=== PATIENT | male | born 1970 | race Caucasian/White ===

== ENCOUNTER 2019-04-08 19:32 | Emergency (ER) | payer OTHER ==
--- OUTSIDE RECORDS SUMMARY | 2019-04-08 19:35 | XMS REPORT ---
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 Assessment Hyperlipidemia, mixed E78.2 Active Assessment Vitamin D deficiency E55.9 Active Assessment Allergic rhinitis, seasonal J30.2 Active Problem Hyperlipidemia, mixed E78.2 Active Problem Allergic rhinitis, seasonal J30.2 Active Problem Vitamin D deficiency E55.9 Active Problem Controlled type 2 diabetes mellitus E11.29 Active with other diabetic kidney complication, without long-term current use of insulin Assessment Controlled type 2 diabetes mellitus E11.29 Active with other diabetic kidney complication, without long-term current use of insulin Problem 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 Problem Renal colic N23 Active Medications Medication Code Code Instructions Start End Status Dosage System Date Date ProAir [facility] 47711355823 108 (90 Base) Active 2 puffs as RespiClick MCG/ACT needed Inhalation every 6 hrs Lisinopril [facility] 99062889537 5 MG Orally Once Active 1 tablet a day Glyxambi [facility] 21813621086 25-5 MG Orally Rebecca Active 1 tablet Once a day 21, in the 2018 morning Metformin HCl ND 93122133323 1000 MG Orally Active 1 tablet Twice a day with meals Flomax [facility] 75638330554 0.4 MG Orally Active 1 capsule Once a day Lipitor [facility] 71698624669 20 MG Orally Active 1 tablet Once a day Results No Known Results Summary Purpose [employer] Submission
--- OUTSIDE RECORDS SUMMARY | 2019-04-08 19:35 | XMS REPORT ---
:1970 Author Organization eClinicalWorks Care Team Providers Name Role Phone Yoli Fitzpatrickh Provider Role Unavailable Allergies, Adverse Reactions, Alerts Substance Reaction Event Type N.K.D.A. 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 Problem Renal colic N23 Active Problem Hyperlipidemia, mixed E78.2 Active Problem Allergic rhinitis, seasonal J30.2 Active Assessment Adult BMI 36.0-36.9 kg/sq m Z68.36 Active Assessment Kidney stones N20.0 Active Assessment Encounter for dietary counseling and Z71.3 Active surveillance Assessment Vitamin D deficiency E55.9 Active Assessment 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 Active Assessment Allergic rhinitis, seasonal J30.2 Active Assessment Hyperlipidemia, mixed E78.2 Active Assessment 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 Assessment Controlled type 2 diabetes mellitus E11.29 Active with other diabetic kidney complication, without long-term current use of insulin Medications Medication Code Code Instructions Start End Status Dosage System Date Date ProAir [facility] 13024717995 108 (90 Base) Active 2 puffs as RespiClick MCG/ACT needed Inhalation every 6 hrs Lisinopril [facility] 35349901982 5 MG Orally Once Active 1 tablet a day Flomax [facility] 85809064271 0.4 MG Orally Active 1 capsule Once a day Gabapentin [facility] 87986173036 300 MG Orally Active 1 capsule Twice a day Lipitor [facility] 62525370685 40 MG Orally Active 1 tablet Once a day Glyxambi [facility] 56117384313 25-5 MG Orally Active 1 tablet Once a day in the morning Gabapentin [facility] 44185796298 300 MG Orally Active 1 capsule [facility] 36429153755 - Active USE 2 TIMES A DAY E 11.9 Results No Known Results Summary Purpose eClinicalWorks Submission
--- OUTSIDE RECORDS SUMMARY | 2019-04-08 19:35 | XMS REPORT ---
:1970 Author Organization eClinicalWorks Care Team Providers Name Role Phone Amari En Provider Role Unavailable Allergies, Adverse Reactions, Alerts Substance Reaction Event Type N.K.D.A. 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 Active Problem Renal colic N23 Active Problem Kidney stones N20.0 Active Problem Hyperlipidemia, mixed E78.2 Active Problem Allergic rhinitis, seasonal J30.2 Active Problem Controlled type 2 diabetes mellitus E11.29 Active with other diabetic kidney complication, without long-term current use of insulin Problem Vitamin D deficiency E55.9 Active Assessment 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 Assessment Vitamin D deficiency E55.9 Active Assessment Kidney stones N20.0 Active Assessment 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 Active Assessment Allergic rhinitis, seasonal J30.2 Active Assessment Hyperlipidemia, mixed E78.2 Active Medications Medication Code Code Instructions Start End Status Dosage System Date Date Lyrica [facility] 18246648700 50 MG Orally Inactive 1 capsule Twice a day Gabapentin [facility] 93518226138 300 MG Orally Active 1 capsule Twice a day Glyxambi [facility] 40087606393 25-5 MG Orally Active 1 tablet Once a day in the morning Lipitor [facility] 25651122356 20 MG Orally Active 1 tablet Once a day Lisinopril [facility] 06580236649 5 MG Orally Active 1 tablet Once a day Flomax [facility] 65622269317 0.4 MG Orally Active 1 capsule Once a day OneTouch Verio [facility] 72035994853 - Active USE 2 TIMES A DAY E 11.9 Metformin HCl [facility] 00899753692 1000 MG Orally Inactive 1 tablet Twice a day with meals ProAir [facility] 96153211102 108 (90 Base) Active 2 puffs as RespiClick MCG/ACT needed Inhalation every 6 hrs Results No Known Results Summary Purpose eClinicalWorks Submission
--- OUTSIDE RECORDS SUMMARY | 2019-04-08 19:35 | XMS REPORT ---
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 Assessment Kidney stones N20.0 Active Assessment Controlled type 2 diabetes mellitus E11.29 Active with other diabetic kidney complication, without long-term current use of insulin Assessment Hyperlipidemia, mixed E78.2 Active Problem 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 Active Problem Renal colic N23 Active Problem Kidney stones N20.0 Active Problem Hyperlipidemia, mixed E78.2 Active Problem Allergic rhinitis, seasonal J30.2 Active Problem Controlled type 2 diabetes mellitus E11.29 Active with other diabetic kidney complication, without long-term current use of insulin Problem Vitamin D deficiency E55.9 Active Medications Medication Code System Code Instructions Start End Date Status Dosage Date Lipitor [facility] 23471519870 20 MG Orally Active 1 tablet Once a day Flomax [facility] 74493859489 0.4 MG Orally Active 1 capsule Once a day Glyxambi [facility] 99262223169 25-5 MG Orally Active 1 tablet in Once a day the morning Lisinopril [facility] 12728739234 5 MG Orally Once Active 1 tablet a day Results No Known Results Summary Purpose eClinicalWorks Submission
--- OUTSIDE RECORDS SUMMARY | 2019-04-08 19:35 | XMS REPORT ---
:1970 Author Organization eClinicalWorks Care Team Providers Name Role Phone En Fitzpatrick Provider Role Unavailable Allergies No Known Allergies Problems Problem Type Condition Code Onset Dates Condition Status Problem 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 [...] D deficiency E55.9 Active Medications Medication Code Code Instructions Start End Status Dosage System Date Date Lisinopril [facility] 49592668964 5 MG Orally Once Active 1 tablet a day Lipitor ND 21818665666 20 MG Orally Active 1 tablet Once a day Metformin HCl ND 15420682661 1000 MG Orally Active 1 tablet Twice a day with meals Glyxambi ND 26608624977 25-5 MG Orally Active 1 tablet Once a day in the morning Lyrica ND 63214961797 50 MG Orally March 28, March 31, Active 1 capsule Twice a day 2017 2017 Gabapentin ND 62401619004 100 MG Orally March 31, Active 1 capsule Twice a day 2017 ProAir [facility] 57785229105 108 (90 Base) Active 2 puffs as RespiClick MCG/ACT needed Inhalation every 6 hrs Flomax [facility] 21609285440 0.4 MG Orally Active 1 capsule Once a day Results No Known Results Summary Purpose eClinicalWorks Submission
--- OUTSIDE RECORDS SUMMARY | 2019-04-08 19:35 | XMS REPORT ---
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 Active Problem Renal colic N23 Active Problem Kidney stones N20.0 Active Problem Hyperlipidemia, mixed E78.2 Active Problem Allergic rhinitis, seasonal J30.2 Active Problem Controlled type 2 diabetes mellitus E11.29 Active with other diabetic kidney complication, without long-term current use of insulin Problem Vitamin D deficiency E55.9 Active Assessment Allergic rhinitis, seasonal J30.2 Active Assessment 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 Assessment Vitamin D deficiency E55.9 Active Assessment Kidney stones N20.0 Active Assessment 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 Active Medications Medication Code Code Instructions Start End Status Dosage System Date Date Lipitor [facility] 61127771534 20 MG Orally Active 1 tablet Once a day Lisinopril [facility] 28045011523 5 MG Orally Once Active 1 tablet a day Flomax [facility] 82473155036 0.4 MG Orally Active 1 capsule Once a day Metformin HCl [facility] 31337578663 1000 MG Orally Active 1 tablet Twice a day with meals Glyxambi [facility] 24873870149 25-5 MG Orally Active 1 tablet Once a day in the morning Lyrica ND 24094651176 50 MG Orally March 28, Active 1 capsule Twice a day 2018 ProAir [facility] 05261661564 108 (90 Base) Active 2 puffs as RespiClick MCG/ACT needed Inhalation every 6 hrs Results No Known Results Summary Purpose eClinicalWorks Submission
--- OUTSIDE RECORDS SUMMARY | 2019-04-08 19:35 | XMS REPORT | Clinical Summary ---
:1970 Author Organization [facility] Address [address] [place] [address] Care Team Providers Name Role Phone Asked, No Pcp Primary Care Provider Unavailable Allergies Active Allergy Reactions Severity Noted Date Comments Aspirin 12/13/2016 Hyperthermia (during childhood) Medications Medication Sig Dispensed Refills Start Date End Date Status CETIRIZINE HCL (ZYRTEC Take 1 tablet by 0 Active ORAL) mouth daily. NAPROXEN SODIUM (ALEVE Take 2 tablets by 0 Active ORAL) mouth daily as needed. HYDROCODONE/ACETAMINOP Take by mouth as 0 Active HEN (NORCO ORAL) needed. Active Problems Not on file Social History Tobacco Use Types Packs/Day Years Used Date Current Every Day Smoker Cigarettes 0.25 35 Alcohol Use Drinks/Week oz/Week Comments No Sex Assigned at Date Recorded Not on file Job Start Date Occupation Industry Not on file Not on file Not on file Travel History Travel Start Travel End No recent travel history available. Last Filed Vital Signs Not on file Plan of Treatment Health Maintenance Due Date Last Done Comments COLON CANCER SCREENING 2018 SHINGLES VACCINES (#1) 2018 INFLUENZA VACCINE 06/18/2019 Results Not on fileafter 04/07/2018 Advance Directives Patient has advance care planning documents on file. For more information, please contact:[id number] [place] [address]
--- NOTE | 2019-04-08 20:47 | RAD REPORT ---
EXAM DESCRIPTION: RAD - Shoulder Right 2 View - 04/08/2019 8:38 pm CLINICAL HISTORY: PAIN COMPARISON: No comparisons FINDINGS: Mild AC joint and glenohumeral joint arthritic changes. No fracture or dislocation seen.
--- NOTE | 2019-04-08 20:59 | EDPHYS ---
Physician Documentation [facility] Name: Parker Miller Jr Age: 48 yrs Sex: Male : 1970 Arrival Date: 04/08/2019 Time: 19:36 Bed 19 Private MD: ED Physician Sukumar Leblanc HPI: 04/08 20:53 This 48 yrs old Male presents to ER via Ambulatory with complaints of gs Shoulder Pain, Arm Pain, down to fingers. 20:53 The patient or guardian complains of pain. right shoulder. Onset: The symptoms/episode gs began/occurred 6 month(s) ago. Modifying factors: The symptoms are aggravated by movement. Associated signs and symptoms: Pertinent negatives: chest pain, shortness of breath. Severity of symptoms: At their worst the symptoms were moderate, in the emergency department the symptoms are unchanged. The patient has experienced similar episodes in the past, chronically. Historical: - Allergies: 19:48 Aspirin; aj1 - Home Meds: 19:48 unknown- patient does not know what medications he takes [Active]; aj1 - PMHx: 19:48 Kidney stones; Diabetes - NIDDM; neuropathy; aj1 - Immunization history:: Flu vaccine is not up to date. - Social history:: Smoking status: Patient uses tobacco products, smokes one pack cigarettes per day. - Ebola Screening: : Patient denies travel to an Ebola-affected area in the 21 days before illness onset. ROS: 20:53 All other systems are negative. gs Exam: 20:53 Head/Face: Normocephalic, atraumatic. Eyes: Pupils equal round and reactive to light, gs extra-ocular motions intact. Lids and lashes normal. Conjunctiva and sclera are non-icteric and not injected. Cornea within normal limits. Periorbital areas with no swelling, redness, or edema. ENT: Nares patent. No nasal discharge, no septal abnormalities noted. Tympanic membranes are normal and external auditory canals are clear. Oropharynx with no redness, swelling, or masses, exudates, or evidence of obstruction, uvula midline. Mucous membranes moist. Neck: Trachea midline, no thyromegaly or masses palpated, and no cervical lymphadenopathy. Supple, full range of motion without nuchal rigidity, or vertebral point tenderness. No Meningismus. Chest/axilla: Normal chest wall appearance and motion. Nontender with no deformity. No lesions are appreciated. Cardiovascular: Regular rate and rhythm with a normal S1 and S2. No gallops, murmurs, or rubs. Normal PMI, no JVD. No pulse deficits. Respiratory: Lungs have equal breath sounds bilaterally, clear to auscultation and percussion. No rales, rhonchi or wheezes noted. No increased work of breathing, no retractions or nasal flaring. Abdomen/GI: Soft, non-tender, with normal bowel sounds. No distension or tympany. No guarding or rebound. No evidence of tenderness throughout. Skin: Warm, dry with normal turgor. Normal color with no rashes, no lesions, and no evidence of cellulitis. Neuro: Awake and alert, GCS 15, oriented to person, place, time, and situation. Cranial nerves II-XII grossly intact. Motor strength 5/5 in all extremities. Sensory grossly intact. Cerebellar exam normal. Normal gait. 20:53 Constitutional: The patient appears alert, awake. 20:53 Musculoskeletal/extremity: Pulses: are normal with no appreciated deficits, Sensation intact. Joints: the right shoulder displays painful range of motion, tenderness. Vital Signs: 19:48 BP 114 / 75; Pulse 71; Resp 18; Temp 97.4; Pulse Ox 95% on R/A; Weight 111.13 kg (R); aj1 Height 5 ft. 9 in. (175.26 cm) (R); Pain 10/10; 21:08 BP 121 / 79; Pulse 74; Resp 18; Temp 97.5(O); Pulse Ox 99% on R/A; Pain 10/10; ed1 19:48 Body Mass Index 36.18 (111.13 kg, 175.26 cm) [facility] MDM: 20:18 Patient medically screened. gs 20:53 Differential diagnosis: tendonitis. Data reviewed: vital signs, nurses notes, gs radiologic studies. Counseling: I had a detailed discussion with the patient and/or guardian regarding: the historical points, exam findings, and any diagnostic results supporting the discharge/admit diagnosis, the need for outpatient follow up, a orthopedic surgeon. Response to treatment: the patient's symptoms have mildly improved after treatment, and as a result, I will discharge patient. 04/08 20:21 Order name: Shoulder Right (2 View) XRAY; Complete Time: 20:53 Administered Medications: 21:08 Drug: traMADol 50 mg Route: PO; ed1 21:10 Follow up: Response: Medication administered at discharge. ed1 Disposition: 04/08/19 20:58 Discharged to Home. Impression: Arthropathies in other specified diseases classified elsewhere, right shoulder. - Condition is Stable. - Discharge Instructions: Arthritis, [id number]. - Prescriptions for Tramadol 50 mg Oral Tablet - take 1 tablet by ORAL route every 8 hours as needed; 12 tablet. - Medication Reconciliation Form, Thank You Letter, Antibiotic Education, Prescription Opioid Use form. - Follow up: Private Physician; When: 2 - 3 days; Reason: Re-evaluation by your physician. Follow up: Juma Sena MD; When: 2 - 3 days; Reason: Re-evaluation by your physician. Signatures: Dispatcher [employer] EDMS Isela Doty RN RN aj1 Silvia Zepeda RN RN ed1 Sukumar Leblanc MD MD Corrections: (The following items were deleted from the chart) 20:59 20:58 04/08/2019 20:58 Discharged to Home. Impression: Arthropathies in other specified gs diseases classified elsewhere, right shoulder. Condition is Stable. Forms are Medication Reconciliation Form, Thank You Letter, Antibiotic Education, Prescription Opioid Use. Follow up: Private Physician; When: 2 - 3 days; Reason: Re-evaluation by your physician. 21:10 20:59 04/08/2019 20:58 Discharged to Home. Impression: Arthropathies in other specified ed1 diseases classified elsewhere, right shoulder. Condition is Stable. Forms are Medication Reconciliation Form, Thank You Letter, Antibiotic Education, Prescription Opioid Use. Follow up: Private Physician; When: 2 - 3 days; Reason: Re-evaluation by your physician. Follow up: Juma Sena; When: 2 - 3 days; Reason: Re-evaluation by your physician.
--- NOTE | 2019-04-08 20:59 | ER ---
Nurse's Notes [facility] Name: Parker Miller Jr Age: 48 yrs Sex: Male : 1970 Arrival Date: 04/08/2019 Time: 19:36 Bed 19 Private MD: Diagnosis: Arthropathies in other specified diseases classified elsewhere, right shoulder Presentation: 04/08 19:45 Presenting complaint: Patient states: "Im having sharp pain in my arm, from my shoulder aj1 all the way down to my fingers" Reports pain to right shoulder and arm since July 2018. Patient was advised by his primary care doctor to take more of his gabapentin, but he says that that is not helping. Transition of care: patient was not received from another setting of care. Onset of symptoms was July 2018. Risk Assessment: Do you want to hurt yourself or someone else? Patient reports no desire to harm self or others. Initial Sepsis Screen: Does the patient meet any 2 criteria? No. Patient's initial sepsis screen is negative. Does the patient have a suspected source of infection? No. Patient's initial sepsis screen is negative. Care prior to arrival: None. 19:45 Method Of Arrival: Ambulatory aj1 19:45 Acuity: LAKEISHA 4 aj1 Triage Assessment: 19:48 General: Appears in no apparent distress. comfortable, Behavior is calm, cooperative, aj1 appropriate for age. Pain: Complains of pain in right arm. Neuro: Level of Consciousness is awake, alert, obeys commands. Cardiovascular: Patient's skin is warm and dry. Respiratory: Airway is patent Respiratory effort is even, unlabored, Respiratory pattern is regular, symmetrical. Historical: - Allergies: 19:48 Aspirin; aj1 - Home Meds: 19:48 unknown- patient does not know what medications he takes [Active]; aj1 - PMHx: 19:48 Kidney stones; Diabetes - NIDDM; neuropathy; aj1 - Immunization history:: Flu vaccine is not up to date. - Social history:: Smoking status: Patient uses tobacco products, smokes one pack cigarettes per day. - Ebola Screening: : Patient denies travel to an Ebola-affected area in the 21 days before illness onset. Screenin:50 Abuse screen: Denies threats or abuse. Denies injuries from another. Nutritional ed1 screening: No deficits noted. Tuberculosis screening: No symptoms or risk factors identified. Fall Risk None identified. Assessment: 19:50 General: Appears in no apparent distress. Behavior is calm, cooperative. Pain: ed1 Complains of pain in right arm Pain currently is 10 out of 10 on a pain scale. Quality of pain is described as sharp, shooting, Pain began July. Neuro: Level of Consciousness is awake, alert, obeys commands, Oriented to person, place, time, situation, Inspector Clip On Sunglasses are equal bilaterally. Cardiovascular: Denies chest pain, Heart tones S1 S2 present. Respiratory: Airway is patent Respiratory effort is even, unlabored, Respiratory pattern is regular, symmetrical, Breath sounds are clear bilaterally. Denies cough, shortness of breath. GI: No signs and/or symptoms were reported involving the gastrointestinal system. : No signs and/or symptoms were reported regarding the genitourinary system. EENT: No signs and/or symptoms were reported regarding the EENT system. Derm: Skin is intact, is healthy with good turgor, Skin is dry, Skin is normal, Skin temperature is warm. Musculoskeletal: Circulation, motion, and sensation intact. Range of motion: limited in right shoulder Reports pain in right arm since July. 21:08 Reassessment: Patient appears in no apparent distress at this time. No changes from ed1 previously documented assessment. Patient and/or family updated on plan of care and expected duration. Pain level reassessed. Patient is alert, oriented x 3, equal unlabored respirations, skin warm/dry/pink. Vital Signs: 19:48 BP 114 / 75; Pulse 71; Resp 18; Temp 97.4; Pulse Ox 95% on R/A; Weight 111.13 kg (R); aj1 Height 5 ft. 9 in. (175.26 cm) (R); Pain 10/10; 21:08 BP 121 / 79; Pulse 74; Resp 18; Temp 97.5(O); Pulse Ox 99% on R/A; Pain 10/10; ed1 19:48 Body Mass Index 36.18 (111.13 kg, 175.26 cm) [facility] ED Course: 19:36 Patient arrived in ED. es 19:46 Triage completed. aj1 19:48 Arm band placed on Patient placed in an exam room. aj1 19:50 Patient has correct armband on for positive identification. Bed in low position. Call ed1 light in reach. Adult w/ patient. 19:53 Sukumar Leblanc MD is Attending Physician. gs 20:29 Silvia Zepeda, RN is Primary Nurse. ed1 20:38 Shoulder Right (2 View) XRAY In Process Unspecified. EDMS 20:58 Juma Sena MD is Referral Physician. gs 21:08 No provider procedures requiring assistance completed. Patient did not have IV access ed1 during this emergency room visit. Administered Medications: 21:08 Drug: traMADol 50 mg Route: PO; ed1 21:10 Follow up: Response: Medication administered at discharge. ed1 Outcome: 20:58 Discharge ordered by . gs 21:08 Discharged to home ambulatory, with significant other. ed1 21:08 Condition: good 21:08 Discharge instructions given to patient, Instructed on discharge instructions, follow up and referral plans. medication usage, Demonstrated understanding of instructions, follow-up care, medications, Prescriptions given X 1. 21:10 Patient left the ED. ed1 Signatures: Dispatcher [employer] EDMS Isela Doty RN RN aj1 Lexi Jack Erika, RN RN ed1 Sukumar Leblanc MD MD
[2019-04-08] MEDS ORDERED: TRAMADOL HCL 50 MG TAB ONE (21:17)
[2019-04-08 21:36] VITALS: BP 121/79; TEMP 97.5; O2SAT 99
== END 2019-04-08 21:10 | disposition home or self-care (01) ==
LOC: ER 19:32
DX: M12.811 Other specific arthropathies, not elsewhere classified, right shoulder (principal); F17.210 Nicotine dependence, cigarettes, uncomplicated
CPT/HCPCS: 99283

== ENCOUNTER 2020-02-01 16:41 | Emergency (ER) | payer OTHER ==
--- OUTSIDE RECORDS SUMMARY | 2020-02-01 16:43 | XMS REPORT ---
:1970 Author Organization eClinicalWorks Care Team Providers Name Role Phone Yoli Fitzpatrickh Provider Role Unavailable Allergies, Adverse Reactions, Alerts Substance Reaction Event Type N.K.D.A. Info Not Available Non Drug Allergy Problems Problem Type Condition Code Onset Dates Condition Status Problem Vitamin D deficiency E55.9 Active Problem Renal colic N23 Active Problem Controlled type 2 diabetes mellitus E11.29 Active with other diabetic kidney complication, without long-term current use of insulin Problem Adult BMI 36.0-36.9 kg/sq m Z68.36 Active Assessment Noncompliance w/medication treatment Z91.14 Active due to intermit use of medication Problem 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 Active Assessment Noncompliance with dietary Z91.11 Active restriction Problem Noncompliance with dietary Z91.11 Active restriction Problem Allergic rhinitis, seasonal J30.2 Active Problem 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 Problem Kidney stones N20.0 Active Problem Hyperlipidemia, mixed E78.2 Active Assessment Kidney stones N20.0 Active Assessment Allergic rhinitis, seasonal J30.2 Active Assessment Encounter for dietary counseling and Z71.3 Active surveillance Assessment Adult BMI 36.0-36.9 kg/sq m Z68.36 Active Assessment 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 Active Assessment Hyperlipidemia, mixed E78.2 Active Assessment 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 Assessment Controlled type 2 diabetes mellitus E11.29 Active with other diabetic kidney complication, without long-term current use of insulin Assessment Vitamin D deficiency E55.9 Active Medications Medication Code Code Instructions Start End Date Status Dosage System Date OneTouch Verio [facility] 30275696185 - Active USE 2 TIMES A DAY E 11.9 Losartan ND 81717656802 25 MG Orally Oct 22, Active 1 tablet Potassium Once a day 2018 ProAir [facility] 20225166401 108 (90 Base) Active 2 puffs as RespiClick MCG/ACT needed Inhalation every 6 hrs Lipitor [facility] 56240588183 40 MG Orally Active 1 tablet Once a day Gabapentin [facility] 76127956473 300 MG Orally Active 1 capsule Twice a day Gabapentin [facility] 16113069646 300 MG Orally Active 1 capsule Three times a day Flomax [facility] 04803272968 0.4 MG Orally Active 1 capsule Once a day Glyxambi [facility] 92059285578 25-5 MG Orally January Active 1 tablet Once a day 2019 in the morning Vitamin D3 [facility] 59312466553 93196 UNIT Oct 22January Active 1 capsule Orally Once a 2019 2019 week x 12 weeks Lisinopril [facility] 49286435527 5 MG Orally Inactive 1 tablet Once a day Results No Known Results Summary Purpose eClinicalWorks Submission
--- OUTSIDE RECORDS SUMMARY | 2020-02-01 16:43 | XMS REPORT ---
[...] End Status Dosage System Date Date ProAir [facility] 22536866782 108 (90 Base) Active 2 puffs as RespiClick MCG/ACT needed Inhalation every [address] [facility] 66428711991 5 MG Orally Once Active 1 tablet a day Flomax [facility] 00363801837 0.4 MG Orally Active 1 capsule Once a day Gabapentin [facility] 25454747792 300 MG Orally Active 1 capsule Twice a day Lipitor [facility] 96823296785 40 MG Orally Active 1 tablet Once a day Glyxambi [facility] 71688633552 25-5 MG Orally Active 1 tablet Once a day in the morning Gabapentin [facility] 16855534207 300 MG Orally Active 1 capsule [facility] 87571749682 - Active USE 2 TIMES A DAY E 11.9 Results No Known Results Summary Purpose eClinicalWorks Submission
--- OUTSIDE RECORDS SUMMARY | 2020-02-01 16:43 | XMS REPORT ---
:1970 [facility] Address [address] [place] [address] [address] [place] [address] Care Team Providers Name Role Phone Unavailable Unavailable Unavailable Problems This patient has no known problems. Allergies, Adverse Reactions, Alerts This patient has no known allergies or adverse reactions. Medications This patient has no known medications.
--- OUTSIDE RECORDS SUMMARY | 2020-02-01 16:43 | XMS REPORT ---
[...] Start End Date Status Dosage Date Lipitor [facility] 17664024044 20 MG Orally Active 1 tablet Once a day Flomax [facility] 14326766021 0.4 MG Orally Active 1 capsule Once a day Glyxambi [facility] 51565115485 25-5 MG Orally Active 1 tablet in Once a day the morning Lisinopril [facility] 16374069641 5 MG Orally Once Active 1 tablet a day Results No Known Results Summary Purpose eClinicalWorks Submission
[2020-02-01] MEDS ORDERED: MORPHINE 4 MG/ML SYR ONE ×2 (17:15→19:42)
[2020-02-01] MEDS ORDERED: NA CHLORIDE 0.9% 1,000 ML ONE (17:15)
[2020-02-01] MEDS ORDERED: ONDANSETRON 4 MG/2 ML VIAL ONE (17:15)
[2020-02-01 17:17] LABS: Absolute Lymphocytes (CBC) 1.8 K/uL (0.7-4.9); Basophils % 0.7 % (0-1.3); Hematocrit 50.5 % (39.6-49.0); Lymphocytes % 24.7 % (15.3-44.8); MPV 10.3 fL (7.6-11.3); RBC Red Blood Cell Count 5.14 M/uL (4.33-5.43)
[2020-02-01 17:33] LABS: ALT/SGPT 51 U/L (12-78); AST/SGOT 20 U/L (15-37); Albumin 3.7 g/dL (3.4-5.0); Alkaline Phosphatase 87 U/L (45-117); BUN Blood Urea Nitrogen 16 mg/dL (7-18); Bicarbonate 22 mmol/L (21-32); Bilirubin Direct < 0.1 mg/dL (0-0.2); Bilirubin Total 0.4 mg/dL (0.2-1.0); Glucose Level 241 mg/dL (74-106); Lipase 115 U/L (73-393); Potassium 3.7 mmol/L (3.5-5.1); Protein, Total 7.1 g/dL (6.4-8.2); Sodium Level 137 mmol/L (136-145)
--- NOTE | 2020-02-01 18:33 | RAD REPORT ---
EXAM DESCRIPTION: CT - Abdomen Pelvis W Contrast - 02/01/2020 6:10 pm CLINICAL HISTORY: ABD PAIN COMPARISON: No comparisons TECHNIQUE: Biphasic, helical CT imaging of the abdomen and pelvis was performed following 100 ml non -ionic IV contrast. No oral contrast. All CT scans are performed using dose optimization technique as appropriate and may include automated exposure control or mA/KV adjustment according to patient size. FINDINGS: No suspicious findings in the lung bases. Fatty infiltration of the liver is present. No focal liver lesion. Spleen and pancreas show no suspic ious findings. Gallbladder and biliary tree are also without suspicious finding. Symmetric renal function is seen with no hydronephrosis or suspicious renal mass. No pyelonephritis o r acute parenchymal process. Nonobstructing cluster of calcifications lower pole right kidney 12 mm i n diameter. There is a 7 mm calcification lower pole left kidney. No bladder abnormality. No adrenal abnormalities. No dilated bowel loops or bowel wall thickening. Appendix is normal. No active GI process identifiabl e. No free air, free fluid or inflammatory stranding. No mass or bulky lymphadenopathy. Very minimal right inguinal hernia. No suspicious bony findings. No acute vascular finding. IMPRESSION: Contrast enhanced CT abdomen and pelvis showing no acute finding. Nonacute findings det radha in the body of the report.
--- NOTE | 2020-02-01 19:39 | EDPHYS ---
Physician Documentation [facility] Name: Parker Miller Jr Age: 49 yrs Sex: Male : 1970 Arrival Date: 02/01/2020 Time: 16:44 Bed 18 Private MD: En Fitzpatrick ED Physician Jimy Escobedo HPI: 01/31 17:35 This 49 yrs old Male presents to ER via Ambulatory with complaints of pm1 Vomiting/Diarrhea. 17:35 The patient presents to the emergency department with nausea, vomiting, diarrhea. pm1 Onset: The symptoms/episode began/occurred yesterday. Possible causes: PCP believes that it might be diabetic medications and recommended evaluation at the ER for pancreatitis. Patient without any history of ETOH use. Unable to recall name of medication for diabetes but he has taken it for multiple years. The symptoms are aggravated by nothing. The symptoms are alleviated by nothing. Associated signs and symptoms: Pertinent positives: abdominal pain, Pertinent negatives: constipation, dysuria, fever. Severity of symptoms: in the emergency department the symptoms are unchanged. The patient has not recently seen a physician, But contacted his PCP over the phone about current symptoms today and was referred to the ER for evalution. Historical: - Allergies: 17:01 Aspirin; ca1 - Home Meds: 17:01 unknown- patient does not know what medications he takes [Active]; ca1 - PMHx: 17:01 Diabetes - NIDDM; Kidney stones; neuropathy; ca1 - PSHx: 17:01 None; ca1 - Immunization history:: Adult Immunizations up to date, Flu vaccine is not up to date. - Social history:: Smoking status: Patient reports the use of cigarette tobacco products, smokes one-half pack cigarettes per day. ROS: 17:35 Constitutional: Negative for fever, chills, and weight loss, ENT: Negative for injury, pm1 pain, and discharge, Neck: Negative for injury, pain, and swelling, Cardiovascular: Negative for chest pain, palpitations, and edema, Respiratory: Negative for shortness of breath, cough, wheezing, and pleuritic chest pain. 17:35 Back: Negative for injury and pain, : Negative for injury, bleeding, discharge, and swelling, MS/Extremity: Negative for injury and deformity, Skin: Negative for injury, rash, and discoloration, Neuro: Negative for headache, weakness, numbness, tingling, and seizure. 17:35 Abdomen/GI: Positive for abdominal pain, nausea, vomiting, and diarrhea, bloating sensation, Negative for constipation. Exam: 17:35 Constitutional: This is a well developed, well nourished patient who is awake, alert, pm1 and in no acute distress. Head/Face: Normocephalic, atraumatic. Neck: Trachea midline, no thyromegaly or masses palpated, and no cervical lymphadenopathy. Supple, full range of motion without nuchal rigidity, or vertebral point tenderness. No Meningismus. Chest/axilla: Normal chest wall appearance and motion. Nontender with no deformity. No lesions are appreciated. Cardiovascular: Regular rate and rhythm with a normal S1 and S2. No gallops, murmurs, or rubs. Normal PMI, no JVD. No pulse deficits. Respiratory: Lungs have equal breath sounds bilaterally, clear to auscultation and percussion. No rales, rhonchi or wheezes noted. No increased work of breathing, no retractions or nasal flaring. 17:35 Back: No spinal tenderness. No costovertebral tenderness. Full range of motion. Skin: Warm, dry with normal turgor. Normal color with no rashes, no lesions, and no evidence of cellulitis. MS/ Extremity: Pulses equal, no cyanosis. Neurovascular intact. Full, normal range of motion. 17:35 Abdomen/GI: Inspection: obese Bowel sounds: normal, Palpation: abdomen is soft and non-tender, in all quadrants, mass, is not appreciated, rebound tenderness, is not appreciated. 17:35 Neuro: Orientation: is normal, Mentation: is normal, Motor: is normal. Vital Signs: 16:56 BP 149 / 84; Pulse 96; Resp 20 S; Temp 97.2(TE); Pulse Ox 97% on R/A; Weight 111.13 kg ca1 (R); Height 5 ft. 9 in. (175.26 cm) (R); Pain 7/10; 17:25 BP 121 / 70; Pulse 81; Resp 16 S; Pulse Ox 95% on R/A; ca1 18:30 BP 109 / 60; Pulse 70; Resp 16 S; Pulse Ox 96% on R/A; ca1 19:30 BP 111 / 65; Pulse 76; Resp 17 S; Pulse Ox 96% on R/A; ca1 16:56 Body Mass Index 36.18 (111.13 kg, 175.26 cm) ca1 MDM: 16:50 Patient medically screened. pm1 17:39 Data reviewed: vital signs. Data interpreted: Pulse oximetry: on room air is 95 %. pm1 Interpretation: normal. 19:37 Counseling: I had a detailed discussion with the patient and/or guardian regarding: the pm1 historical points, exam findings, and any diagnostic results supporting the discharge/admit diagnosis, lab results, radiology results, the need for outpatient follow up, to return to the emergency department if symptoms worsen or persist or if there are any questions or concerns that arise at home. 01/31 16:56 Order name: Basic Metabolic Panel; Complete Time: 17:35 pm1 01/31 16:56 Order name: CBC with Diff; Complete Time: 17:25 pm1 01/31 16:56 Order name: Creatinine for Radiology; Complete Time: 17:35 pm1 01/31 16:56 Order name: Hepatic Function; Complete Time: 17:35 pm1 01/31 16:56 Order name: Lipase; Complete Time: 17:35 pm1 01/31 16:56 Order name: CT Abd/Pelvis - IV Contrast Only; Complete Time: 18:38 pm1 01/31 16:56 Order name: IV Saline Lock; Complete Time: 17:08 pm1 01/31 16:56 Order name: Labs collected and sent; Complete Time: 17:08 pm1 Administered Medications: 17:09 Drug: NS 0.9% 1000 ml Route: IV; Rate: 1000 ml; Site: right forearm; ca1 18:00 Follow up: Response: No adverse reaction; IV Status: Completed infusion ca1 17:10 Drug: Zofran (Ondansetron) 4 mg Route: IVP; Site: right forearm; ca1 18:00 Follow up: Response: No adverse reaction; Nausea is decreased ca1 17:13 Drug: morphine 4 mg {Note: rass - 0.} Route: IVP; Site: right forearm; ca1 18:00 Follow up: Response: No adverse reaction; Pain is decreased; RASS: Alert and Calm (0) ca1 19:36 Drug: Phenergan 12.5 mg Route: IVP; Site: right forearm; ca1 19:44 Follow up: Response: No adverse reaction; Nausea is decreased ca1 19:38 Drug: morphine 4 mg {Note: rass - 0.} Route: IVP; Site: right forearm; ca1 19:44 Follow up: Response: No adverse reaction; Pain is decreased; RASS: Alert and Calm (0) ca1 Disposition: 02/01 07:16 Co-signature as Attending Physician, Jimy Escobedo MD. rn Disposition: 02/01/20 19:38 Discharged to Home. Impression: Unspecified abdominal pain, Vomiting, Diarrhea, unspecified. - Condition is Stable. - Discharge Instructions: Abdominal Pain, Adult, Diarrhea, Adult, Nausea and Vomiting, Adult. - Prescriptions for Bentyl 20 mg Oral Tablet - take 1 tablet by ORAL route every 6 hours As needed; 20 tablet. Zofran 4 mg Oral Tablet - take 1 tablet by ORAL route every 8 hours As needed; 20 tablet. - Medication Reconciliation Form, Thank You Letter, Antibiotic Education, Prescription Opioid Use form. - Follow up: Emergency Department; When: As needed; Reason: Worsening of condition. Follow up: Private Physician; When: 2 - 3 days; Reason: Recheck today's complaints, Continuance of care, Re-evaluation by your physician. - Problem is new. - Symptoms have improved. Signatures: Dispatcher [employer] EDMS Jimy Escobedo MD MD rn Marinas, Patrick, [employer] pm1 Ann Rm RN RN ca1 Corrections: (The following items were deleted from the chart) 03 19:44 16:56 Urine Dipstick-Ancillary ordered. pm1 ca1 20:04 19:38 02/01/2020 19:38 Discharged to Home. Impression: Unspecified abdominal pain; ca1 Vomiting; Diarrhea, unspecified. Condition is Stable. Forms are Medication Reconciliation Form, Thank You Letter, Antibiotic Education, Prescription Opioid Use. Follow up: Emergency Department; When: As needed; Reason: Worsening of condition. Follow up: Private Physician; When: 2 - 3 days; Reason: Recheck today's complaints, Continuance of care, Re-evaluation by your physician. Problem is new. Symptoms have improved. pm1
--- NOTE | 2020-02-01 19:39 | ER ---
Nurse's Notes [facility] Name: Parker Miller Jr Age: 49 yrs Sex: Male : 1970 Arrival Date: 02/01/2020 Time: 16:44 Bed 18 Private MD: En Fitzpatrick Diagnosis: Unspecified abdominal pain;Vomiting;Diarrhea, unspecified Presentation: 01/31 16:56 Chief complaint: Patient states: N/V/D since last night. Called PCP, instructed to come ca1 to the ER to have his pancreas checked. He reports he has been taking a diabetic medication for years that may affect his pancreas as per PCP. He is unable to recall the name of this medication. Denies fever. Coronavirus screen: The patient has NOT traveled to a country currently being monitored by the CDC within the last 14 days. The patient has NOT had contact with any known and/or suspected case of coronavirus. Ebola Screen: Patient negative for fever greater than or equal to 101.5 degrees Fahrenheit, and additional compatible Ebola Virus Disease symptoms Patient denies exposure to infectious person. Patient denies travel to an Ebola-affected area in the 21 days before illness onset. No symptoms or risks identified at this time. Initial Sepsis Screen: Does the patient meet any 2 criteria? No. Patient's initial sepsis screen is negative. Does the patient have a suspected source of infection? No. Patient's initial sepsis screen is negative. Risk Assessment: Do you want to hurt yourself or someone else? Patient reports no desire to harm self or others. Onset of symptoms was February 01, 2020. 16:56 Method Of Arrival: Ambulatory ca1 16:56 Acuity: LAKEISHA 3 ca1 Triage Assessment: 17:01 General: Appears in no apparent distress. comfortable, Behavior is calm, cooperative, ca1 appropriate for age. Pain: Complains of pain in abdomen Pain currently is 7 out of 10 on a pain scale. Pain began 1 day ago. Is intermittent. EENT: No signs and/or symptoms were reported regarding the EENT system. Neuro: Level of Consciousness is awake, alert, obeys commands, Oriented to person, place, time, situation, Appropriate for age. Cardiovascular: Heart tones S1 S2 present Capillary refill < 3 seconds Patient's skin is warm and dry. Respiratory: Airway is patent Respiratory effort is even, unlabored, Respiratory pattern is regular, symmetrical, Breath sounds are clear bilaterally. GI: Abdomen is round non-distended, Bowel sounds present X 4 quads. Reports diarrhea, nausea, vomiting, since last night. : No signs and/or symptoms were reported regarding the genitourinary system. Derm: Skin is intact, is healthy with good turgor, Skin is pink, warm \T\ dry. Musculoskeletal: Circulation, motion, and sensation intact. Capillary refill < 3 seconds. Historical: - Allergies: 17:01 Aspirin; ca1 - Home Meds: 17:01 unknown- patient does not know what medications he takes [Active]; ca1 - PMHx: 17:01 Diabetes - NIDDM; Kidney stones; neuropathy; ca1 - PSHx: 17:01 None; ca1 - Immunization history:: Adult Immunizations up to date, Flu vaccine is not up to date. - Social history:: Smoking status: Patient reports the use of cigarette tobacco products, smokes one-half pack cigarettes per day. Screenin:05 Abuse screen: Denies threats or abuse. Denies injuries from another. Nutritional ca1 screening: No deficits noted. Tuberculosis screening: No symptoms or risk factors identified. Fall Risk IV access (20 points). Assessment: 17:05 Reassessment: SEE TRIAGE ASSESSMENT. GI: Abdomen is round non-distended, Bowel sounds ca1 present X 4 quads. Abd is soft and non tender X 4 quads. Reports diarrhea, nausea, vomiting. 18:00 Reassessment: Patient appears in no apparent distress at this time. Patient and/or ca1 family updated on plan of care and expected duration. Pain level reassessed. Patient is alert, oriented x 3, equal unlabored respirations, skin warm/dry/pink. 19:00 Reassessment: Patient appears in no apparent distress at this time. Patient is alert, ca1 oriented x 3, equal unlabored respirations, skin warm/dry/pink. 19:46 Reassessment: Patient appears in no apparent distress at this time. Patient is alert, ca1 oriented x 3, equal unlabored respirations, skin warm/dry/pink. Vital Signs: 16:56 BP 149 / 84; Pulse 96; Resp 20 S; Temp 97.2(TE); Pulse Ox 97% on R/A; Weight 111.13 kg ca1 (R); Height 5 ft. 9 in. (175.26 cm) (R); Pain 7/10; 17:25 BP 121 / 70; Pulse 81; Resp 16 S; Pulse Ox 95% on R/A; ca1 18:30 BP 109 / 60; Pulse 70; Resp 16 S; Pulse Ox 96% on R/A; ca1 19:30 BP 111 / 65; Pulse 76; Resp 17 S; Pulse Ox 96% on R/A; ca1 16:56 Body Mass Index 36.18 (111.13 kg, 175.26 cm) ca1 ED Course: 16:44 Patient arrived in ED. ag5 16:44 En Fitzpatrick DO is Private Physician. ag5 16:48 Adolph Abad NP is PHCP. pm1 16:48 Jimy Escobedo MD is Attending Physician. pm1 16:55 Ann Rm, ANALY is Primary Nurse. ca1 17:00 Triage completed. ca1 17:00 Initial lab(s) drawn, by me, sent to lab. Inserted saline lock: 20 gauge in right em forearm, using aseptic technique. Blood collected. 17:01 Arm band placed on right wrist. ca1 17:05 Patient has correct armband on for positive identification. Bed in low position. Call ca1 light in reach. Side rails up X 1. Pulse ox on. NIBP on. Warm blanket given. 17:06 Radiology exam delayed due to lab results not completed at this time. (BUN/Creatinine). vm2 18:11 CT Abd/Pelvis - IV Contrast Only In Process Unspecified. EDMS 20:03 No provider procedures requiring assistance completed. IV discontinued, intact, ca1 bleeding controlled, No redness/swelling at site. Pressure dressing applied. Administered Medications: 17:09 Drug: NS 0.9% 1000 ml Route: IV; Rate: 1000 ml; Site: right forearm; ca1 18:00 Follow up: Response: No adverse reaction; IV Status: Completed infusion ca1 17:10 Drug: Zofran (Ondansetron) 4 mg Route: IVP; Site: right forearm; ca1 18:00 Follow up: Response: No adverse reaction; Nausea is decreased ca1 17:13 Drug: morphine 4 mg {Note: rass - 0.} Route: IVP; Site: right forearm; ca1 18:00 Follow up: Response: No adverse reaction; Pain is decreased; RASS: Alert and Calm (0) ca1 19:36 Drug: Phenergan 12.5 mg Route: IVP; Site: right forearm; ca1 19:44 Follow up: Response: No adverse reaction; Nausea is decreased ca1 19:38 Drug: morphine 4 mg {Note: rass - 0.} Route: IVP; Site: right forearm; ca1 19:44 Follow up: Response: No adverse reaction; Pain is decreased; RASS: Alert and Calm (0) ca1 Outcome: 19:38 Discharge ordered by MD. pm1 20:03 Discharged to home ambulatory, with significant other. ca1 20:03 Condition: stable 20:03 Discharge instructions given to patient, Instructed on discharge instructions, follow up and referral plans. medication usage, Demonstrated understanding of instructions, follow-up care, medications, Prescriptions given X 2. 20:04 Patient left the ED. ca1 Signatures: Dispatcher [employer] Andrew Luciano, RN RN em Adolph Abad, [employer]KER pm1 Kaylen Patterson 2 Ann Rm RN RN ca1 Basilio Wild ag5
[2020-02-01] MEDS ORDERED: PROMETHAZINE INJ 25 MG/ML AMP ONE (19:41)
[2020-02-01 20:19] VITALS: TEMP 97.2
[2020-02-01 20:22] VITALS: O2SAT 96
[2020-02-01 20:23] VITALS: BP 111/65
== END 2020-02-01 20:04 | disposition home or self-care (01) ==
LOC: ER 16:41
DX: R11.2 Nausea with vomiting, unspecified (principal); R19.7 Diarrhea, unspecified; F17.210 Nicotine dependence, cigarettes, uncomplicated; Z88.6 Allergy status to analgesic agent
CPT/HCPCS: 96361; 85025; 80048; 36415; 80076; 83690; 74177; 96375; 96374; 99284; Q9967; J2550; J7030; J2405

== ENCOUNTER → 2024-01-28 | Emergency (ER) | payer OTHER ==
[~2024-01-28] MED LIST: HYDROMORPHONE HCL 1 MG/ML INJ ONE; KETOROLAC 30 MG/ML INJ ONE; MAGNESIUM SULFATE 1 gm IVPB 1 GM/100 ML BAG IV ONE; ONDANSETRON 4 MG/2 ML VIAL ONE; TAMSULOSIN 0.4 MG SR CAP ONE
[2024-01-28 13:21] LABS: Absolute Basophils 0.1 K/uL (0-0.5); Absolute Eosinophils 0.3 K/uL (0-0.5); Absolute Lymphocytes (CBC) 2.4 K/uL (0.7-4.9); Basophils % 1.1 % (0-1.3); Eosinophils % 3.3 % (0-4.4); Hematocrit 48.3 % (39.6-49.0); Hemoglobin 17.5 g/dL (13.6-17.9); Lymphocytes % 28.3 % (15.3-44.8); MCV 94.1 fL (80-100); MPV 9.8 fL (7.6-11.3); Platelets 168 thou/uL (152-406); RBC Red Blood Cell Count 5.13 M/uL (4.33-5.43)
--- NOTE | 2024-01-28 13:21 | RAD REPORT ---
EXAM DESCRIPTION: CT - Stone Protocol - 01/28/2024 1:10 pm CLINICAL HISTORY: Flank pain. r/o stone COMPARISON: Abdomen Pelvis W Contrast dated 02/01/2020 TECHNIQUE: Axial images were obtained without oral or IV contrast. Lack of contrast limits solid org an and vascular assessment. The exarf-re-ayhu spans the entirety of the system partially obscuring uppermost abdomen and lung bases. Coronal reformatted images were obtained and reviewed. All CT scans are performed using dose optimization technique as appropriate and may include automated exposure control or mA/KV adjustment according to patient size. FINDINGS: The inferior lung lyons are emphysematous but clear. Mild diffuse fatty liver. Normal spleen. The pancreas and adrenal glands are normal. No pathologic ly mphadenopathy in the abdomen or pelvis. 12 mm stone is present inferior right kidney. Punctate stones are present in the calices right kidney . No hydronephrosis of either kidney. No bowel obstruction, free air, free fluid or abscess. Normal appendix noted. No significant bony abnormality. IMPRESSION: Inferior right renal calculus measuring 12 mm. Additional punctate right renal calculi. No hydronephrosis.
[2024-01-28 13:25] LABS: Urine Bacteria None Seen /HPF (<20); Urine Bilirubin NEGATIVE (Negative); Urine Blood Negative (Negative); Urine Clarity Clear (Clear); Urine Color Light-Yellow (Yellow); Urine Glucose 4+ (Over) (Negative); Urine Protein 1+ (Negative); Urine RBC <5 /HPF (None Seen); Urine Urobilinogen Normal (Normal); Urine Yeast (Budding) Trace /HPF (None Seen); Urine pH 5.5 (5.0-7.0)
[2024-01-28 14:24] LABS: Albumin 3.7 g/dL (3.4-5.0); Albumin/Globulin Ratio 1.1 (1.1-1.8); Anion Gap 11.9 mEq/L (5.0-15.0); Bilirubin Total 0.5 mg/dL (0.2-1.0); Globulin 3.3 g/dL (2.3-3.5)
[2024-01-28 14:25] LABS: Potassium 3.9 mEq/L (3.5-5.1)
[2024-01-28 14:34] LABS: Blood Morphology Comment NOT SEEN (NOT SEEN); Platelet Estimate ADEQ; White Blood Cell Scan OK (OK)
--- NOTE | 2024-01-28 14:48 | EDPHYS ---
Physician Documentation [facility] Name: Parker Miller Jr Age: 53 yrs Sex: Male : 1970 Arrival Date: 01/28/2024 Time: 12:34 Bed 14 Private MD: ED Physician Jimy Escobedo HPI: 01/27 14:01 This 53 yrs old Male presents to ER via Ambulatory with complaints of flank pain. rn 14:01 The patient complains of pain in the right mid back. The pain radiates to the abdomen. rn Onset: The symptoms/episode began/occurred 1 week(s) ago. Modifying factors: The symptoms are alleviated by nothing. the symptoms are aggravated by nothing. Associated signs and symptoms: Pertinent positives: nausea, Pertinent negatives: fever, vomiting. Severity of pain: At its worst the pain was moderate in the emergency department the pain is unchanged. The patient has experienced similar episodes in the past. Patient reports right flank pain that radiates around to abdomen. Identical to previous kidney stone in the past. No fever. No trauma. Began 1 week ago. Historical: - Allergies: 12:48 No Known Allergies; ap3 - Home Meds: 12:48 None [Active]; ap3 - PMHx: 12:48 Kidney stones; neuropathy; Diabetes - NIDDM; ap3 - PSHx: 12:48 None; ap3 - Immunization history:: Client reports receiving the 2nd dose of the Covid vaccine. - Social history:: Smoking status: Patient reports the use of cigarette tobacco products, smokes 1.5 packs per day. - Family history:: not pertinent. - Hospitalizations: : No recent hospitalization is reported. ROS: 14:01 Constitutional: Negative for fever, chills, and weight loss, Cardiovascular: Negative rn for chest pain, palpitations, and edema, Respiratory: Negative for shortness of breath, cough, wheezing, and pleuritic chest pain, Abdomen/GI: Positive for nausea Back: Positive for right flank pain : Negative for injury, bleeding, discharge, and swelling, MS/Extremity: Negative for injury and deformity, Skin: Negative for injury, rash, and discoloration, Neuro: Negative for headache, weakness, numbness, tingling, and seizure, Exam: 14:01 Constitutional: This is a well developed, well nourished patient who is awake, alert, rn and in no acute distress. Head/Face: Normocephalic, atraumatic. Cardiovascular: Regular rate and rhythm. No pulse deficits. Respiratory: No increased work of breathing, no retractions or nasal flaring. Abdomen/GI: Soft, non-tender Back: No spinal tenderness. No costovertebral tenderness. Full range of motion. MS/ Extremity: Pulses equal, no cyanosis. Neurovascular intact. Full, normal range of motion. Equal circumference. Vital Signs: 12:46 BP 149 / 113; Pulse 92; Resp 17; Temp 97.8; Pulse Ox 98% ; Weight 99.79 kg; Height 5 ap3 ft. 9 in. ; Pain 10/10; 13:00 BP 132 / 92; Pulse 80; Resp 17; Pulse Ox 96% on R/A; Pain 10/10; me1 13:52 Pain 7/10; me1 14:00 BP 135 / 93; Pulse 70; Resp 16; Pulse Ox 96% on R/A; me1 14:20 Pain 5/10; me1 14:20 Pain 5/10; me1 14:49 BP 154 / 94; Pulse 76; Resp 20; Pulse Ox 96% on R/A; me1 12:46 Body Mass Index 32.49 (99.79 kg, 175.26 cm) ap3 12:46 Pain Scale: Adult ap3 13:00 Pain Scale: Adult me1 13:52 Pain Scale: Adult me1 14:20 Pain Scale: Adult me1 14:20 Pain Scale: Adult me1 MDM: 12:40 Patient medically screened. rn 14:45 Differential diagnosis: nephrolithiasis, pyelonephritis, UTI, diverticulitis, rn pancreatitis. Data reviewed: vital signs, nurses notes, lab test result(s), radiologic studies, CT scan, and as a result, I will discharge patient. Counseling: I had a detailed discussion with the patient and/or guardian regarding the historical points, exam findings, and any diagnostic results supporting the discharge/admit diagnosis, lab results, radiology results, the need for outpatient follow up, to return to the emergency department if symptoms worsen or persist or if there are any questions or concerns that arise at home. Response to treatment: the patient's symptoms have markedly improved after treatment, and as a result, I will discharge patient. Special discussion: I discussed with the patient/guardian in detail that at this point there is no indication for admission to the hospital. It is understood, however, that if the symptoms persist or worsen the patient needs to return immediately for re-evaluation. ED course: No acute findings and CT/urine/blood work. Will discharge home with return precautions.. 14:47 ED course: I have personally reviewed all of the results, including but not limited to rn blood tests and imaging deemed necessary to safely discharge this patient at this time. All results given to and printed out for patient. I personally went over all the results with the patient and answered all questions. Patient will follow-up with PCP and or specialist as discussed. Return precautions given and understood.. 01/27 13:25 Order name: Urinalysis w/ reflexes; Complete Time: 13:46 EDNE 01/27 13:30 Order name: CBC with Automated Diff; Complete Time: 14:39 EDNE 01/27 14:25 Order name: Comprehensive Metabolic Panel; Complete Time: 14:39 EDNE 01/27 14:34 Order name: CBC Smear Scan; Complete Time: 14:39 EDNE 01/27 12:41 Order name: CT Stone Protocol rn 01/27 13:21 Order name: CT; Complete Time: 13:46 EDNE 01/27 12:41 Order name: IV Saline Lock; Complete Time: 13:20 rn 01/27 12:41 Order name: Labs collected and sent; Complete Time: 13:20 01/27 13:34 Order name: Labs - recollect needed; Complete Time: 13:43 mc5 Administered Medications: 13:20 Drug: Ondansetron IVP 4 mg IVP once; over 2 minutes Route: IVP; Site: right forearm; me1 13:52 Follow up: Response: No adverse reaction; Nausea is decreased me1 13:20 Drug: HYDROmorphone IVP 1 mg IVP once Route: IVP; Site: right forearm; me1 13:52 Follow up: Pain 7/10 Adult; Response: No adverse reaction; Pain is decreased me1 13:20 Drug: Magnesium Sulfate IVPB 1 grams IVPB once over 1 hrs Route: IVPB; Infused Over: 1 me1 hrs; Site: right forearm; 14:20 Follow up: Response: No adverse reaction; IV Status: Completed infusion; IV Intake: me1 100ml 13:21 Drug: Flomax PO 0.4 mg PO once Route: PO; me1 13:51 Follow up: Response: No adverse reaction me1 13:51 Drug: HYDROmorphone IVP 1 mg IVP once Route: IVP; Site: right forearm; me1 14:20 Follow up: Pain 5/10 Adult; Response: No adverse reaction; Pain is decreased me1 13:51 Drug: Ketorolac IVP 30 mg IVP once Route: IVP; Site: right forearm; me1 14:20 Follow up: Pain 5/10 Adult; Response: No adverse reaction; Pain is decreased me1 Disposition Summary: 01/28/24 14:47 Discharge Ordered Notes: Location: Home rn Problem: new rn Symptoms: have improved rn Condition: Stable rn Diagnosis - Calculus of kidney rn - Abdominal pain, unspecified rn Followup: rn - With: Private Physician - When: As needed - Reason: Recheck today's complaints, Re-evaluation by your physician Discharge Instructions: - Discharge Summary Sheet rn - Abdominal Pain, Adult rn - Flank Pain, Adult rn - Kidney Stones rn Forms: - Medication Reconciliation Form rn - Thank You Letter rn - Antibiotic print journalist - Prescription Opioid Use rn - Patient Portal Instructions rn - Leadership Thank You Letter rn Prescriptions: - Tramadol 50 mg Oral Tablet - take 1 tablet ORAL route every 8 hours as needed; 12 tablet; Refills: 0, rn Product Selection Permitted Signatures: Dispatcher [employer] Jimy Conway MD MD rn Prokisch, Amanda, RN RN ap3 Lila Edwards RN RN me1 Janice Mensah 5 Corrections: (The following items were deleted from the chart) 12:49 12:48 Allergies: Aspirin; ap3 ap3
--- NOTE | 2024-01-28 14:48 | ER ---
Nurse's Notes [facility] Name: Parker Miller Jr Age: 53 yrs Sex: Male : 1970 Arrival Date: 01/28/2024 Time: 12:34 Bed 14 Private MD: Diagnosis: Calculus of kidney;Abdominal pain, unspecified Presentation: 01/27 12:46 Chief complaint: Patient states: he has been having right sided flank pain for approx ap3 one week. patient currently rates his pain as a 10/10 on the pain scale. Coronavirus screen: At this time, the client does not indicate any symptoms associated with coronavirus-19. Ebola Screen: No symptoms or risks identified at this time. Initial Sepsis Screen: Does the patient meet any 2 criteria? HR > 90 bpm. Does the patient have a suspected source of infection? No. Patient's initial sepsis screen is negative. Risk Assessment: Do you want to hurt yourself or someone else? Patient reports no desire to harm self or others. Onset of symptoms was January 21, 2024. 12:46 Method Of Arrival: Ambulatory ap3 12:46 Acuity: LAKEISHA 3 ap3 Triage Assessment: 12:49 General: Appears uncomfortable, Behavior is calm, cooperative, appropriate for age. ap3 Pain: Complains of pain in anterior aspect of right lateral abdomen and posterior aspect of right lateral abdomen Pain currently is 10 out of 10 on a pain scale. Pain began gradually. Neuro: Level of Consciousness is awake, alert, obeys commands, Oriented to person, place, time, situation. Cardiovascular: Patient's skin is warm and dry. Respiratory: Airway is patent Respiratory effort is even, unlabored, Respiratory pattern is regular, symmetrical. : Reports pain in right flank(s). Historical: - Allergies: 12:48 No Known Allergies; ap3 - Home Meds: 12:48 None [Active]; ap3 - PMHx: 12:48 Kidney stones; neuropathy; Diabetes - NIDDM; ap3 - PSHx: 12:48 None; ap3 - Immunization history:: Client reports receiving the 2nd dose of the Covid vaccine. - Social history:: Smoking status: Patient reports the use of cigarette tobacco products, smokes 1.5 packs per day. - Family history:: not pertinent. - Hospitalizations: : No recent hospitalization is reported. Screenin:50 Abuse screen: Denies threats or abuse. Nutritional screening: No deficits noted. ap3 Tuberculosis screening: No symptoms or risk factors identified. 13:22 [facility] ED Fall Risk Assessment (Adult) History of falling in the last 3 months, me1 including since admission No falls in past 3 months (0 pts). Assessment: 13:22 General: Appears uncomfortable, well groomed, well developed, well nourished, Behavior me1 is calm, cooperative, appropriate for age, Reports right flank pain that radiates to right lower back 10/10 for about a week. Started feeling nauseated today. Pain: Complains of pain in anterior aspect of right lateral abdomen Pain radiates to posterior aspect of right lateral abdomen Pain currently is 10 out of 10 on a pain scale. Quality of pain is described as sharp, shooting, Pain began about a week ago Is continuous. Neuro: Level of Consciousness is awake, alert, obeys commands, Oriented to person, place, time, situation, Appropriate for age. Cardiovascular: Capillary refill < 3 seconds Patient's skin is warm and dry. Respiratory: Airway is patent Trachea midline Respiratory effort is even, unlabored, Respiratory pattern is regular, symmetrical. : Reports pain in right flank(s), in lower back. Vital Signs: 12:46 BP 149 / 113; Pulse 92; Resp 17; Temp 97.8; Pulse Ox 98% ; Weight 99.79 kg; Height 5 ap3 ft. 9 in. ; Pain 10/10; 13:00 BP 132 / 92; Pulse 80; Resp 17; Pulse Ox 96% on R/A; Pain 10/10; me1 13:52 Pain 7/10; me1 14:00 BP 135 / 93; Pulse 70; Resp 16; Pulse Ox 96% on R/A; me1 14:20 Pain 5/10; me1 14:20 Pain 5/10; me1 14:49 BP 154 / 94; Pulse 76; Resp 20; Pulse Ox 96% on R/A; me1 12:46 Body Mass Index 32.49 (99.79 kg, 175.26 cm) ap3 12:46 Pain Scale: Adult ap3 13:00 Pain Scale: Adult me1 13:52 Pain Scale: Adult me1 14:20 Pain Scale: Adult me1 14:20 Pain Scale: Adult me1 ED Course: 12:37 Patient arrived in ED. mg5 12:40 Jimy Escobedo MD is Attending Physician. rn 12:48 Triage completed. ap3 12:50 Arm band placed on left wrist. ap3 12:57 Lila Edwards, ANALY is Primary Nurse. me1 13:20 Initial lab(s) drawn, by me, sent to lab. Urine collected: clean catch specimen, me1 cloudy. Inserted saline lock: 22 gauge in right forearm, using aseptic technique. 13:22 Patient has correct armband on for positive identification. Bed in low position. Call me1 light in reach. Side rails up X 1. Provided Education on: POC. Verbalized understanding. . 13:22 Client placed on continuous cardiac and pulse oximetry monitoring. NIBP monitoring me1 applied. Pulse ox on. NIBP on. 13:22 No provider procedures requiring assistance completed. me1 15:05 IV discontinued, intact, bleeding controlled, No redness/swelling at site. Pressure me1 dressing applied. Administered Medications: 13:20 Drug: Ondansetron IVP 4 mg IVP once; over 2 minutes Route: IVP; Site: right forearm; me1 13:52 Follow up: Response: No adverse reaction; Nausea is decreased me1 13:20 Drug: HYDROmorphone IVP 1 mg IVP once Route: IVP; Site: right forearm; me1 13:52 Follow up: Pain 7/10 Adult; Response: No adverse reaction; Pain is decreased me1 13:20 Drug: Magnesium Sulfate IVPB 1 grams IVPB once over 1 hrs Route: IVPB; Infused Over: 1 me1 hrs; Site: right forearm; 14:20 Follow up: Response: No adverse reaction; IV Status: Completed infusion; IV Intake: me1 100ml 13:21 Drug: Flomax PO 0.4 mg PO once Route: PO; me1 13:51 Follow up: Response: No adverse reaction me1 13:51 Drug: HYDROmorphone IVP 1 mg IVP once Route: IVP; Site: right forearm; me1 14:20 Follow up: Pain 5/10 Adult; Response: No adverse reaction; Pain is decreased me1 13:51 Drug: Ketorolac IVP 30 mg IVP once Route: IVP; Site: right forearm; me1 14:20 Follow up: Pain 5/10 Adult; Response: No adverse reaction; Pain is decreased me1 Medication: 13:22 VIS not applicable for this client. me1 Intake: 14:20 IV: 100ml; Total: 100ml. me1 Outcome: 14:47 Discharge ordered by . rn 15:05 Discharged to home ambulatory, me1 15:05 Condition: stable 15:05 Discharge instructions given to patient, Instructed on discharge instructions, follow up and referral plans. medication usage, Demonstrated understanding of instructions, follow-up care, medications, Prescriptions given X 1, 15:06 Patient left the ED. me1 Signatures: Jimy Escobedo MD MD rn Prokisch, Amanda, RN RN ap3 Lila Edwards RN RN me1 Priyanka Nicholson mg5 Corrections: (The following items were deleted from the chart) 12:49 12:48 Allergies: Aspirin; ap3 ap3
[2024-01-28 15:51] VITALS: BP 135/93; TEMP 97.8; O2SAT 96
== END ==
LOC: ER 12:34
DX: N20.0 Calculus of kidney (principal); Z87.442 Personal history of urinary calculi; F17.210 Nicotine dependence, cigarettes, uncomplicated
CPT/HCPCS: 85025; 81001; 36415; 80053; 76377; 74176; J3475; J1170 ×2; J2405

== ENCOUNTER 2024-09-20 06:44 | Inpatient (IN) | payer OTHER ==
[2024-09-20 07:02] LABS: Absolute Basophils 0.1 K/uL (0-0.5); Absolute Eosinophils 0.2 K/uL (0-0.5); Absolute Lymphocytes (CBC) 1.9 K/uL (0.7-4.9); Absolute Monocytes 0.5 K/uL (0.1-1.3); Absolute Neutrophil 4.8 K/uL (1.8-8.0); Basophils % 1.1 % (0-1.3); Eosinophils % 2.8 % (0-4.4); Hematocrit 49.5 % (39.6-49.0); Hemoglobin 17.3 g/dL (13.6-17.9); Lymphocytes % 25.7 % (15.3-44.8); MCH 33.3 pg (27.0-35.0); MCV 95.2 fL (80-100); MPV 9.9 fL (7.6-11.3); Monocytes % 6.3 % (3.3-12.3); Neutrophils % 64.1 % (41.7-73.7); Nucleated Red Blood Cells % 0.1 % (0-0); Platelets 163 thou/uL (152-406); Red Cell Distribution Width 12.7 % (12.1-15.2)
[2024-09-20] MEDS ORDERED: ONDANSETRON 4 MG/2 ML VIAL ONE (07:38)
[2024-09-20] MEDS ORDERED: KETOROLAC 30 MG/ML INJ ONE (07:38)
[2024-09-20 08:06] LABS: Anion Gap 12.1 mEq/L (5.0-15.0); Potassium 4.1 mEq/L (3.5-5.1); Troponin High Sensitivity 10.2 pg/mL (<58.9)
[2024-09-20] MEDS ORDERED: MORPHINE 4 MG/ML SYR ONE (08:40)
--- NOTE | 2024-09-20 08:47 | RAD REPORT ---
EXAMINATION: ONE VIEW CHEST XR CLINICAL INDICATION: Male, 54 years old.CHEST PAIN TECHNIQUE: 1 View, AP supine, X-ray of the chest was performed. [id number]. COMPARISON: No prior exam. FINDINGS: Lungs and pleura: Clear lungs. No effusion. Heart and mediastinum: Normal heart size. Unremarkable mediastinal contours. Osseous structures: No acute abnormality. Tubes/lines: None Other: None. IMPRESSION: No acute intrathoracic abnormality.
[2024-09-20] MEDS ORDERED: ASPIRIN 81 MG CHEWABLE TABLET ONE (10:45)
--- NOTE | 2024-09-20 11:01 | EDPHYS ---
Physician Documentation [facility] Name: Parker Miller Jr Age: 54 yrs Sex: Male : 1970 Arrival Date: 09/20/2024 Time: 06:44 Bed 13 Private MD: ED Physician Wen Fitzpatrick HPI: 09/20 07:32 This 54 yrs old Male presents to ER via EMS with complaints of Chest Pain. sp3 07:32 54-year-old male with history of diabetes, kidney stones now presents with substernal sp3 chest pain that started approximately 5 AM today. Patient states that he was just waking up from sleep when the pain started. It feels like a crushing pain" without headache, fever, other URI symptoms, cough, shortness of breath, back pain, flank pain, abdominal pain, nausea, vomiting, diarrhea, trauma, known sick contacts, travel history, prolonged immobilization, prior DVT or PE, or any other signs or symptoms on ROS at this time. He is currently resting comfortably in no acute distress. Patient states that the pain is still mildly there.. Historical: - Allergies: 06:48 No Known Allergies; iw - PMHx: 06:48 Diabetes - NIDDM; Kidney stones; neuropathy; iw - Immunization history:: Adult Immunizations not up to date. - Infectious Disease History:: Denies. - Social history:: Smoking status: Patient reports the use of cigarette tobacco products, smokes two packs cigarettes per day. ROS: 07:33 Constitutional: Negative for fever, chills, and weight loss, Eyes: Negative for injury, sp3 pain, redness, and discharge, ENT: Negative for injury, pain, and discharge, Neck: Negative for injury, pain, and swelling, Respiratory: Negative for shortness of breath, cough, wheezing, and pleuritic chest pain, Abdomen/GI: Negative for abdominal pain, nausea, vomiting, diarrhea, and constipation, Back: Negative for injury and pain, MS/Extremity: Negative for injury and deformity, Skin: Negative for injury, rash, and discoloration, Neuro: Negative for headache, weakness, numbness, tingling, and seizure, Psych: Negative for depression, anxiety, suicide ideation, homicidal ideation, and hallucinations, Allergy/Immunology: Negative for hives, rash, and allergies, Endocrine: Negative for neck swelling, polydipsia, polyuria, polyphagia, and marked weight changes, Hematologic/Lymphatic: Negative for swollen nodes, abnormal bleeding, and unusual bruising, 07:33 All other systems are negative, sp3 Exam: 07:33 Constitutional: This is a well developed, well nourished patient who is awake, alert, sp3 and in no acute distress. Head/Face: Normocephalic, atraumatic. Eyes: Pupils equal round and reactive to light, extra-ocular motions intact. Lids and lashes normal. Conjunctiva and sclera are non-icteric and not injected. Cornea within normal limits. Periorbital areas with no swelling, redness, or edema. ENT: Nares patent. No nasal discharge, no septal abnormalities noted. External auditory canals are clear. Oropharynx with no redness, swelling, or masses, exudates, or evidence of obstruction, uvula midline. Mucous membranes moist. Neck: Trachea midline, no thyromegaly or masses palpated, and no cervical lymphadenopathy. Supple, full range of motion without nuchal rigidity, or vertebral point tenderness. No Meningismus. Chest/axilla: Normal chest wall appearance and motion. Nontender with no deformity. No lesions are appreciated. Cardiovascular: Regular rate and rhythm with a normal S1 and S2. No gallops, murmurs, or rubs. Normal PMI, no JVD. No pulse deficits. Respiratory: Lungs have equal breath sounds bilaterally, clear to auscultation and percussion. No rales, rhonchi or wheezes noted. No increased work of breathing, no retractions or nasal flaring. Abdomen/GI: Soft, non-tender, with normal bowel sounds. No distension or tympany. No guarding or rebound. No evidence of tenderness throughout. Back: No spinal tenderness. No costovertebral tenderness. Full range of motion. Skin: Warm, dry with normal turgor. Normal color with no rashes, no lesions, and no evidence of cellulitis. MS/ Extremity: Pulses equal, no cyanosis. Neurovascular intact. Full, normal range of motion. Neuro: Awake and alert, GCS 15, oriented to person, place, time, and situation. Cranial nerves II-XII grossly intact. Motor strength 5/5 in all extremities. Sensory grossly intact. Cerebellar exam normal. Normal gait. Psych: Awake, alert, with orientation to person, place and time. Behavior, mood, and affect are within normal limits. 07:33 ECG was reviewed by the Attending Physician. EKG demonstrates normal sinus rhythm at 65 bpm with normal intervals, normal QRS, normal axis, normal ST/T-segment's without any evidence of acute ischemia. Normal EKG noted. Vital Signs: 06:49 BP 157 / 100; Pulse 75; Resp 18; Temp 97.6(TE); Pulse Ox 99% on R/A; Weight 102.06 kg; iw Height 5 ft. 9 in. ; Pain 8/10; 07:58 BP 162 / 90; Pulse 87; Resp 18; Pulse Ox 100% on R/A; mb9 09:21 BP 147 / 95; Pulse 85; Resp 18; Pulse Ox 98% ; mb9 11:01 BP 150 / 93; Pulse 77; Resp 18; Pulse Ox 100% on R/A; mb9 12:09 BP 149 / 96; Pulse 81; Resp 16; Pulse Ox 100% on R/A; mb9 06:49 Body Mass Index 33.23 (102.06 kg, 175.26 cm) iw 06:49 Pain Scale: Adult iw MDM: 07:06 Medical Screening Exam initiated sp3 07:34 Data reviewed: vital signs, nurses notes, lab test result(s), EKG, radiologic studies. sp3 ED course: 54-year-old male with PMH above now with chest pain with no EKG changes. Differential diagnosis includes gastritis, noncardiac chest pain, MSK chest pain, and to a lesser degree acute coronary syndrome or other pulmonary pathology. Also clinically not highly suspicious for aortic dissection. Will obtain general labs, chest x-ray dad onto the normal EKG. 2-hour troponin will also be added on to give this 2 sets in this patient with probable low heart scale score. Disposition pending workup and patient course.. 10:52 ED course: Second troponin greater than 600. Patient is willing and with repeat EKG sp3 pending. I am messaging with cardiology regarding further plan. Patient will be admitted to internal medicine.. 10:59 ED course: Discussed with cardiology who wants to start heparin drip since pain is sp3 controlled. Repeat EKG demonstrates normal sinus rhythm with no ST changes. Patient admitted to internal medicine.. 09/20 06:52 Order name: Basic Metabolic Panel; Complete Time: 08:46 iw 11/03 06:52 Order name: CBC with Diff; Complete Time: 08:07 iw 09/20 06:52 Order name: Troponin HS; Complete Time: 08:46 iw 09/20 07:36 Order name: Troponin High Sensitivity: Draw 2 hours after first; Complete Time: 10:46 sp3 09/20 11:03 Order name: Ptt, Activated; Complete Time: 11:36 mb9 09/20 11:03 Order name: PT-INR; Complete Time: 11:36 mb9 09/20 11:45 Order name: Urinalysis w/ reflexes EDMS 09/20 11:45 Order name: Basic Metabolic Panel EDMS 09/20 11:45 Order name: Basic Metabolic Panel EDMS 09/20 11:45 Order name: Basic Metabolic Panel EDMS 09/20 11:45 Order name: Basic Metabolic Panel EDMS 09/20 11:45 Order name: CBC with Automated Diff EDMS 09/20 11:45 Order name: CBC with Automated Diff EDMS 09/20 11:45 Order name: CBC with Automated Diff EDMS 09/20 11:45 Order name: CBC with Automated Diff EDMS 09/20 11:45 Order name: Lipid Profile EDMS 09/20 11:45 Order name: Lipid Profile EDMS 09/20 11:45 Order name: Magnesium EDMS 09/20 11:45 Order name: Magnesium EDMS 09/20 11:45 Order name: Magnesium EDMS 09/20 11:45 Order name: Magnesium EDMS 09/20 11:45 Order name: NT PRO-BNP EDMS 09/20 11:45 Order name: NT PRO-BNP EDMS 09/20 11:45 Order name: NT PRO-BNP EDMS 09/20 11:45 Order name: NT PRO-BNP EDMS 09/20 11:45 Order name: Troponin High Sensitivity EDMS 09/20 11:45 Order name: Troponin High Sensitivity EDMS 09/20 11:45 Order name: Troponin High Sensitivity EDMS 09/20 11:45 Order name: Troponin High Sensitivity EDMS 09/20 11:45 Order name: Troponin High Sensitivity EDMS 09/20 11:45 Order name: Troponin High Sensitivity EDMS 09/20 11:45 Order name: Troponin High Sensitivity EDMS 09/20 11:45 Order name: Troponin High Sensitivity EDMS 09/20 06:52 Order name: XRAY Chest (1 view); Complete Time: 09:00 iw 09/20 11:49 Order name: Echo with Doppler EDMS 09/20 11:45 Order name: CONS Physician Consult EDMS 09/20 11:45 Order name: EKG Electrocardiogram EDMS 09/20 11:45 Order name: EKG Electrocardiogram EDMS 09/20 06:52 Order name: Cardiac monitoring; Complete Time: 06:55 iw 09/20 06:52 Order name: EKG - Nurse/Tech; Complete Time: 06:55 iw 09/20 06:52 Order name: IV Saline Lock; Complete Time: 06:55 iw 09/20 06:52 Order name: Labs collected and sent; Complete Time: 06:55 iw 09/20 06:52 Order name: O2 Per Protocol; Complete Time: 06:55 iw 09/20 06:52 Order name: O2 Sat Monitoring; Complete Time: 06:55 iw 09/20 07:25 Order name: Labs - recollect needed: recollect chemistries/ hemolyzed per Cathie eb Complete Time: 07:45 09/20 10:45 Order name: NPO; Complete Time: 10:47 sp3 09/20 10:49 Order name: EKG - Nurse/Tech; Complete Time: 10:55 iw Administered Medications: 07:46 Drug: Ondansetron IVP 4 mg IVP once; over 2 minutes Route: IVP; Site: left antecubital; hb 08:30 Follow up: Response: No adverse reaction mb9 07:46 Drug: Ketorolac IVP 15 mg IVP once Route: IVP; Site: left antecubital; hb 08:30 Follow up: Response: No adverse reaction mb9 08:46 Drug: morphine IVP or IV 4 mg IVP once over 4 mins Route: IVP; Infused Over: 4 mins; mb9 Site: left forearm; 12:44 Follow up: Response: No adverse reaction mb9 10:55 Drug: Aspirin PO 325 mg PO once Route: PO; mb9 12:43 Follow up: Response: No adverse reaction mb9 11:03 Drug: Heparin (NH-Bolus No thrombolytic) - HEParin IVP 60 units/kg IVP once; Max 5000 iw units {Co-Signature: mb9 (Roberta Rodriguez RN).} Route: IVP; Site: right forearm; 12:43 Follow up: Response: No adverse reaction mb9 11:05 Drug: Heparin (NH Drip) 12 units/kg/[place] - ([place] [address] units, D5W IV 500 ml) IV at iw calculated rate Per protocol; Max initial rate 1000 units/hr {Co-Signature: estela (Roberta Rodriguez RN).} Route: IV; Rate: calculated rate; Site: right forearm; 12:43 Follow up: Response: No adverse reaction; IV Status: Infusion continued upon admission mb9 Disposition: 11:00 Critical Care:. sp3 Disposition Summary: 09/20/24 11:01 Hospitalization Ordered Notes: Hospitalization Status: Inpatient Admission sp3 Provider: Heladio Lal3 Location: Intensive Care Unit sp3 Condition: Stable sp3 Problem: new sp3 Symptoms: have worsened sp3 Bed/Room Type: Standard sp3 Room Assignment: 2-(09/20/24 12:15) eb Diagnosis - NSTEMI, Chest Pain sp3 Forms: - Medication Reconciliation Form sp3 - SBAR form sp3 - Leadership Thank You Letter sp3 Critical care time excluding procedures: 11:00 Critical care time: Bedside Care: 15 minutes, Consultation: 10 minutes, Family sp3 Intervention: 5 minutes. Total time: 30 minutes Signatures: Dispatcher [employer] EDMarixa Ramirez RN RN iw Baxter, Heather, RN RN hb Botello, Elizabeth eb Patel, Setul, MD MD sp3 Roberta Rodriguez RN RN mb9 Roberta Rodriguez RN mb9 Corrections: (The following items were deleted from the chart) 06:53 06:53 BASIC METABOLIC PANEL+C.LAB.BRZ ordered. EDMS EDMS 06:53 06:53 CBC+H.LAB.BRZ ordered. EDMS EDMS 06:53 06:53 Troponin High Sensitivity+C.LAB.BRZ ordered. EDMS EDMS 06:53 06:53 Chest Single View+RAD.RAD.BRZ ordered. EDMS EDMS 12:15 11:01 sp3 eb
--- NOTE | 2024-09-20 11:01 | ER ---
Nurse's Notes [facility] Name: Parker Miller Jr Age: 54 yrs Sex: Male : 1970 Arrival Date: 09/20/2024 Time: 06:44 Bed 13 Private MD: Diagnosis: NSTEMI, Chest Pain Presentation: 09/20 06:47 Chief complaint: Patient states: chest pain X 1 hour, crushing, sharp pain radiating to iw left arm. Coronavirus screen: At this time, the client does not indicate any symptoms associated with coronavirus-19. Ebola Screen: No symptoms or risks identified at this time. Initial Sepsis Screen: Does the patient meet any 2 criteria? No. Patient's initial sepsis screen is negative. Does the patient have a suspected source of infection? No. Patient's initial sepsis screen is negative. Risk Assessment: Do you want to hurt yourself or someone else? Patient reports no desire to harm self or others. Onset of symptoms was September 20, 2024. 06:47 Method Of Arrival: EMS: [facility] iw 06:47 Acuity: [place] 3 iw 06:49 Care prior to arrival: Medication(s) given: ASA, 81 mg, x 4. iw 06:52 Care prior to arrival: IV initiated. 20 GA, in the left antecubital area. iw Historical: - Allergies: 06:48 No Known Allergies; iw - PMHx: 06:48 Diabetes - NIDDM; Kidney stones; neuropathy; iw - Immunization history:: Adult Immunizations not up to date. - Infectious Disease History:: Denies. - Social history:: Smoking status: Patient reports the use of cigarette tobacco products, smokes two packs cigarettes per day. Screenin:[facility] ED Fall Risk Assessment (Adult) History of falling in the last 3 months, iw including since admission No falls in past 3 months (0 pts) Confusion or Disorientation No (0 pts) Intoxicated or Sedated No (0 pts) Impaired Gait No (0 pts) Mobility Assist Device Used No (0 pt) Altered Elimination No (0 pt) Score/Fall Risk Level 0 - 2 = Low Risk Oriented to surroundings, Maintained a safe environment. Abuse screen: Denies threats or abuse. Denies injuries from another. Nutritional screening: No deficits noted. Tuberculosis screening: No symptoms or risk factors identified. Assessment: 06:49 General: Appears in no apparent distress. Behavior is calm, cooperative. Pain: iw Complains of pain in chest Pain radiates to left arm Pain currently is 8 out of 10 on a pain scale. Quality of pain is described as crushing, Pain began 1 hour ago. Is continuous. Neuro: Level of Consciousness is awake, alert, obeys commands, Oriented to person, place, time, situation, Moves all extremities. Cardiovascular: Reports chest pain, Patient's skin is warm and dry. Respiratory: Respiratory effort is even, unlabored, Respiratory pattern is regular. GI: Abdomen is non-distended. Derm: Skin is intact, is healthy with good turgor. Musculoskeletal: Range of motion: intact in all extremities. 07:22 General: Appears uncomfortable, Behavior is cooperative, anxious. Cardiovascular: Heart mb9 tones S1 S2 present Patient's skin is warm and dry. Respiratory: Airway is patent Respiratory effort is even, unlabored, Respiratory pattern is regular, symmetrical. GI: Abdomen is round non-distended, Bowel sounds present X 4 quads. : No signs and/or symptoms were reported regarding the genitourinary system. EENT: No signs and/or symptoms were reported regarding the EENT system. Derm: Skin is pink, warm \T\ dry. Musculoskeletal: Range of motion: intact in all extremities. 08:34 Reassessment: No changes from previously documented assessment. Patient and/or family mb9 updated on plan of care and expected duration. Pain level reassessed. Patient is alert, oriented x 3, equal unlabored respirations, skin warm/dry/pink. Patient states symptoms have not improved. 10:07 Reassessment: No changes from previously documented assessment. Patient and/or family mb9 updated on plan of care and expected duration. Pain level reassessed. Patient is alert, oriented x 3, equal unlabored respirations, skin warm/dry/pink. 12:09 Reassessment: No changes from previously documented assessment. Patient and/or family mb9 updated on plan of care and expected duration. Pain level reassessed. Patient is alert, oriented x 3, equal unlabored respirations, skin warm/dry/pink. Vital Signs: 06:49 BP 157 / 100; Pulse 75; Resp 18; Temp 97.6(TE); Pulse Ox 99% on R/A; Weight 102.06 kg; iw Height 5 ft. 9 in. ; Pain 8/10; 07:58 BP 162 / 90; Pulse 87; Resp 18; Pulse Ox 100% on R/A; mb9 09:21 BP 147 / 95; Pulse 85; Resp 18; Pulse Ox 98% ; mb9 11:01 BP 150 / 93; Pulse 77; Resp 18; Pulse Ox 100% on R/A; mb9 12:09 BP 149 / 96; Pulse 81; Resp 16; Pulse Ox 100% on R/A; mb9 06:49 Body Mass Index 33.23 (102.06 kg, 175.26 cm) iw 06:49 Pain Scale: Adult iw ED Course: 06:46 Patient arrived in ED. iw 06:48 Triage completed. iw 06:49 Arm band placed on. iw 06:49 EKG done, by equipment tech. af3 07:06 Wen Fitzpatrick MD is Attending Physician. sp3 07:14 Roberta Rodriguez RN is Primary Nurse. mb9 07:14 Placed in gown. Bed in low position. Call light in reach. Side rails up X 1. Provided mb9 Education on: press call light if needing anything. Client placed on continuous cardiac and pulse oximetry monitoring. NIBP monitoring applied. supervisor international reservations on. 07:23 No provider procedures requiring assistance completed. mb9 07:23 Maintain EMS IV. Dressing intact. Good blood return noted. Site clean \T\ dry. Gauge \T\ mb 9 site: 20g left AC. Flushed with 10 mL NS. 08:02 Patient requests pain medication. mb9 08:32 XRAY Chest (1 view) In Process Unspecified. EDMS 08:43 Patient requests pain medication. iw 11:00 Heladio Lal is Hospitalizing Provider. sp3 12:30 Patient admitted, IV remains in place. mb9 Administered Medications: 07:46 Drug: Ondansetron IVP 4 mg IVP once; over 2 minutes Route: IVP; Site: left antecubital; hb 08:30 Follow up: Response: No adverse reaction mb9 07:46 Drug: Ketorolac IVP 15 mg IVP once Route: IVP; Site: left antecubital; hb 08:30 Follow up: Response: No adverse reaction mb9 08:46 Drug: morphine IVP or IV 4 mg IVP once over 4 mins Route: IVP; Infused Over: 4 mins; mb9 Site: left forearm; 12:44 Follow up: Response: No adverse reaction mb9 10:55 Drug: Aspirin PO 325 mg PO once Route: PO; mb9 12:43 Follow up: Response: No adverse reaction mb9 11:03 Drug: Heparin (MS-Bolus No thrombolytic) - HEParin IVP 60 units/kg IVP once; Max 5000 iw units {Co-Signature: estela (Roberta Rodriguez RN).} Route: IVP; Site: right forearm; 12:43 Follow up: Response: No adverse reaction mb9 11:05 Drug: Heparin (MS Drip) 12 units/kg/[place] - ([place] [address] units, D5W IV 500 ml) IV at iw calculated rate Per protocol; Max initial rate 1000 units/hr {Co-Signature: estela (Roberta Rodriguez RN).} Route: IV; Rate: calculated rate; Site: right forearm; 12:43 Follow up: Response: No adverse reaction; IV Status: Infusion continued upon admission mbSol Medication: 06:50 VIS not applicable for this client. iw Outcome: 11:01 Decision to Hospitalize by Provider. sp3 12:30 Admitted to ICU accompanied by nurse, via stretcher, room 2, Report called to estela Everett RN 12:30 Condition: stable 12:30 Instructed on the need for admit, 13:04 Patient left the ED. estela Signatures: Dispatcher [employer] Marixa French RN RN Paige Goins RN RN hb Patel, Setul, MD MD sp3 Roberta Rodriguez RN RN mb9 Fry, Ashley Roberta Peguero RN Corrections: (The following items were deleted from the chart) 07:12 06:49 BP 157 / 100; Pulse 75bpm; Resp 18bpm; Pulse Ox 99% RA; 102.06 kg; Height 5 ft. 9 iw in.; BMI: 33.2; Pain 8/10, Adult; iw
[2024-09-20] MEDS ORDERED: HEPARIN 5000 UNIT/ML 1 ML VIAL ONE (11:07)
[2024-09-20] MEDS ORDERED: HEPARIN/D5W 25,000 UNIT/500 ML BAG IV ONE (11:08)
[2024-09-20 11:27] LABS: PT Prothrombin Time 11.7 SECONDS (9.4-12.5); Protime INR 1.05
--- NOTE | 2024-09-20 11:39 | P.HP ---
Certification for Inpatient Patient admitted to: Inpatient Patient will require the following post-hospital care: None Practitioner: I am a practitioner with admitting privileges, knowledge of patient current condition, hospital course, and medical plan of care. Services: Services provided to patient in accordance with Admission requirements found in Title 42 Section 412.3 of the Code of Federal Regulations <Julissa Nava - Last Filed: 09/20/24 12:34> Patient History Date of Service: 09/20/24 Reason for admission: NTSEMI History of Present Illness: 54 yrs old Male with a past medical history of diabetes, kidney stones, neuropathy, tobacco use, presents to the emergency room with chest pain. He reports chest pain started prior to arrival, 8 out of 10, partially relieved with as needed analgesics, current chest pain 6 out of 10, he reports radiates to his left arm, he denies shortness of breath, cough, abdominal pain, nausea vomiting diarrhea. He reports not taking any medications for hypertension, he denies history of [place], he reports smoking 1 pack a day, no reported use of EtOH, no reported use of illicit substance abuse. He reports not having a primary care doctor, not taking medications for diabetes, ER evaluation normal sinus rhythm at 65 bpm with normal intervals, normal QRS, normal axis, normal ST/T- segment's without any evidence of acute ischemia. BP 162 / 90; Pulse 87; Resp 18; Pulse Ox 100% on R/A; initial troponin 10.2, repeat troponin 655.6, started on a heparin drip in the emergency room., Blood glucose 286, repeat 412, CBC unremarkable, chest x-ray, no acute abnormality. Plan to admit for chest pain rule out [place], NSTEMI, - Past Medical/Surgical History -: [id number] diabetes Past Surgical History: Patient denies surgical history - Social History Smoking Status: Current every day smoker Alcohol use: No Caffeine use: Yes Place of Residence: Home <Julissa Nava - Last Filed: 09/20/24 12:34> Date of Service: 09/21/24 <Dick Laboy - Last Filed: 09/21/24 14:19> Allergies aspirin Allergy (Verified 10/29/17 13:45) Unknown Home Medications: NK [No Home Meds] 09/20/24 Review of Systems 10-point ROS is otherwise unremarkable General: As per HPI <Julissa Nava - Last Filed: 09/20/24 12:34> Physical Examination - Physical Exam General: Oriented x3, Mild distress HEENT: Atraumatic, Normocephalic Neck: Supple, 2+ carotid pulse no bruit Respiratory: Clear to auscultation bilaterally, Normal air movement Cardiovascular: Regular rate/rhythm, Normal S1 S2 Capillary refill: <2 Seconds Gastrointestinal: Normal bowel sounds, Soft and benign Musculoskeletal: No swelling, No tenderness Integumentary: No breakdown Neurological: Normal speech, Normal strength at 5/5 x4 extr, Cranial nerves 3-12 intact - Studies Laboratory Data (last 24 hrs) 09/20/24 09/20/24 09/20/24 11:09 07:43 06:55 WBC 7.50 Hgb 17.3 Hct 49.5 H Plt Count 163 PT 11.7 INR 1.05 APTT 32.0 Sodium 132 L Potassium 4.1 BUN 18 Creatinine 1.00 Glucose 412 H* <Julissa Nava - Last Filed: 09/20/24 12:34> Assessment and Plan - Problems (Diagnosis) (1) NSTEMI (non-ST elevated myocardial infarction) Current Visit: Yes Status: Acute (2) Chest pain Current Visit: Yes Status: Acute Qualifiers: Chest pain type: unspecified Qualified Code(s): R07.9 - Chest pain, unspecified (3) Uncontrolled diabetes mellitus with hyperglycemia Current Visit: Yes Status: Acute (4) Peripheral neuropathy Current Visit: Yes Status: Acute (5) Tobacco use Current Visit: Yes Status: Acute (6) Uncontrolled hypertension Current Visit: Yes Status: Acute - Plan Admit to ICU, for NSTEMI Cardiology consult, telemetry, Trend troponin, n.p.o. after midnight Echo ordered for the a.m. Heparin drip, nitro, as needed analgesic, antiemetics, antilipid, metoprolol, O2 2 L keep sats greater than 92% Tobacco use, educated on tobacco cessation Nicotine patch Accu-Cheks, sliding scale insulin, A1c in the a.m., Discharge Plan: Home - Advance Directives Does patient have a Living Will: No Does patient have a Durable POA for Healthcare: No - Code Status/Comfort Care Code Status: Full Code Critical Care: Yes Time Spent Managing Pts Care (In Minutes): 55 <Julissa Nava - Last Filed: 09/20/24 12:34> Date of Service: 09/21/24 Patient was seen and examined. Events of the last 24 hours have been noted. Spoke with with FAMILIA regarding patient's clinical picture after evaluating and examining the patient independently. I performed a substantial part of the MDM during this patient's care today. I personally made or approved the documented management plan and acknowledge its risk of complications. I agree with the findings and documentation provided in the FAMILIA's notes. <Dick Laboy - Last Filed: 09/21/24 14:19>
[2024-09-20] MEDS ORDERED: NITROGLYCERIN 0.4 MG/TAB SL PRN (11:44)
[2024-09-20] MEDS ORDERED: NICOTINE 14 MG/PAT TD SCH (13:00)
[2024-09-20 13:12] VITALS: BMI 33.1
[2024-09-20] MEDS: INSULIN REGULAR (HUMAN) 100 UNIT/ML SQ ONE (13:26)
[2024-09-20] MEDS: NITROGLYCERIN 1 GM PKT TD SCH (13:26)
[2024-09-20] MEDS: MORPHINE 4 MG/ML SYR IV PRN (13:26)
[2024-09-20] MEDS: ACETAMINOPHEN 500 MG TAB PO PRN (14:31)
[2024-09-20] MEDS: ONDANSETRON 4 MG/2 ML VIAL IV PRN (14:31)
[2024-09-20] MEDS: INSULIN REGULAR (HUMAN) 100 UNIT/ML SQ SCH (16:56)
[2024-09-20] MEDS: METOPROLOL TAR 50 MG TAB PO SCH (20:49)
[2024-09-20] MEDS: ATORVASTATIN 20 MG TAB PO SCH (20:49)
[2024-09-20] MEDS: NITROGLYCERIN/D5W 50 MG/250 ML BTL IV SCH (21:26)
--- NOTE | 2024-09-20 21:37 | P.PN ---
Date of Service: 09/20/24 Notified by bedside ICU nurse around 2100 hrs. that patient's troponin returned elevated compared to initial troponin drawn earlier today. Per cardiology, decision was made to transfer the patient tonight for emergent heart catheterization. However, the patient does not want to be transferred at this time. He states he has a sick , and prefers to be close by. I informed the patient of the need for transfer, and discussed risk and benefits of being transferred. Patient does not want to be transferred. I discussed with Dr. Johns, electric plater, the patient's wishes. Dr. Johns stated the patient does not have to be transferred at this time. He recommends keeping the patient n.p.o., and making the patient first case for early a.m. heart catheterization. Discussed case also with Dr. Laboy. <Saba Berman - Last Filed: 09/20/24 21:30> Patient was seen and examined. Events of the last 24 hours have been noted. Spoke with with FAMILIA regarding patient's clinical picture after evaluating and examining the patient independently. I performed a substantial part of the MDM during this patient's care today. I personally made or approved the documented management plan and acknowledge its risk of complications. I agree with the findings and documentation provided in the FAMILIA's notes. <Dick Laboy - Last Filed: 09/21/24 14:12>
[2024-09-20] MEDS ORDERED: HEPARIN 5000 UNIT/ML 1 ML VIAL IV PRN (21:38)
[2024-09-20 21:51] LABS: Calcium Oxalate Crystals- Ur Few /HPF (None Seen); Specific Gravity > 1.030 (1.005-1.030); Sqamous Epithelial <5 /HPF (None Seen); Urine Bacteria None Seen /HPF (<20); Urine Bilirubin NEGATIVE (Negative); Urine Blood Negative (Negative); Urine Clarity Turbid (Clear); Urine Color Light-Yellow (Yellow); Urine Culture Reflex Order NOT NEEDED; Urine Glucose 4+ (Over) (Negative); Urine Ketones NEGATIVE (Negative); Urine Microscopic Reflex YN ORDER UMIC; Urine Mucus Slight /HPF (None Seen); Urine Nitrite NEGATIVE (Negative); Urine Protein 1+ (Negative); Urine Urobilinogen Normal (Normal); Urine WBC Clump Rare /HPF (None Seen); Urine Yeast (Budding) Trace /HPF (None Seen); Urine pH 5.5 (5.0-7.0)
[2024-09-20] MEDS: ALPRAZOLAM 0.25 MG TABLET PO PRN (22:21)
[2024-09-21 04:36] LABS: Absolute Basophils 0.1 K/uL (0-0.5); Absolute Eosinophils 0.3 K/uL (0-0.5); Absolute Monocytes 0.6 K/uL (0.1-1.3); Absolute Neutrophil 7.1 K/uL (1.8-8.0); Basophils % 0.7 % (0-1.3); Eosinophils % 2.5 % (0-4.4); Hematocrit 46.3 % (39.6-49.0); Hemoglobin 16.4 g/dL (13.6-17.9); Lymphocytes % 26.9 % (15.3-44.8); MCH 33.9 pg (27.0-35.0); MCHC 35.4 g/dL (32.0-36.0); MCV 95.9 fL (80-100); MPV 10.4 fL (7.6-11.3); Monocytes % 5.2 % (3.3-12.3); Neutrophils % 64.7 % (41.7-73.7); Nucleated Red Blood Cells % 0.1 % (0-0); Platelets 156 thou/uL (152-406); RBC Red Blood Cell Count 4.83 M/uL (4.33-5.43); Red Cell Distribution Width 13.1 % (12.1-15.2)
[2024-09-21] MEDS: HEPARIN/D5W 25,000 UNIT/500 ML BAG IV SCH (04:43)
[2024-09-21 04:45] LABS: Anion Gap 10.3 mEq/L (5.0-15.0); BUN Blood Urea Nitrogen 16 mg/dL (7-18); Bicarbonate 24 mEq/L (21-32); Glomerular Filtration Rate 91 ml/min (=/>90); Glucose Level 349 mg/dL (74-106); HDL Cholesterol 31 mg/dL (40-60); Magnesium 1.6 mg/dL (1.6-2.4); NT PRO-BNP 72 pg/mL (<125); Phosphorus 2.6 mg/dL (2.5-4.9); Potassium 4.3 mEq/L (3.5-5.1); Sodium Level 132 mEq/L (136-145)
[2024-09-21 04:57] LABS: Troponin High Sensitivity 3585.6 pg/mL (<58.9)
[2024-09-21 05:09] LABS: LDL, Direct 140 mg/dL (100-129)
[2024-09-21] MEDS: ASPIRIN EC 81 MG TAB PO ONE (06:06)
[2024-09-21] MEDS: ASPIRIN EC 81 MG TAB PO SCH (06:11)
[2024-09-21] MEDS: MAGNESIUM SULFATE 1 gm IVPB 1 GM/100 ML BAG IV ONE (06:11)
[2024-09-21] MEDS ORDERED: NITROGLYCERIN/D5W 50 MG/250 ML BTL IV ONE (07:04)
[2024-09-21] MEDS ORDERED: HEPA 1000U/500MLS 2,000 UNIT/1,000 ML BAG IV ONE (07:04)
[2024-09-21] MEDS ORDERED: HEPARIN 10,000 UNIT/10 ML VIAL IV ONE (07:05)
[2024-09-21] MEDS ORDERED: VERAPAMIL HCL 10 MG/4 ML VIAL IV ONE (07:05)
[2024-09-21] MEDS ORDERED: LIDOCAINE 1% 20 ML MDV ONE (07:05)
[2024-09-21] MEDS ORDERED: MIDAZOLAM HCL 2 MG/2 ML INJ ONE (07:05)
[2024-09-21] MEDS ORDERED: ATROPINE SULF 1 MG/10 ML SYR IV ONE (07:05)
[2024-09-21] MEDS ORDERED: TICAGRELOR 90 MG TABLET PO ONE (07:06)
[2024-09-21] MEDS ORDERED: CLOPIDOGREL 75 MG TABLET ONE (07:06)
[2024-09-21] MEDS ORDERED: ASPIRIN 325 MG TAB ONE (07:06)
[2024-09-21] MEDS ORDERED: HEPARIN 5000 UNIT/ML 1 ML VIAL ONE (07:06)
[2024-09-21] MEDS ORDERED: FENTANYL CITR 100 MCG/2 ML ONE (07:07)
[2024-09-21 07:14] VITALS: O2SAT 97
[2024-09-21] MEDS: ALPRAZOLAM 0.25 MG TABLET PO ONE (09:41)
--- NOTE | 2024-09-21 10:41 | P.CNS ---
Date of Consult: 09/21/24 Chief Complaint: NTSEMI History of Present Illness: Patient with PMH of HTN, HLD, DM, poor compliance, presented with chest pain, pressure in nature, no radiation, mid chest, felt heavy associated with nausea, diaphoresis, denies any other cardiac symptoms. Allergies aspirin Allergy (Verified 10/29/17 13:45) Unknown Home medications list reviewed: Yes Home Medications: NK [No Home Meds] 09/20/24 - Past Medical/Surgical History -: [id number] diabetes -: Neuropathy -: Nephrolithiasis - Social History Smoking Status: Current every day smoker Alcohol use: No CD- Drugs: No Caffeine use: Yes Place of Residence: Home Review of Systems 10-point ROS is otherwise unremarkable Physical Examination Temp Pulse Resp BP Pulse Ox 98.6 F 67 12 110/74 95 09/21/24 08:00 09/21/24 10:00 09/21/24 10:00 09/21/24 10:00 09/21/24 10:00 General: Alert, In no apparent distress HEENT: Atraumatic, PERRLA, Mucous membr. moist/pink, EOMI, Sclerae nonicteric Neck: Supple, 2+ carotid pulse no bruit, No LAD, Without JVD or thyroid abnormality Respiratory: Clear to auscultation bilaterally, Normal air movement Cardiovascular: Regular rate/rhythm, Normal S1 S2 Gastrointestinal: Normal bowel sounds, No tenderness Musculoskeletal: No tenderness Integumentary: No rashes Neurological: Normal gait, Normal speech, Normal tone, Normal affect Lymphatics: No axilla or inguinal lymphadenopathy Laboratory Data (last 24 hrs) 09/20/24 11:09 PT 11.7 INR 1.05 APTT 32.0 - Problems (1) NSTEMI (non-ST elevated myocardial infarction) Current Visit: Yes Status: Acute Plan: Patient EKG did not show ST elevation with high troponin so patient was admitted with NSTEMI, had another episode of chest pain overnight where he was started on NTG drip, repeated EKG still no STEMI. ASA 81 mg daily Lipitor 40 mg daily Heparin drip ACS protocol NTG drip titration for chest pain free Patient was suppose to have coronary angiogram today but due to technical issues with label printing machinist, it was postponed. label printing machinist will not operate until Saturday recommend Transfer for coronary angiogram. Echo is pending
--- NOTE | 2024-09-21 12:14 | EKG ---
Test Date: 2024-09-20 Test Time: 10:52:26 Certified Teacher Assistant: KELLY MEASUREMENT RESULTS: Intervals: Rate: 89 NH: 136 QRSD: 78 QT: 370 QTc: 450 [place]: P: 60 NH: 136 QRS: 68 T: 75 INTERPRETIVE STATEMENTS: Normal sinus rhythm with sinus arrhythmia Normal ECG Compared to ECG 09/10/2017 12:01:10 No significant changes Electronically Signed On 09-21-24 12:13:12 ROULETTE DEALER by Mic Hong
[2024-09-21 12:15] VITALS: TEMP 98.2
[2024-09-21 13:13] VITALS: BP 101/66
--- NOTE | 2024-09-21 13:18 | ECHO ---
HEIGHT: 5 ft 9 in WEIGHT: 224 lb 9.6 oz DATE OF STUDY: 09/21/[address]: Julissa Nava 2-DIMENSIONAL: YES M.MODE: YES DOPPLER: YES COLOR FLOW: YES TDS: NO PORTABLE: YES DEFINITY: NO BUBBLE STUDY: NO DIAGNOSIS: NSTEMI CARDIAC HISTORY: CATHERIZATION: NO SURGERY: NO PROSTHETIC VALVE: NO PACEMAKER: NO MEASUREMENTS (cm) DIASTOLIC (NORMALS) SYSTOLIC (NORMALS) IVSd 1.1 (0.6-1.2) LA Diam 2.4 (1.9-4.0) LVEF 40-45% LVIDd 3.4 (3.5-5.7) LVIDs 2.7 (2.0-3.5) %FS 21% LVPWd 1.2 (0.6-1.2) Ao Diam 2.8 (2.0-3.7) 2 DIMENSIONAL ASSESSMENT: RIGHT ATRIUM: NORMAL LEFT ATRIUM: NORMAL RIGHT VENTRICLE: NORMAL LEFT VENTRICLE: NORMAL TRICUSPID VALVE: TRACE TRICUSPID REGURGITATION MITRAL VALVE: NORMAL PULMONIC VALVE: NORMAL AORTIC VALVE: NORMAL PERICARDIAL EFFUSION: NONE AORTIC ROOT: NORMAL LEFT VENTRICULAR WALL MOTION: MILD GLOBAL HYPOKINESIS WITH MODERATE HYPOKINESIS OF MID INFEROLATERAL AND APICAL LATERAL ARAUJO. DOPPLER/COLOR FLOW: GRADE I DIASTOLIC DYSFUNCTION. COMMENTS: 1. POOR QUALITY. 2. MILDLY REDUCED LEFT VENTRICULAR SYSTOLIC FUNCTION. LEFT VENTRICULAR EJECTION FRACTION 40-45%. MILD GLOBAL HYPOKINESIS WITH MODERATE HYPOKINESIS OF MID INFEROLATERAL AND APICAL LATERAL ARAUJO. 3. GRADE I DIASTOLIC DYSFUNCTION. TECHNOLOGIST: ALEXANDRA CORRALES
--- NOTE | 2024-09-21 14:11 | P.DS ---
Discharge Date: 09/21/24 Disposition: TRANSFER TO [facility] Discharge Condition: FAIR Reason for Admission: NTSEMI Brief History of Present Illness: Patient is a 54 yrs old Male with a past medical history of diabetes, kidney stones, neuropathy, tobacco use, presents to the emergency room with chest pain. He reports chest pain started prior to arrival, 8 out of 10, partially relieved with as needed analgesics, current chest pain 6 out of 10, he reports radiates to his left arm, he denies shortness of breath, cough, abdominal pain, nausea vomiting diarrhea. He reports not taking any medications for hypertension, he denies history of LA, he reports smoking 1 pack a day, no reported use of EtOH, no reported use of illicit substance abuse. He reports not having a primary care doctor, not taking medications for diabetes, ER evaluation normal sinus rhythm at 65 bpm with normal intervals, normal QRS, normal axis, normal ST/T- segment's without any evidence of acute ischemia. BP 162 / 90; Pulse 87; Resp 18; Pulse Ox 100% on R/A; initial troponin 10.2, repeat troponin 655.6, started on a heparin drip in the emergency room., Blood glucose 286, repeat 412, CBC unremarkable, chest x-ray, no acute abnormality. Plan to admit for chest pain rule out LA, NSTEMI, Hospital Course: Patient scheduled for cardiac catheterization this a.m. Unfortunately, we had some difficulty with her cardiac catheterization lab. Patient was transferred to [facility] for coronary intervention. Continue nitro drip and heparin drip upon transfer. Vital Signs/Physical Exam: Temp Pulse Resp BP Pulse Ox 98.2 F 75 16 101/66 98 09/21/24 12:00 09/21/24 13:00 09/21/24 13:00 09/21/24 13:00 09/21/24 13:00 General: Alert, In no apparent distress, Oriented x3 Laboratory Data at Discharge: WBC 11.00 thou/uL (4.3-10.9) H 09/21/24 04:04 Hgb 16.4 g/dL (13.6-17.9) 09/21/24 04:04 Hct 46.3 % (39.6-49.0) 09/21/24 04:04 Plt Count 156 thou/uL (152-406) 09/21/24 04:04 PT 11.7 SECONDS (9.4-12.5) 09/20/24 11:09 INR 1.05 09/20/24 11:09 APTT 59.2 SECONDS (24.3-36.9) H 09/21/24 04:04 Sodium 132 mEq/L (136-145) L 09/21/24 04:04 Potassium 4.3 mEq/L (3.5-5.1) 09/21/24 04:04 BUN 16 mg/dL (7-18) 09/21/24 04:04 Creatinine 0.98 mg/dL (0.70-1.30) 09/21/24 04:04 Glucose 349 mg/dL (74-106) H 09/21/24 04:04 Phosphorus 2.6 mg/dL (2.5-4.9) 09/21/24 04:04 Magnesium 1.6 mg/dL (1.6-2.4) 09/21/24 04:04 Triglycerides 754 mg/dL (<150) H 09/21/24 04:04 Cholesterol 219 mg/dL (<200) H 09/21/24 04:04 LDL Cholesterol Direct 140 mg/dL (100-129) H 09/21/24 04:04 HDL Cholesterol 31 mg/dL (40-60) L 09/21/24 04:04 Cholesterol/HDL Ratio 7.06 09/21/24 04:04 Home Medications: NK [No Home Meds] 09/20/24 Physician Discharge Instructions: Transfer to [facility] Diet: AHA Activity: Fall precautions Followup: NONE,NONE [Primary Care Provider] - Time spent managing pt's care (in minutes): 35
[2024-09-22] MEDS ORDERED: FENOFIBRATE 160 MG TAB PO SCH (09:00)
--- NOTE | 2024-09-22 12:25 | EKG ---
Test Date: 2024-09-20 Test Time: 07:46:09 Pre School Manager: AF MEASUREMENT RESULTS: Intervals: Rate: 65 [place]: 148 QRSD: 80 QT: 388 QTc: 403 [place]: P: 55 WA: 148 QRS: 75 T: 79 INTERPRETIVE STATEMENTS: Normal sinus rhythm Normal ECG Compared to ECG 09/10/2017 12:01:10 No significant changes Electronically Signed On 09-22-24 12:18:38 RESAW CARRIAGE OPERATOR by Mic Hong
== END 2024-09-21 13:45 | disposition short-term general hospital (02) | DRG 282 ==
LOC: ER 06:44 → ERHOLD 11:39 → 3RD-ICU 12:36
PROVIDERS: ADMIT Internal Medicine Sleep Medicine; ATTEND Hospitalist
DX: I21.4 Non-ST elevation (NSTEMI) myocardial infarction (principal); I10 Essential (primary) hypertension; E78.5 Hyperlipidemia, unspecified; E11.65 Type 2 diabetes mellitus with hyperglycemia; E11.42 Type 2 diabetes mellitus with diabetic polyneuropathy; F17.210 Nicotine dependence, cigarettes, uncomplicated; Z88.6 Allergy status to analgesic agent; Z91.148 Patient's other noncompliance with medication regimen for other reason
CPT/HCPCS: 36415; 71045; 80048; 80061; 81001; 82947; 83036; 83735; 83880; 84100; 84484; 85025; 85610; 85730; 93005; 93306; 99285; J0461; J1644; J2003; J2250; J2405; J3010; J3475

== ENCOUNTER 2024-10-22 17:54 | Emergency (ER) | payer OTHER ==
[2024-10-22] MEDS ORDERED: MORPHINE 4 MG/ML SYR ONE ×2 (18:49→20:48)
[2024-10-22] MEDS ORDERED: ONDANSETRON 4 MG/2 ML VIAL ONE (18:49)
[2024-10-22 18:58] LABS: Absolute Basophils 0.1 K/uL (0-0.5); Absolute Eosinophils 0.3 K/uL (0-0.5); Absolute Lymphocytes (CBC) 2.7 K/uL (0.7-4.9); Absolute Monocytes 0.5 K/uL (0.1-1.3); Absolute Neutrophil 5.7 K/uL (1.8-8.0); Eosinophils % 3.1 % (0-4.4); Hematocrit 50.1 % (39.6-49.0); Hemoglobin 17.6 g/dL (13.6-17.9); Lymphocytes % 28.9 % (15.3-44.8); MCH 33.5 pg (27.0-35.0); MCHC 35.1 g/dL (32.0-36.0); MCV 95.4 fL (80-100); MPV 9.8 fL (7.6-11.3); Monocytes % 5.2 % (3.3-12.3); Neutrophils % 61.8 % (41.7-73.7); Platelets 172 thou/uL (152-406); RBC Red Blood Cell Count 5.25 M/uL (4.33-5.43); Red Cell Distribution Width 13.1 % (12.1-15.2)
[2024-10-22 19:16] LABS: Specific Gravity > 1.030 (1.005-1.030); Sqamous Epithelial <5 /HPF (None Seen); Urine Bacteria None Seen /HPF (<20); Urine Bilirubin NEGATIVE (Negative); Urine Blood 1+ (Negative); Urine Clarity Extremely Turbid (Clear); Urine Color Yellow (Yellow); Urine Crystals Unidentified Few /HPF (None Seen); Urine Culture Reflex Order REFLEXED; Urine Glucose 2+ (Negative); Urine Ketones TRACE (Negative); Urine Microscopic Reflex YN ORDER UMIC; Urine Mucus 2+ /HPF (None Seen); Urine Nitrite NEGATIVE (Negative); Urine Protein 2+ (Negative); Urine RBC 21-50 /HPF (None Seen); Urine Urobilinogen 1+ (Normal); Urine WBC 20-50 /HPF (<5); Urine WBC Clump Rare /HPF (None Seen); Urine Yeast (Budding) Occasional /HPF (None Seen); Urine pH 5.5 (5.0-7.0)
[2024-10-22 19:23] LABS: Albumin 3.8 g/dL (3.4-5.0); Anion Gap 13.7 mEq/L (5.0-15.0); Bilirubin Total 0.7 mg/dL (0.2-1.0); Potassium 3.7 mEq/L (3.5-5.1); Protein, Total 7.8 g/dL (6.4-8.2)
--- NOTE | 2024-10-22 20:27 | RAD REPORT ---
EXAMINATION: CT Abdomen Pelvis W Contrast CLINICAL INDICATION: Male, 54 years old. ABD PAIN TECHNIQUE: CT abdomen and pelvis was performed, after the administration of IV contrast, [facility]. Axial, sagittal and coronal reconstructions were obtained. One or more of the following dose reduction techniques were used: Automated exposure control, adjustment of the mA and k V according to patient size, and iterative reconstruction. Unless otherwise specified, incidental findings do not require dedicated imaging follow-up. COMPARISON: 02/01/2020 FINDINGS: LOWER CHEST: The visualized lung bases are clear. LIVER: Significant fatty liver with hepatomegaly present. No focal lesion or biliary dilitation. BILIARY SYSTEM: No suspicious abnormalities. SPLEEN: Normal size. No focal lesion. PANCREAS: No mass, ductal dilation, or sarika-pancreatic fluid. ADRENALS: Normal; no mass. KIDNEYS: Normal size and contour. No hydronephrosis. Accumulation of calculi in the right lower renal pole, largest measuring 1.3 cm. URINARY BLADDER: Decompressed limiting evaluation. GASTROINTESTINAL TRACT: No evidence of free air, significant intra-abdominal free fluid, bowel obstru ction or abscess. APPENDIX: Normal appendix. LYMPH NODES: No lymphadenopathy. MUSCULOSKELETAL: No acute or suspicious osseous abnormality. ADDITIONAL FINDINGS: None. IMPRESSION: Numerous right renal nonobstructing calculi largest measuring up to 1.3 cm. No other acute or concerning abnormalities seen in the abdomen or pelvis.
--- NOTE | 2024-10-22 20:34 | ER ---
Nurse's Notes [facility] Name: Parker Miller Jr Age: 54 yrs Sex: Male : 1970 Arrival Date: 10/22/2024 Time: 17:54 Bed 20 Private MD: Diagnosis: Lower abdominal pain, unspecified;Calculus of kidney;UTI/ Urinary tract infection, site not specified Presentation: 10/22 18:03 Chief complaint: Patient states: recurrent abdominal pain RLQ into groin and flank, has ko1 been going on for "30 years". Coronavirus screen: At this time, the client does not indicate any symptoms associated with coronavirus-19. Ebola Screen: No symptoms or risks identified at this time. Initial Sepsis Screen: Does the patient meet any 2 criteria? No. Patient's initial sepsis screen is negative. Does the patient have a suspected source of infection? No. Patient's initial sepsis screen is negative. Risk Assessment: Do you want to hurt yourself or someone else? Patient reports no desire to harm self or others. Onset of symptoms is unknown. 18:03 Method Of Arrival: Ambulatory ko1 18:03 Acuity: [place] 3 ko1 Triage Assessment: 18:06 General: Appears distressed, uncomfortable, Behavior is cooperative, appropriate for ko1 age. Pain: Complains of pain in posterior aspect of right lateral abdomen and right lower quadrant. GI: Reports lower abdominal pain, nausea. Historical: - Allergies: 18:06 No Known Allergies; ko1 - PMHx: 18:06 Diabetes - NIDDM; Kidney stones; neuropathy; ko1 - Immunization history:: Adult Immunizations up to date. - Infectious Disease History:: Denies. - Social history:: Smoking status: Patient reports the use of cigarette tobacco products, smokes one pack cigarettes per day. - Family history:: not pertinent. - Hospitalizations: : No recent hospitalization is reported. Screenin:05 [facility] ED Fall Risk Assessment (Adult) History of falling in the last 3 months, db including since admission No falls in past 3 months (0 pts) Confusion or Disorientation No (0 pts) Intoxicated or Sedated No (0 pts) Impaired Gait No (0 pts) Mobility Assist Device Used No (0 pt) Altered Elimination No (0 pt) Score/Fall Risk Level 0 - 2 = Low Risk Oriented to surroundings, Maintained a safe environment. Abuse screen: Denies threats or abuse. Denies injuries from another. Nutritional screening: No deficits noted. Tuberculosis screening: No symptoms or risk factors identified. Assessment: 18:17 Reassessment: Patient appears in no apparent distress at this time. Patient and/or db family updated on plan of care and expected duration. Pain level reassessed. Patient is alert, oriented x 3, equal unlabored respirations, skin warm/dry/pink. General: Appears in no apparent distress. comfortable, Behavior is calm, cooperative. Pain: Complains of pain in abdomen. Neuro: Level of Consciousness is awake, alert, obeys commands, Oriented to person, place, time, situation. 19:00 Reassessment: Patient appears in no apparent distress at this time. Patient and/or kj2 family updated on plan of care and expected duration. Pain level reassessed. Patient is alert, oriented x 3, equal unlabored respirations, skin warm/dry/pink. 20:40 GI: Bowel sounds present X 4 quads. kj2 Vital Signs: 18:03 BP 163 / 103; Pulse 86; Resp 26; Temp 97; Pulse Ox 100% ; ko1 18:30 BP 157 / 117; Pulse 78; Resp 16; Pulse Ox 99% ; db ED Course: 17:57 Patient arrived in ED. mr 18:00 Jimy Escobedo MD is Attending Physician. rn 18:06 Triage completed. ko1 18:06 Arm band placed on right wrist. Patient placed in an exam room, on a stretcher, on ko1 pulse oximetry, Patient notified of wait time. 18:45 Dawna Smith, RN is Primary Nurse. db 18:48 Initial lab(s) drawn, by il, sent to lab. db 18:54 Inserted saline lock: 20 gauge in right forearm, using aseptic technique. Blood db collected. Flushed with 10 mL NS. 18:58 Urine collected: clean catch specimen, clear. db 19:10 Patient has correct armband on for positive identification. Call light in reach. kj2 Provided Education on: CALL LIGHT. 19:57 CT Abd/Pelvis - IV Contrast Only In Process Unspecified. EDMS 20:11 Linda Almaguer, RN is Primary Nurse. kj2 20:39 No provider procedures requiring assistance completed. IV discontinued, intact, kj2 bleeding controlled, No redness/swelling at site. Pressure dressing applied. Administered Medications: 18:55 Drug: Ondansetron IVP 4 mg IVP once; over 2 minutes Route: IVP; Site: right forearm; db 20:41 Follow up: Response: No adverse reaction kj2 18:55 Drug: morphine IVP or IV 4 mg IVP once over 4 mins Route: IVP; Infused Over: 4 mins; db Site: right forearm; 20:41 Follow up: Response: No adverse reaction kj2 20:45 Drug: morphine IVP or IV 4 mg IVP once over 4 mins Route: IVP; Infused Over: 4 mins; kj2 Site: right forearm; 10/23 04:50 Follow up: Response: No adverse reaction; Medication administered at discharge. kj2 10/22 20:45 Drug: Amoxicillin-Clavulanate PO 875 mg PO once Route: PO; kj2 10/23 04:50 Follow up: Response: No adverse reaction; Medication administered at discharge. kj2 Medication: 10/22 20:39 VIS not applicable for this client. kj2 Outcome: 20:33 Discharge ordered by . rn 20:40 Discharged to home ambulatory, kj2 20:40 Condition: good 20:40 Discharge instructions given to patient, Instructed on discharge instructions, follow up and referral plans. Demonstrated understanding of instructions, follow-up care, 21:01 Patient left the ED. kj2 Signatures: Dispatcher [employer] EDRoberta Pool, Ritchie Dugan mr Jimy Escobedo MD MD rn Oliver, Kathy, RN RN ko1 Dawna Smith RN RN db Jordan, Krystal, RN RN kj2
--- NOTE | 2024-10-22 20:34 | EDPHYS ---
Physician Documentation [facility] Name: Parker Miller Jr Age: 54 yrs Sex: Male : 1970 Arrival Date: 10/22/2024 Time: 17:54 Bed 20 Private MD: ED Physician Jimy Escobedo HPI: 10/22 19:26 This 54 yrs old Male presents to ER via Ambulatory with complaints of Abdominal Pain, rn Back Pain. 19:26 The patient presents with pain that is acute, with no known mechanism of injury. The rn symptoms are located in the low back. Onset: The symptoms/episode began/occurred at an unknown time. The pain radiates to the abdomen. Modifying factors: The patient symptoms are alleviated by nothing, the patient symptoms are aggravated by nothing. Severity of symptoms: At their worst the symptoms were moderate, in the emergency department the symptoms are unchanged. The patient has experienced similar episodes in the past. The patient has not recently seen a physician. Patient reports right-sided abdominal pain and back pain, states has had it for a month, been evaluated for this without clear etiology. Has a history of kidney stones. Denies trauma. No urinary symptoms or bowel symptoms. No blood in stool. No testicular pain or swelling.. Historical: - Allergies: 18:06 No Known Allergies; ko1 - PMHx: 18:06 Diabetes - NIDDM; Kidney stones; neuropathy; ko1 - Immunization history:: Adult Immunizations up to date. - Infectious Disease History:: Denies. - Social history:: Smoking status: Patient reports the use of cigarette tobacco products, smokes one pack cigarettes per day. - Family history:: not pertinent. - Hospitalizations: : No recent hospitalization is reported. ROS: 19:26 Constitutional: Negative for fever, chills, and weight loss, Cardiovascular: Negative rn for chest pain, palpitations, and edema, Respiratory: Negative for shortness of breath, cough, wheezing, and pleuritic chest pain, Abdomen/GI: Positive for abdominal pain Back: Positive for right back pain MS/Extremity: Negative for injury and deformity, Skin: Negative for injury, rash, and discoloration, Neuro: Negative for headache, weakness, numbness, tingling, and seizure, Exam: 19:26 Constitutional: This is a well developed, well nourished patient who is awake, alert, rn appears uncomfortable. Cardiovascular: Regular rate and rhythm. No pulse deficits. Respiratory: No increased work of breathing, no retractions or nasal flaring. Abdomen/GI: Soft, non-tender Back: No spinal tenderness. No costovertebral tenderness. Vital Signs: 18:03 BP 163 / 103; Pulse 86; Resp 26; Temp 97; Pulse Ox 100% ; ko1 18:30 BP 157 / 117; Pulse 78; Resp 16; Pulse Ox 99% ; db MDM: 18:00 Medical Screening Exam initiated rn 20:31 Differential diagnosis: chronic back pain, Ureterolithiasis UTI, nonspecific abd pain. rn Data reviewed: vital signs, nurses notes, lab test result(s), radiologic studies, CT scan, and as a result, I will discharge patient. Counseling: I had a detailed discussion with the patient and/or guardian regarding the historical points, exam findings, and any diagnostic results supporting the discharge/admit diagnosis, lab results, radiology results, the need for outpatient follow up, to return to the emergency department if symptoms worsen or persist or if there are any questions or concerns that arise at home. Response to treatment: the patient's symptoms have markedly improved after treatment, and as a result, I will discharge patient. Special discussion: Based on the patient's Hx, exam, and Dx evaluation, there is no indication for emergent surgery or inpatient Tx. It is understood by the patient/guardian that if the Sx's persist or worsen they need to return immediately for re-evaluation. I discussed with the patient/guardian in detail that at this point there is no indication for admission to the hospital. It is understood, however, that if the symptoms persist or worsen the patient needs to return immediately for re-evaluation. ED course: No acute findings in CT abdomen pelvis. Still persistent kidney stones that are large but in kidney, not actively passing. Questionable UTI. Will discharge home with pain medication and antibiotics with return precautions.. 10/22 18:12 Order name: CBC with Diff; Complete Time: 19:22 rn 10/22 18:12 Order name: CMP; Complete Time: 19:50 rn 10/22 18:12 Order name: Lipase; Complete Time: 19:50 rn 10/22 18:12 Order name: Urinalysis w/ reflexes; Complete Time: 19:22 rn 10/22 19:21 Order name: Urine Culture EDHI 10/22 18:12 Order name: CT Abd/Pelvis - IV Contrast Only; Complete Time: 20:28 rn 10/22 18:12 Order name: IV Saline Lock; Complete Time: 18:54 rn 10/22 18:12 Order name: Labs collected and sent; Complete Time: 18:54 rn Administered Medications: 18:55 Drug: Ondansetron IVP 4 mg IVP once; over 2 minutes Route: IVP; Site: right forearm; db 20:41 Follow up: Response: No adverse reaction kj2 18:55 Drug: morphine IVP or IV 4 mg IVP once over 4 mins Route: IVP; Infused Over: 4 mins; db Site: right forearm; 20:41 Follow up: Response: No adverse reaction kj2 20:45 Drug: morphine IVP or IV 4 mg IVP once over 4 mins Route: IVP; Infused Over: 4 mins; kj2 Site: right forearm; 10/23 04:50 Follow up: Response: No adverse reaction; Medication administered at discharge. kj2 10/22 20:45 Drug: Amoxicillin-Clavulanate PO 875 mg PO once Route: PO; kj2 10/23 04:50 Follow up: Response: No adverse reaction; Medication administered at discharge. kj2 Disposition Summary: 10/22/24 20:33 Discharge Ordered Notes: Location: Home rn Problem: an ongoing problem rn Symptoms: have improved rn Condition: Stable rn Diagnosis - Lower abdominal pain, unspecified rn - Calculus of kidney rn - UTI/ Urinary tract infection, site not specified rn Followup: rn - With: Private Physician - When: As needed - Reason: Recheck today's complaints, Re-evaluation by your physician Discharge Instructions: - Discharge Summary Sheet rn - Abdominal Pain, Adult rn - Urinary Tract Infection, Adult rn Forms: - Medication Reconciliation Form rn - Antibiotic sow farm barn technician - Prescription Opioid Use rn - Patient Portal Instructions rn - Leadership Thank You Letter rn Prescriptions: - Augmentin 875-125 mg Oral Tablet - take 1 tablet ORAL route every 12 hours for 10 days; 20 tablet; Refills: 0, rn Product Selection Permitted - Tramadol 50 mg Oral Tablet - take 1 tablet ORAL route every 8 hours as needed; 12 tablet; Refills: 0, rn Product Selection Permitted Signatures: Dispatcher [employer] [facility] Jimy Escobedo MD MD rn Oliver, Kathy, RN RN ko1 Dawna Smith RN RN db Linda Almaguer RN RN kj2 Corrections: (The following items were deleted from the chart) 10/22 18:13 18:13 CBC+H.LAB.BRZ ordered. EDMS EDMS 18:13 18:13 COMPREHENSIVE METABOLIC PANEL+C.LAB.BRZ ordered. EDMS EDMS 18:13 18:13 LIPASE+C.LAB.BRZ ordered. EDMS EDMS 18: 18:13 Urinalysis+U.LAB.BRZ ordered. EDMS EDMS
[2024-10-22] MEDS ORDERED: AMOX/K CLAV 875 MG TAB ONE (20:47)
[2024-10-23 04:54] VITALS: TEMP 97
[2024-10-23 04:59] VITALS: BP 157/117; O2SAT 99
== END 2024-10-22 21:01 | disposition home or self-care (01) ==
LOC: ER 17:54
DX: N20.0 Calculus of kidney (principal); N39.0 Urinary tract infection, site not specified; Z87.442 Personal history of urinary calculi; E11.9 Type 2 diabetes mellitus without complications; F17.210 Nicotine dependence, cigarettes, uncomplicated
CPT/HCPCS: 87088; 85025; 81001; 87086; 36415; 83690; 80053; 74177; 96375; 96374; 99284; Q9967; J2405

== ENCOUNTER 2025-03-28 01:05 | Emergency (ER) | payer OTHER ==
[2025-03-28] MEDS ORDERED: MORPHINE 4 MG/ML SYR ONE ×2 (01:53→03:53)
[2025-03-28] MEDS ORDERED: ONDANSETRON 4 MG/2 ML VIAL ONE ×2 (01:53→03:54)
[2025-03-28] MEDS ORDERED: NA CHLORIDE 0.9% 1,000 ML ONE ×2 (01:54→04:38)
[2025-03-28 02:16] LABS: Absolute Basophils 0.1 K/uL (0-0.5); Absolute Eosinophils 0.3 K/uL (0-0.5); Absolute Lymphocytes (CBC) 2.4 K/uL (0.7-4.9); Absolute Monocytes 0.5 K/uL (0.1-1.3); Absolute Neutrophil 4.8 K/uL (1.8-8.0); Basophils % 1.1 % (0-1.3); Eosinophils % 3.8 % (0-4.4); Hematocrit 47.5 % (39.6-49.0); Hemoglobin 17.3 g/dL (13.6-17.9); Lymphocytes % 29.5 % (15.3-44.8); MCV 93.8 fL (80-100); MPV 10.2 fL (7.6-11.3); Monocytes % 6.5 % (3.3-12.3); Neutrophils % 59.1 % (41.7-73.7); Nucleated Red Blood Cells % 0.1 % (0-0); Platelets 148 thou/uL (152-406); RBC Red Blood Cell Count 5.06 M/uL (4.33-5.43); Red Cell Distribution Width 12.6 % (12.1-15.2)
[2025-03-28 02:42] LABS: MCH 34.3 pg (27.0-35.0); MCHC 36.3 g/dL (32.0-36.0)
[2025-03-28 02:57] LABS: Albumin 3.6 g/dL (3.4-5.0); Bilirubin Total 0.5 mg/dL (0.2-1.0); Globulin 3.5 g/dL (2.3-3.5); Protein, Total 7.1 g/dL (6.4-8.2)
[2025-03-28] MEDS ORDERED: INSULIN REGULAR (HUMAN) 100 UNIT/ML ONE (03:43)
--- NOTE | 2025-03-28 06:12 | ER ---
Nurse's Notes [facility] Name: Parker Miller Jr Age: 54 yrs Sex: Male : 1970 Arrival Date: 03/28/2025 Time: 01:05 Bed 20 Private MD: Diagnosis: Nausea with vomiting, unspecified;Abdominal pain, unspecified;Dorsalgia, unspecified;Calculus of kidney Presentation: 03/28 01:33 Initial Sepsis Screen: Does the patient meet any 2 criteria? No. Patient's initial rg5 sepsis screen is negative. Does the patient have a suspected source of infection? No. Patient's initial sepsis screen is negative. 01:34 Chief complaint: Patient states: right sided abdominal pain radiating into the back lg3 with nausea X 25 years. skin pain. Coronavirus screen: Client denies travel out of the [place] in the last 14 days. At this time, the client does not indicate any symptoms associated with coronavirus-19. Ebola Screen: No symptoms or risks identified at this time. Risk Assessment: Do you want to hurt yourself or someone else? Patient reports no desire to harm self or others. Onset of symptoms is unknown. 01:34 Method Of Arrival: Ambulatory lg3 01:34 Acuity: LAKE[place] 3 lg3 Triage Assessment: 01:35 General: Appears in no apparent distress. comfortable, Behavior is calm, cooperative. lg3 Pain: Complains of pain in right upper quadrant and right lower quadrant Pain radiates to back. EENT: No deficits noted. No signs and/or symptoms were reported regarding the EENT system. Neuro: No deficits noted. Plascencia Agitation-Sedation Scale (RASS): 0 - Alert and Calm Level of Consciousness is awake, alert, obeys commands, Oriented to person, place, time, situation. Cardiovascular: No deficits noted. Denies chest pain, shortness of breath, Capillary refill < 3 seconds Clubbing of nail beds is absent JVD is absent Patient's skin is warm and dry. Respiratory: No deficits noted. Airway is patent Respiratory effort is even, unlabored, Respiratory pattern is regular, symmetrical. GI: No deficits noted. Abdomen is round non-distended, obese, Reports lower abdominal pain, nausea. : No signs and/or symptoms were reported regarding the genitourinary system. Derm: Reports pain that is 5 out of 10 on a pain scale. Musculoskeletal: No deficits noted. No signs and/or symptoms reported regarding the musculoskeletal system. Circulation, motion, and sensation intact. Range of motion: intact in all extremities. Historical: - Allergies: :35 No Known Allergies; lg3 - Home Meds: :35 None [Active]; lg3 - PMHx: 01:35 Diabetes - NIDDM; Kidney stones; neuropathy; lg3 - PSHx: :35 Lithotripsy; lg3 - Immunization history:: Adult Immunizations up to date. - Infectious Disease History:: Denies. - Social history:: Smoking status: Patient reports the use of cigarette tobacco products, smokes two packs cigarettes per day. Patient/guardian denies using alcohol, street drugs. Screenin:30 [facility] ED Fall Risk Assessment (Adult) History of falling in the last 3 months, rg5 including since admission No falls in past 3 months (0 pts) Confusion or Disorientation No (0 pts) Intoxicated or Sedated No (0 pts) Impaired Gait No (0 pts) Mobility Assist Device Used No (0 pt) Altered Elimination No (0 pt) Score/Fall Risk Level 0 - 2 = Low Risk Oriented to surroundings, Maintained a safe environment, Hourly rounding (assess needs \T\ fall precautionary measures) done. Abuse screen: Denies threats or abuse. Nutritional screening: No deficits noted. Tuberculosis screening: No symptoms or risk factors identified. Assessment: 01:30 General: Appears uncomfortable, Behavior is calm, cooperative, appropriate for age. rg5 Pain: Complains of pain in right upper quadrant and right lower quadrant Pain radiates to right low back Pain currently is 10 out of 10 on a pain scale. Quality of pain is described as aching, shooting, Pain began 2-3 days ago. 01:30 Neuro: Level of Consciousness is awake, alert, obeys commands, Oriented to person, rg5 place, time, situation. Cardiovascular: Denies chest pain, Patient's skin is warm and dry. Respiratory: Airway is patent Trachea midline Respiratory effort is even, unlabored, Breath sounds are clear. GI: Abdomen is round non-distended, Abd is soft and non tender Reports lower abdominal pain, nausea, vomiting. : Reports burning with urination. EENT: No deficits noted. Derm: Skin is intact, Skin is dry, Skin is normal, Skin temperature is warm. Musculoskeletal: Circulation, motion, and sensation intact. Range of motion: intact in all extremities. 02:25 Reassessment: No changes from previously documented assessment. Patient and/or family rg5 updated on plan of care and expected duration. Pain level reassessed. Patient is alert, oriented x 3, equal unlabored respirations, skin warm/dry/pink. 03:05 Reassessment: No changes from previously documented assessment. Patient and/or family rg5 updated on plan of care and expected duration. Pain level reassessed. Patient is alert, oriented x 3, equal unlabored respirations, skin warm/dry/pink. 04:00 Reassessment: No changes from previously documented assessment. Patient and/or family rg5 updated on plan of care and expected duration. Pain level reassessed. Patient is alert, oriented x 3, equal unlabored respirations, skin warm/dry/pink. 04:00 Pain: Complains of pain in right lower quadrant Pain currently is 8 out of 10 on a pain rg5 scale. 05:14 Reassessment: Patient and/or family updated on plan of care and expected duration. Pain rg5 level reassessed. Patient is alert, oriented x 3, equal unlabored respirations, skin warm/dry/pink. Patient states symptoms have improved. Vital Signs: 01:45 BP 145 / 104; Pulse 85; Resp 17; Temp 98.1; Pulse Ox 97% on R/A; vk 01:45 BP 145 / 104; Pulse 90; Resp 18; Temp 98; Pulse Ox 99% on R/A; Weight 105 kg; Height 5 rg5 ft. 9 in. ; Pain 10/10; 02:30 BP 136 / 85; Pulse 90; Resp 90; Pulse Ox 96% ; Pain 7/10; rg5 03:00 BP 143 / 97; Pulse 76; Resp 18; Pulse Ox 99% on R/A; Pain 7/10; rg5 04:00 BP 169 / 111; Pulse 79; Resp 18; Pulse Ox 97% ; Pain 8/10; rg5 04:35 BP 148 / 106; Pulse 79; Resp 17; Pulse Ox 99% on R/A; rg5 05:15 BP 159 / 109; Pulse 83; Resp 18; Pulse Ox 97% ; rg5 01:45 Body Mass Index 34.18 (105.00 kg, 175.26 cm) rg5 01:45 Pain Scale: Adult rg5 02:30 Pain Scale: Adult rg5 03:00 Pain Scale: Adult rg5 04:00 Pain Scale: Adult rg5 ED Course: 01:09 Patient arrived in ED. gm2 01:25 Stoney Valenzuela, RN is Primary Nurse. rg5 01:25 Jw Beasley PA is PHCP. cp 01:25 Jw Guzman MD is Attending Physician. cp 01:30 Patient has correct armband on for positive identification. Bed in low position. Call rg5 light in reach. Side rails up X 1. Door closed. Noise minimized. Warm blanket given. 01:30 No provider procedures requiring assistance completed. rg5 01:35 Triage completed. lg3 01:35 Arm band placed on right wrist. lg3 01:45 Initial lab(s) drawn, by me, sent to lab. Inserted saline lock: 20 gauge in left vk antecubital area, using aseptic technique. Blood collected. Flushed with 10 mL NS. 03:33 CT Abd/Pelvis- W/WO Contrast In Process Unspecified. EDMS 06:22 IV discontinued, bleeding controlled, No redness/swelling at site. Pressure dressing rg5 applied. 06:23 Provided Education on: post er care done. rg5 Administered Medications: 02:08 Drug: Ondansetron IVP 4 mg IVP once; over 2 minutes Route: IVP; Site: right forearm; rg5 03:02 Follow up: Response: No adverse reaction rg5 02:08 Drug: morphine IVP or IV 4 mg IVP once over 4 mins Route: IVP; Infused Over: 4 mins; rg5 Site: right forearm; 03:02 Follow up: Response: No adverse reaction; Pain is decreased rg5 02:08 Drug: NS 0.9% IV 1000 ml IV at 1 bolus Per protocol; to be given as a bolus over 60 rg5 minutes Route: IV; Rate: 1 bolus; Site: right forearm; 03:55 Follow up: IV Status: Completed infusion; IV Intake: 1000ml rg5 03:44 Drug: Insulin Regular Human IVP 10 units IVP once {Co-Signature: kd3 (Tomasa Stovall RN).} Route: IVP; Site: right forearm; 04:03 Follow up: Response: No adverse reaction rg5 04:04 Drug: morphine IVP or IV 4 mg IVP once over 4 mins Route: IVP; Infused Over: 4 mins; rg5 Site: right forearm; 04:44 Follow up: Response: No adverse reaction; Pain is decreased rg5 04:04 Drug: Ondansetron IVP 4 mg IVP once; over 2 minutes Route: IVP; Site: right forearm; rg5 04:44 Follow up: Response: No adverse reaction; Pain is decreased rg5 04:43 CANCELLED (Physician Discretion): insulin regular human10 units IVP once cp 04:44 Drug: NS 0.9% IV 1000 ml IV at 1 bolus Per protocol; to be given as a bolus over 60 rg5 minutes Route: IV; Rate: 1 bolus; Site: right forearm; 05:45 Follow up: IV Status: Completed infusion; IV Intake: 1000ml rg5 Medication: 01:30 VIS not applicable for this client. rg5 Point of Care Testing: Blood Glucose: 05:45 Blood Glucose: 259 mg/dL; rg5 Ranges: Intake: 03:55 IV: 1000ml; Total: 1000ml. rg5 05:45 IV: 1000ml; Total: 2000ml. rg5 Outcome: 06:11 Discharge ordered by MD. cp 06:22 Discharged to home ambulatory, rg5 06:22 Condition: stable 06:22 Discharge instructions given to patient, Prescriptions given X 2, 06:23 Patient left the ED. rg5 Signatures: Dispatcher [employer] EDMS Jw Beasley PA PA cp Able, Lacie, RN RN lg3 Lluvia Driver Vivian vk Gallardo, Rommel, RN RN rg5 Tomasa Stovall RN kd3
--- NOTE | 2025-03-28 06:12 | EDPHYS ---
Physician Documentation [facility] Name: Parker Miller Jr Age: 54 yrs Sex: Male : 1970 Arrival Date: 03/28/2025 Time: 01:05 Bed 20 Private MD: ED Physician Jw Guzman HPI: 03/28 02:00 This 54 yrs old Male presents to ER via Ambulatory with complaints of Rt side abd pain, cp Nausea/Vomiting. 02:00 The patient presents with right flank pain. cp 02:00 Onset: The symptoms/episode began/occurred reports intermittent pain for years, worse cp over past 1 week. reports skin is painful and sensitive. Associated signs and symptoms: Pertinent positives: nausea and vomiting, Pertinent negatives: chest pain, constipation, diarrhea, fever, shortness of breath, testicular pain. Severity of pain: in the emergency department the pain is unchanged despite home interventions. Historical: - Allergies: 01:35 No Known Allergies; lg3 - Home Meds: 01:35 None [Active]; lg3 - PMHx: 01:35 Diabetes - NIDDM; Kidney stones; neuropathy; lg3 - PSHx: 01:35 Lithotripsy; lg3 - Immunization history:: Adult Immunizations up to date. - Infectious Disease History:: Denies. - Social history:: Smoking status: Patient reports the use of cigarette tobacco products, smokes two packs cigarettes per day. Patient/guardian denies using alcohol, street drugs. ROS: 02:05 Constitutional: Negative for body aches, chills, fever, poor PO intake, cp 02:05 Eyes: Negative for injury, pain, redness, and discharge, cp 02:05 Cardiovascular: Negative for chest pain, edema, palpitations, 02:05 Respiratory: Negative for cough, shortness of breath, wheezing, 02:05 Abdomen/GI: Positive for nausea and vomiting, Negative for diarrhea, constipation, 02:05 Back: Positive for flank pain, on the right, 02:05 : Negative for urinary symptoms, testicular pain 02:05 Skin: Negative for cellulitis, rash, 02:05 Neuro: Negative for altered mental status, dizziness, headache, weakness, 02:05 All other systems are negative, Exam: 02:10 Constitutional: The patient appears in no acute distress, alert, awake, non-toxic, well cp developed, well nourished, uncomfortable, 02:10 Head/Face: Normocephalic, atraumatic. cp 02:10 Eyes: Periorbital structures: appear normal, Conjunctiva: normal, no exudate, no injection, Sclera: no appreciated abnormality, Lids and lashes: appear normal, bilaterally, 02:10 ENT: External ear(s): are unremarkable, Nose: is normal, Mouth: Lips: moist, Oral mucosa: moist, Posterior pharynx: Airway: no evidence of obstruction, patent, 02:10 Chest/axilla: Inspection: normal, 02:10 Cardiovascular: Rate: normal, Edema: is not appreciated, JVD: is not appreciated, 02:10 Respiratory: the patient does not display signs of respiratory distress, Respirations: normal, no use of accessory muscles, no retractions, labored breathing, is not present, Breath sounds: are clear throughout, no decreased breath sounds, no stridor, no wheezing, 02:10 Abdomen/GI: Inspection: abdomen appears normal, Bowel sounds: active, all quadrants, Palpation: soft, in all quadrants, moderate abdominal tenderness, in the anterior aspect of right lateral abdomen and posterior aspect of right lateral abdomen, rebound tenderness, is not appreciated, 02:10 Skin: cellulitis, is not appreciated, no rash present. Vital Signs: 01:45 BP 145 / 104; Pulse 85; Resp 17; Temp 98.1; Pulse Ox 97% on R/A; vk 01:45 BP 145 / 104; Pulse 90; Resp 18; Temp 98; Pulse Ox 99% on R/A; Weight 105 kg; Height 5 rg5 ft. 9 in. ; Pain 10/10; 02:30 BP 136 / 85; Pulse 90; Resp 90; Pulse Ox 96% ; Pain 7/10; rg5 03:00 BP 143 / 97; Pulse 76; Resp 18; Pulse Ox 99% on R/A; Pain 7/10; rg5 04:00 BP 169 / 111; Pulse 79; Resp 18; Pulse Ox 97% ; Pain 8/10; rg5 04:35 BP 148 / 106; Pulse 79; Resp 17; Pulse Ox 99% on R/A; rg5 05:15 BP 159 / 109; Pulse 83; Resp 18; Pulse Ox 97% ; rg5 01:45 Body Mass Index 34.18 (105.00 kg, 175.26 cm) rg5 01:45 Pain Scale: Adult rg5 02:30 Pain Scale: Adult rg5 03:00 Pain Scale: Adult rg5 04:00 Pain Scale: Adult rg5 MDM: 06:11 Medical Screening Exam initiated cp 06:11 Data reviewed: vital signs, nurses notes, lab test result(s), radiologic studies, CT cp scan, and as a result, I will discharge patient. 06:11 Differential diagnosis: Pyelonephritis, Ureterolithiasis, urinary tract infection, cp colitis, chronic pain. I considered the following discharge prescriptions or medication management in the emergency department Medications were administered in the Emergency Department. See MAR. Care significantly affected by the following chronic conditions: Diabetes. Counseling: I had a detailed discussion with the patient and/or guardian regarding the historical points, exam findings, and any diagnostic results supporting the discharge/admit diagnosis, lab results, radiology results, to return to the emergency department if symptoms worsen or persist or if there are any questions or concerns that arise at home. Response to treatment: the patient's symptoms have markedly improved after treatment, and as a result, I will discharge patient. 03/28 01:57 Order name: CBC with Diff; Complete Time: 03:35 03/28 03:35 Interpretation: Normal except: MCHC 36.3; PLT 148. 03/28 01:57 Order name: CMP; Complete Time: 03:35 03/28 03:35 Interpretation: Normal except: NA 130; BUN 22; CRE 1.31; GFR 64; A/G 1.0; GLUC 453. 03/28 01:57 Order name: Lipase; Complete Time: 03:35 03/28 03:53 Order name: Glucose, Ancillary Testing; Complete Time: 04:39 EDMS 03/28 04:40 Interpretation: Reviewed. 03/28 04:43 Order name: Glucose, Ancillary Testing; Complete Time: 06:09 EDMS 03/28 05:56 Order name: Glucose, Ancillary Testing; Complete Time: 06:09 EDNJ 03/28 01:57 Order name: CT Abd/Pelvis- W/WO Contrast 03/28 01:57 Order name: IV Saline Lock; Complete Time: 01:58 03/28 01:57 Order name: Labs collected and sent; Complete Time: 01:58 cp Administered Medications: 02:08 Drug: Ondansetron IVP 4 mg IVP once; over 2 minutes Route: IVP; Site: right forearm; rg5 03:02 Follow up: Response: No adverse reaction rg5 02:08 Drug: morphine IVP or IV 4 mg IVP once over 4 mins Route: IVP; Infused Over: 4 mins; rg5 Site: right forearm; 03:02 Follow up: Response: No adverse reaction; Pain is decreased rg5 02:08 Drug: NS 0.9% IV 1000 ml IV at 1 bolus Per protocol; to be given as a bolus over 60 rg5 minutes Route: IV; Rate: 1 bolus; Site: right forearm; 03:55 Follow up: IV Status: Completed infusion; IV Intake: 1000ml rg5 03:44 Drug: Insulin Regular Human IVP 10 units IVP once {Co-Signature: kd3 (Tomasa Stovall rg5 RN).} Route: IVP; Site: right forearm; 04:03 Follow up: Response: No adverse reaction rg5 04:04 Drug: morphine IVP or IV 4 mg IVP once over 4 mins Route: IVP; Infused Over: 4 mins; rg5 Site: right forearm; 04:44 Follow up: Response: No adverse reaction; Pain is decreased rg5 04:04 Drug: Ondansetron IVP 4 mg IVP once; over 2 minutes Route: IVP; Site: right forearm; rg5 04:44 Follow up: Response: No adverse reaction; Pain is decreased rg5 04:43 CANCELLED (Physician Discretion): insulin regular human10 units IVP once cp 04:44 Drug: NS 0.9% IV 1000 ml IV at 1 bolus Per protocol; to be given as a bolus over 60 rg5 minutes Route: IV; Rate: 1 bolus; Site: right forearm; 05:45 Follow up: IV Status: Completed infusion; IV Intake: 1000ml rg5 Point of Care Testing: Blood Glucose: 05:45 Blood Glucose: 259 mg/dL; rg5 Ranges: Critical Glucose Levels:Adult <50 mg/dl or >400 mg/dl <40 mg/dl or >180 mg/dl Disposition Summary: 03/28/25 06:11 Discharge Ordered Notes: Location: Home cp Problem: new cp Symptoms: have improved cp Condition: Stable cp Diagnosis - Nausea with vomiting, unspecified cp - Abdominal pain, unspecified cp - Dorsalgia, unspecified cp - Calculus of kidney cp Followup: cp - With: Private Physician - When: 2 - 3 days - Reason: Worsening of condition Discharge Instructions: - Discharge Summary Sheet cp - Abdominal Pain, Adult cp - Kidney Stones cp - Musculoskeletal Pain cp - Nausea and Vomiting, Adult cp - Back Exercises cp Forms: - Medication Reconciliation Form cp - Antibiotic Education cp - Prescription Opioid Use cp - Patient Portal Instructions cp - Leadership Thank You Letter cp Prescriptions: - Anaprox DS 550 mg Oral Tablet - take 1 tablet ORAL route every 12 hours As needed; 20 tablet; Refills: 0, cp Product Selection Permitted - promethazine 25 mg Oral Tablet - take 1 tablet ORAL route every 6 hours As needed; 20 tablet; Refills: 0, cp Product Selection Permitted Signatures: Dispatcher [employer] EDMS Jw Beasley PA PA cp Able, Lacie, RN RN lg3 Stoney Valenzuela RN RN rg5 Tomsaa Stovall RN kd3 Corrections: (The following items were deleted from the chart) 01:58 01:58 CBC+H.LAB.BRZ ordered. EDMS EDMS 01:58 01:58 COMPREHENSIVE METABOLIC PANEL+C.LAB.BRZ ordered. EDMS EDMS 01:58 01:58 LIPASE+C.LAB.BRZ ordered. EDMS EDMS 01:58 01:58 Abdomen Pelvis W/Wo Con+CT.RAD.BRZ ordered. EDMS EDMS 04:43 04:40 Insulin Regular Human IVP 10 units IVP once ordered. cp cp
--- NOTE | 2025-03-28 06:17 | RAD REPORT ---
CLINICAL HISTORY: Right flank pain. COMPARISON: CT Abdomen Pelvis 10/22/2024. TECHNIQUE: CT ABDOMEN PELVIS WITHOUT THEN WITH IV CONTRAST on 03/28/2025 1:57 AM CDT This exam was performed according to our departmental dose-optimization program, which includes autom ated exposure control, adjustment of the mA and/or kV according to patient size and/or use of iterative reconstruction technique. FINDINGS: Lower lungs are clear. Abdomen: Liver is fatty in attenuation. There is no biliary dilatation. Gallbladder is normal in appe arance. The pancreas and spleen are normal in appearance. Adrenal glands are normal. Both kidneys are mildly atrophic. There are at least 4 right renal calculi with the largest measuring 12 mm. There is no hydronephrosis. Abdominal aorta is normal in course and caliber without aneurysm. There is no free air. There is no r etroperitoneal adenopathy. Pelvis: There is no bowel obstruction. Urinary bladder is unremarkable. There is no free fluid. Appen latasha is normal. Skeleton: There are no acute osseous findings. No suspicious bony lesions. IMPRESSION: Right nephrolithiasis without hydronephrosis. Electronically signed by: Rey Melendez MD 03/28/2025 06:04 AM CDT RP Due to temporary technical issues with the PACS/[employer] reporting system, reports are being mahnaz d by the in-house radiologist without review as a courtesy to ensure prompt reporting the interpreting radiologist is fully responsible for the content of the report. Transcribed Date/Time: 03/28/2025 6:17 AM
[2025-03-28 06:28] VITALS: TEMP 98.1
[2025-03-28 06:38] VITALS: BP 159/109; O2SAT 97
== END 2025-03-28 06:23 | disposition home or self-care (01) ==
LOC: ER 01:05
DX: N20.0 Calculus of kidney (principal); Z87.442 Personal history of urinary calculi; M54.9 Dorsalgia, unspecified; R10.31 Right lower quadrant pain; E11.9 Type 2 diabetes mellitus without complications; F17.210 Nicotine dependence, cigarettes, uncomplicated
CPT/HCPCS: 96361; 85025; 36415; 82947 ×3; 83690; 80053; 74178; 96375; 96374; 99284; Q9967; J2405 ×2; J1815; J7030 ×2

== ENCOUNTER 2025-07-04 01:06 | Emergency (ER) | payer OTHER ==
[2025-07-04 01:44] LABS: Absolute Lymphocytes (CBC) 2.8 K/uL (0.7-4.9); Hematocrit 49.3 % (39.6-49.0); Hemoglobin 17.8 g/dL (13.6-17.9); MCH 33.7 pg (27.0-35.0); MCHC 36.0 g/dL (32.0-36.0); MCV 93.7 fL (80-100); MPV 9.3 fL (7.6-11.3); Nucleated RBC Absolute Count 0.0 (0-0); Nucleated Red Blood Cells % 0.1 % (0-0); RBC Red Blood Cell Count 5.27 M/uL (4.33-5.43); White Blood Count 9.50 thou/uL (4.3-10.9)
[2025-07-04 01:57] LABS: Sqamous Epithelial <5 /HPF (None Seen); Urine Culture Reflex Order REFLEXED; Urine Microscopic Reflex YN ORDER UMIC; Urine Yeast (Budding) Trace /HPF (None Seen)
[2025-07-04 02:02] LABS: ALT/SGPT 38.0 U/L (16-61); AST/SGOT 17.0 U/L (15-37); Albumin 4.0 g/dL (3.4-5.0); Albumin/Globulin Ratio 1.1 (1.1-1.8); Alkaline Phosphatase 76.0 U/L (45-117); Anion Gap 14.7 mEq/L (5.0-15.0); BUN Blood Urea Nitrogen 17.0 mg/dL (7-18); Globulin 3.6 g/dL (2.3-3.5); Glucose Level 291.0 mg/dL (74-106); Potassium 3.7 mEq/L (3.5-5.1)
[2025-07-04] MEDS ORDERED: NA CHLORIDE 0.9% 1,000 ML ONE (02:06)
[2025-07-04] MEDS ORDERED: MORPHINE 4 MG/ML SYR ONE (02:29)
--- NOTE | 2025-07-04 03:13 | RAD REPORT ---
EXAM DESCRIPTION: Abdomen Pelvis Wo Contrast CLINICAL HISTORY: FLANK PAIN COMPARISON: 06/09/2025 TECHNIQUE: CT of the abdomen and pelvis without IV contrast. Evaluation of the solid organs and vascu lature is suboptimal due to lack of IV contrast. This exam was performed according to our departmental dose-optimization program, which includes automated exposure control, adjustment of the mA and/or kV according to patient size and/or use of iterative reconstruction technique. FINDINGS: Lung Bases: Mild dependent atelectasis. Abdomen: Liver: Normal contour. Diffuse decreased density with patchy areas of fatty sparing. No obvious mass within the limitations of noncontrast technique. Gallbladder: No calcified gallstones. Spleen, Pancreas, and Adrenal Glands: The spleen, pancreas, and adrenal glands are unremarkable. Kidneys: The kidneys have normal size without suspicious mass within the limitations of noncontrast t echnique. Multiple nonobstructing right renal calculi. No distal obstructing calculus. No hydronephrosis. Vasculature: The aorta and IVC have normal caliber and position. Stomach: The stomach and duodenum have normal course. Pelvis: Bowel: No dilated loops of large or small bowel. No significant acute inflammatory changes. Appendix: Normal appendix. Bladder: Decompressed. Reproductive: No suspicious mass. Other: No free intraperitoneal air. No free fluid or lymphadenopathy. Bones: No destructive bone lesions identified. IMPRESSION: 1. Nonobstructing right renal calculi. No hydronephrosis. 2. Hepatic steatosis. Electronically signed by: Flor Landry MD 07/04/2025 03:08 AM CDT RP Due to temporary technical issues with the PACS/[employer] reporting system, reports are being mahnaz d by the in-house radiologist without review as a courtesy to ensure prompt reporting the interpreting radiologist is fully responsible for the content of the report. Transcribed Date/Time: 07/04/2025 3:13 AM
--- NOTE | 2025-07-04 03:28 | ER ---
Nurse's Notes [facility] Name: Parker Miller Jr Age: 54 yrs Sex: Male : 1970 Arrival Date: 07/04/2025 Time: 01:06 Bed 14 Private MD: Diagnosis: Right Flank Pain;Essential (primary) hypertension;Chronic kidney disease, unspecified;Hyperglycemia, unspecified Presentation: 07/04 01:27 Chief complaint: Patient states: Pt c/o RLQ pain. Pt's last visit on June 09 dx with br2 kidney stone. Pain radiates to RLQ. Denies urinary symptoms. Coronavirus screen: Client denies travel out of the [place] in the last 14 days. Ebola Screen: Patient denies exposure to infectious person. Initial Sepsis Screen: Does the patient meet any 2 criteria? No. Patient's initial sepsis screen is negative. Does the patient have a suspected source of infection? No. Patient's initial sepsis screen is negative. 01:27 Method Of Arrival: Ambulatory br2 01:45 Acuity: LAKEISHA 3 [facility] 01:45 Risk Assessment: Do you want to hurt yourself or someone else? Patient reports no [facility] desire to harm self or others. 01:46 Onset of symptoms was July 03, 2025. [facility] Triage Assessment: 01:32 General: Appears in no apparent distress. comfortable, Behavior is calm, cooperative. br2 Pain: Complains of pain in right lower quadrant Pain radiates to right low back Pain currently is 10 out of 10 on a pain scale. Historical: - Allergies: 01:32 No Known Allergies; br2 - PMHx: 01:32 Diabetes - NIDDM; Kidney stones; neuropathy; br2 - PSHx: 01:32 Lithotripsy; br2 - Immunization history:: Adult Immunizations up to date. - Infectious Disease History:: Denies. - Social history:: Smoking status: Patient reports the use of cigarette tobacco products, smokes three packs cigarettes per day. Patient uses alcohol, but reports only rare drinking. Patient/guardian denies using street drugs. Screenin:44 [facility] ED Fall Risk Assessment (Adult) History of falling in the last 3 months, [facility] including since admission No falls in past 3 months (0 pts) Confusion or Disorientation No (0 pts) Intoxicated or Sedated No (0 pts) Impaired Gait No (0 pts) Mobility Assist Device Used No (0 pt) Altered Elimination No (0 pt) Score/Fall Risk Level 0 - 2 = Low Risk. Abuse screen: Denies threats or abuse. Denies injuries from another. Nutritional screening: No deficits noted. Tuberculosis screening: No symptoms or risk factors identified. Assessment: 01:43 General: Appears in no apparent distress. comfortable, obese, well groomed, well hm5 developed, well nourished, Behavior is calm, cooperative. Pain: Complains of pain in back and right low back and abdomen and right lower quadrant. Neuro: No deficits noted. Cardiovascular: No deficits noted. Respiratory: No deficits noted. GI: Reports lower abdominal pain, nausea, vomiting. : No deficits noted. No signs and/or symptoms were reported regarding the genitourinary system. EENT: No deficits noted. No signs and/or symptoms were reported regarding the EENT system. Derm: No deficits noted. No signs and/or symptoms reported regarding the dermatologic system. Musculoskeletal: No deficits noted. No signs and/or symptoms reported regarding the musculoskeletal system. 01:45 GI: Bowel sounds present X 4 quads. Abd is soft and non tender X 4 quads. hm5 03:39 Reassessment: Patient appears in no apparent distress at this time. Patient and/or bm8 family updated on plan of care and expected duration. Pain level reassessed. Patient is alert, oriented x 3, equal unlabored respirations, skin warm/dry/pink. Vital Signs: 01:27 BP 126 / 99; Pulse 90; Resp 20; Temp 97.1; Pulse Ox 96% on R/A; Weight 99.79 kg; Height br2 5 ft. 9 in. ; Pain 10/10; 02:36 BP 134 / 102; Pulse 89; Resp 18; Pulse Ox 96% on R/A; hm5 03:26 Pulse 81; Resp 18; Pulse Ox 96% on R/A; hm5 01:27 Body Mass Index 32.49 (99.79 kg, 175.26 cm) br2 01:27 Pain Scale: Adult br2 ED Course: 01:08 Patient arrived in ED. jj6 01:10 Reginaldo Coleman DO is Attending Physician. ms3 01:19 Paige Goyal, ANALY is Primary Nurse. hm5 01:31 CBC with Diff Sent. vk 01:31 CMP Sent. vk 01:31 Initial lab(s) drawn, by me, sent to lab. Inserted saline lock: 18 gauge in left vk forearm, using aseptic technique. Blood collected. Flushed with 10 mL NS. 01:32 Arm band placed on right wrist. br2 01:44 CT Abd/Pelvis - Without Contrast In Process Unspecified. EDMS 01:45 Triage completed. hm5 01:45 No provider procedures requiring assistance completed. hm5 01:45 Patient has correct armband on for positive identification. Bed in low position. Call [facility] light in reach. Side rails up X 1. Provided Education on: plan of care. 02:26 Urine Culture Sent. hm5 03:27 En Fitzpatrick DO is Referral Physician. ms3 03:39 IV discontinued, intact, bleeding controlled, No redness/swelling at site. Pressure bm8 dressing applied. Administered Medications: 02:09 Drug: NS 0.9% IV 1000 ml IV at 1 bolus Per protocol; to be given as a bolus over 60 5 minutes Route: IV; Rate: 1 bolus; Site: left forearm; 03:39 Follow up: Response: No adverse reaction; IV Status: Completed infusion bm8 02:24 CANCELLED (Physician Discretion): [id number] mg 10 mg IVP once ms3 02:34 Drug: morphine IVP or IV 4 mg IVP once over 4 mins Route: IVP; Infused Over: 4 mins; 5 Site: left forearm; 03:11 Follow up: Response: No adverse reaction; Pain is decreased hm5 03:39 Drug: Ondansetron IVP 4 mg IVP once; over 2 minutes Route: IVP; Site: left forearm; bm8 03:39 Follow up: Response: No adverse reaction bm8 Medication: 01:45 VIS not applicable for this client. 5 Outcome: 03:28 Discharge ordered by MD. ms3 03:39 Discharged to home ambulatory, with family, bm8 03:39 Condition: stable 03:39 Discharge instructions given to patient, family, Instructed on discharge instructions, follow up and referral plans. safety practices, Demonstrated understanding of instructions, follow-up care, medications, 03:40 Patient left the ED. bm8 Signatures: Dispatcher [employer] EDIN Reginaldo Coleman DO DO ms3 Lein Madison jj6 Maggie Downs Brad, RN RN bm8 Jana Gonzalez, ANALY RN br2 Paige Goyal RN RN hm5 Corrections: (The following items were deleted from the chart) 03:30 03:26 Pulse 81bpm; Resp 81bpm; Pulse Ox 96% RA; hm5 hm5
--- NOTE | 2025-07-04 03:29 | EDPHYS ---
Physician Documentation [facility] Name: Parker Miller Jr Age: 54 yrs Sex: Male : 1970 Arrival Date: 07/04/2025 Time: 01:06 Bed 14 Private MD: ED Physician Reginaldo Coleman HPI: 07/04 01:28 This 54 yrs old Male presents to ER via Unassigned with complaints of Possible Kidney ms3 Stone, Nausea/Vomiting. 01:28 54-year-old male with past medical history of kidney stones, hypertension, diabetes, ms3 hyperlipidemia presents to the emergency department for sharp shooting right flank pain that he rates 10/10. Patient was seen in May for similar symptoms.. Historical: - Allergies: :32 No Known Allergies; br2 - PMHx: :32 Diabetes - NIDDM; Kidney stones; neuropathy; br2 - PSHx: :32 Lithotripsy; br2 - Immunization history:: Adult Immunizations up to date. - Infectious Disease History:: Denies. - Social history:: Smoking status: Patient reports the use of cigarette tobacco products, smokes three packs cigarettes per day. Patient uses alcohol, but reports only rare drinking. Patient/guardian denies using street drugs. ROS: 01:28 Constitutional: Negative for fever, and chills. Cardiovascular: Negative for chest ms3 pain, and palpitations. Respiratory: Negative for shortness of breath, cough, wheezing, and pleuritic chest pain, :28 Skin: Negative for injury, rash, and discoloration, :28 Abdomen/GI: Positive for Flank pain, Exam: 01:28 Constitutional: This is a well developed, well nourished patient who is awake, alert, ms3 and in no acute distress. Cardiovascular: Regular rate and rhythm with a normal S1 and S2. No gallops, murmurs, or rubs. Normal PMI, no JVD. No pulse deficits. Respiratory: Lungs have equal breath sounds bilaterally, clear to auscultation and percussion. No rales, rhonchi or wheezes noted. No increased work of breathing, no retractions or nasal flaring. 01:28 Skin: Warm, dry with normal turgor. Normal color with no rashes, no lesions, and no evidence of cellulitis. 01:28 Abdomen/GI: Inspection: abdomen appears normal, Bowel sounds: normal, Palpation: abdomen is soft and non-tender, Vital Signs: 01:27 BP 126 / 99; Pulse 90; Resp 20; Temp 97.1; Pulse Ox 96% on R/A; Weight 99.79 kg; Height br2 5 ft. 9 in. ; Pain 10/10; 02:36 BP 134 / 102; Pulse 89; Resp 18; Pulse Ox 96% on R/A; hm5 03:26 Pulse 81; Resp 18; Pulse Ox 96% on R/A; hm5 01:27 Body Mass Index 32.49 (99.79 kg, 175.26 cm) br2 01:27 Pain Scale: Adult br2 MDM: 01:22 Medical Screening Exam initiated ms3 01:28 Differential diagnosis: Nonspecific abd pain, Ureterolithiasis vs Pyelonephritis. ms3 03:29 Data reviewed: vital signs, nurses notes, lab test result(s), radiologic studies, and ms3 as a result, I will discharge patient. I considered the following discharge prescriptions or medication management in the emergency department Medications were administered in the Emergency Department. See MAR. Independent interpretation of the following test(s) in the Emergency Department CT Scan: My interpretation is CT abdomen pelvis images reviewed by me revealed stones in right kidney. No hydronephrosis noted. Counseling: I had a detailed discussion with the patient and/or guardian regarding the historical points, exam findings, and any diagnostic results supporting the discharge/admit diagnosis, lab results, radiology results, the need for outpatient follow up, to return to the emergency department if symptoms worsen or persist or if there are any questions or concerns that arise at home. Special discussion: Based on the patient's Hx, exam, and Dx evaluation, there is no indication for emergent surgery or inpatient Tx. It is understood by the patient/guardian that if the Sx's persist or worsen they need to return immediately for re-evaluation. ED course: On reevaluation patient symptoms improved, patient is alert and oriented x 4, no apparent distress, nontoxic-appearing, speaking full sentences. Patient to follow-up with primary care physician in 2 to 3 days. Patient understands and agrees with plan. All questions were answered. Return precautions discussed include worsening symptoms, or any other concerns.. 07/04 01:11 Order name: CBC with Diff; Complete Time: 02:23 ms3 07/04 01:11 Order name: CMP; Complete Time: 02:23 ms3 07/04 01:33 Order name: UA Rfx Luis Cult if indicated; Complete Time: 02: ms3 07/04 02:00 Order name: Urine Culture EDMS 07/04 01:11 Order name: CT Abd/Pelvis - Without Contrast ms3 07/04 01:11 Order name: IV Saline Lock; Complete Time: 01: ms3 07/04 01:11 Order name: Labs collected and sent; Complete Time: : ms3 Administered Medications: 02:09 Drug: NS 0.9% IV 1000 ml IV at 1 bolus Per protocol; to be given as a bolus over 60 hm5 minutes Route: IV; Rate: 1 bolus; Site: left forearm; 03:39 Follow up: Response: No adverse reaction; IV Status: Completed infusion bm8 02:24 CANCELLED (Physician Discretion): [id number] mg 10 mg IVP once ms3 02:34 Drug: morphine IVP or IV 4 mg IVP once over 4 mins Route: IVP; Infused Over: 4 mins; hm5 Site: left forearm; 03:11 Follow up: Response: No adverse reaction; Pain is decreased hm5 03:39 Drug: Ondansetron IVP 4 mg IVP once; over 2 minutes Route: IVP; Site: left forearm; bm8 03:39 Follow up: Response: No adverse reaction bm8 Disposition Summary: 07/04/25 03:28 Discharge Ordered Notes: Location: Home ms3 Condition: Stable ms3 Diagnosis - Right Flank Pain ms3 - Essential (primary) hypertension ms3 - Chronic kidney disease, unspecified ms3 - Hyperglycemia, unspecified ms3 Followup: ms3 - With: En Fitzpatrick DO - When: 2 - 3 days - Reason: Recheck today's complaints Discharge Instructions: - Discharge Summary Sheet ms3 - Hyperglycemia ms3 - Hypertension, Adult ms3 - DASH Eating Plan ms3 Forms: - Medication Reconciliation Form ms3 - Antibiotic Education ms3 - Prescription Opioid Use ms3 - Patient Portal Instructions ms3 - Leadership Thank You Letter ms3 Signatures: Dispatcher [employer] EDKS Reginaldo Coleman DO DO ms3 Abelardo Lemons RN RN bm8 Jana Gonzalez RN RN br2 Goyal, Paige, RN RN hm5 Corrections: (The following items were deleted from the chart) 01:11 01:11 Abdomen Pelvis Wo Con+CT.RAD.BRZ ordered. EDMS EDMS 02:24 02:23 Ketorolac IVP 10 mg 10 mg IVP once ordered. ms3 ms3
[2025-07-04] MEDS ORDERED: ONDANSETRON 4 MG/2 ML VIAL ONE (03:34)
[2025-07-04 12:12] VITALS: TEMP 97.1; O2SAT 96
[2025-07-04 12:14] VITALS: BP 134/102
== END 2025-07-04 03:40 | disposition home or self-care (01) ==
LOC: ER 01:06
DX: R10.31 Right lower quadrant pain (principal); E11.22 Type 2 diabetes mellitus with diabetic chronic kidney disease; E11.65 Type 2 diabetes mellitus with hyperglycemia; I12.9 Hypertensive chronic kidney disease with stage 1 through stage 4 chronic kidney disease, or unspecified chronic kidney disease; N18.9 Chronic kidney disease, unspecified; F17.210 Nicotine dependence, cigarettes, uncomplicated; Z87.442 Personal history of urinary calculi
CPT/HCPCS: 96361; 87088; 85025; 81001; 87086; 36415; 80053; 74176; 96375; 96374; 99284; J2405; J7030

== ENCOUNTER 2025-08-18 19:29 | Emergency (ER) | payer OTHER ==
--- NOTE | 2025-08-18 21:27 | RAD REPORT ---
EXAMINATION: US LEFT LOWER EXTREMITY VENOUS DOPPLER CLINICAL INDICATION: [facility] MAIN left leg pain PAIN Bed Name: [id number] Y TECHNIQUE: Complete bilateral duplex sonography of the LEFT lower extremity veins was performed. The examination included compression for vein patency, color Doppler imaging and flow augmentation in response to distal compression of the distal external iliac, common femoral, femoral, popliteal, tibi al, and great and small saphenous veins. COMPARISON: No prior exam. FINDINGS: Duplex sonography testing of the veins of the LEFT lower extremity was performed. Color flow imaging shows all veins to be compressible with [id number] color filling. Pulsatile and phasic flow is present within all lower extremity deep and superficial veins examined. IMPRESSION: No evidence of deep venous thrombosis.
[2025-08-18] MEDS ORDERED: KETOROLAC 30 MG/ML INJ ONE (21:40)
--- NOTE | 2025-08-18 22:03 | EDPHYS ---
Physician Documentation [facility] Name: Parker Miller Jr Age: 55 yrs Sex: Male : 1970 Arrival Date: 08/18/2025 Time: 19:29 Bed 26 Private MD: ED Physician Jayson Queen HPI: 08/18 20:00 This 55 yrs old Male presents to ER via Ambulatory with complaints of Leg Pain. kb 20:00 Patient is a 55-year-old male who presents for pain down medial aspect of left leg that kb started 3 to 4 days ago. Denies injury or trauma.. Historical: - Allergies: 19:49 No Known Allergies; dd2 - PMHx: 19:49 Diabetes - NIDDM; Kidney stones; neuropathy; dd2 - PSHx: 19:49 Lithotripsy; dd2 - Immunization history:: Adult Immunizations unknown. - Infectious Disease History:: Denies. - Social history:: Smoking status: Patient reports the use of cigarette tobacco products, smokes one pack cigarettes per day. ROS: 19:59 Constitutional: As per HPI kb Exam: 19:59 Constitutional: This is a well developed, well nourished patient who is awake, alert, kb and in no acute distress. Head/Face: Normocephalic, atraumatic. ENT: Moist Mucous membranes Cardiovascular: Regular rate Respiratory: Respirations even and unlabored. No increased work of breathing. Talking in full sentences Skin: Warm, dry with normal turgor. Normal color. MS/ Extremity: Pulses equal, no cyanosis. Neurovascular intact. Full, normal range of motion. Neuro: Awake and alert, GCS 15, oriented to person, place, time, and situation. Vital Signs: 19:49 BP 136 / 99; Pulse 96; Resp 16; Temp 97.9; Pulse Ox 100% on R/A; Weight 102.06 kg; Pain dd2 9/10; 21:23 BP 144 / 108; Pulse 89; Resp 17; Pulse Ox 96% ; jj7 22:12 BP 117 / 80; Pulse 94; Resp 18; Temp 98.1; Pulse Ox 98% ; jj7 19:49 Pain Scale: Adult dd2 MDM: 19:32 Medical Screening Exam initiated kb 20:01 Differential diagnosis: DVT, strain, tendinitis. Data reviewed: vital signs, nurses kb notes. 22:02 Counseling: I had a detailed discussion with the patient and/or guardian regarding the kb historical points, exam findings, and any diagnostic results supporting the discharge/admit diagnosis, radiology results, the need for outpatient follow up, a family practitioner, to return to the emergency department if symptoms worsen or persist or if there are any questions or concerns that arise at home. 08/18 19:45 Order name: US Extremity Venous Unilateral Ltd; Complete Time: 21:36 kb Administered Medications: 21:43 Drug: Ketorolac IM 30 mg IM once Route: IM; Site: right deltoid; jj7 22:11 Follow up: Response: No change in condition jj7 22:11 Drug: HYDROcodone-acetaminophen PO 5 mg-325 mg 1 tabs PO once Route: PO; jj7 22:11 Follow up: Response: No adverse reaction jj7 Disposition: 08/19 04:35 Co-signature as Attending Physician, Jayson Queen DO I agree with the assessment and tt7 plan of care. Disposition Summary: 08/18/25 22:02 Discharge Ordered Notes: Location: Home kb Condition: Stable kb Diagnosis - Pain in left leg kb Followup: kb - With: Emergency Department - When: As needed - Reason: Worsening of condition Followup: kb - With: Private Physician - When: 2 - 3 days - Reason: Recheck today's complaints, Continuance of care, Re-evaluation by your physician Discharge Instructions: - Discharge Summary Sheet kb - Musculoskeletal Pain kb - Muscle Strain, [id number] kb Forms: - Medication Reconciliation Form kb - Antibiotic Education kb - Prescription Opioid Use kb - Patient Portal Instructions kb - Leadership Thank You Letter kb Signatures: Dispatcher [employer] Felicitas Lutz, MUSIC SOUND LIGHT TECHNICIAN-C MUSIC SOUND LIGHT TECHNICIAN-Artie Olivares RN RN jj7 TRAVIS MONREAL RN RN dd2 Jayson Queen DO DO tt7
--- NOTE | 2025-08-18 22:03 | ER ---
Nurse's Notes [facility] Name: Parker Miller Jr Age: 55 yrs Sex: Male : 1970 Arrival Date: 08/18/2025 Time: 19:29 Bed 26 Private MD: Diagnosis: Pain in left leg Presentation: 08/18 19:48 Chief complaint: Patient states: PAIN TO BOTH LEGS, WORSE IN THE LEFT LEG THAT BEGAN 4 dd2 DAYS AGO. Coronavirus screen: At this time, the client does not indicate any symptoms associated with coronavirus-19. Ebola Screen: No symptoms or risks identified at this time. Risk Assessment: Do you want to hurt yourself or someone else? Patient reports no desire to harm self or others. Onset of symptoms was August 14, 2025. 19:48 Method Of Arrival: Ambulatory dd2 19:48 Acuity: LAKEISHA 3 dd2 19:49 Initial Sepsis Screen: Does the patient meet any 2 criteria? No. Patient's initial dd2 sepsis screen is negative. Does the patient have a suspected source of infection? No. Patient's initial sepsis screen is negative. Triage Assessment: 19:49 General: Appears in no apparent distress. uncomfortable, Behavior is calm, cooperative, dd2 appropriate for age. Pain: Complains of pain in right leg and left leg. 19:49 Musculoskeletal: Circulation, motion, and sensation intact. Range of motion: intact in dd2 all extremities. Historical: - Allergies: 19:49 No Known Allergies; dd2 - PMHx: 19:49 Diabetes - NIDDM; Kidney stones; neuropathy; dd2 - PSHx: 19:49 Lithotripsy; dd2 - Immunization history:: Adult Immunizations unknown. - Infectious Disease History:: Denies. - Social history:: Smoking status: Patient reports the use of cigarette tobacco products, smokes one pack cigarettes per day. Screenin:23 [facility] ED Fall Risk Assessment (Adult) History of falling in the last 3 months, jj7 including since admission No falls in past 3 months (0 pts) Confusion or Disorientation No (0 pts) Intoxicated or Sedated No (0 pts) Impaired Gait No (0 pts) Mobility Assist Device Used No (0 pt) Altered Elimination No (0 pt) Score/Fall Risk Level 0 - 2 = Low Risk Oriented to surroundings, Maintained a safe environment, Educated pt \T\ family on fall prevention, incl call for assistance when getting out of bed, Assessed \T\ reinforced patient's understanding of fall precautions. Abuse screen: Denies threats or abuse. Nutritional screening: No deficits noted. Tuberculosis screening: No symptoms or risk factors identified. Assessment: 21:23 Reassessment: ASSUMED CARE OF PT. PT LYING IN BED. NO DISTRESS NOTED. General: Appears jj7 in no apparent distress. comfortable, Behavior is calm, cooperative, appropriate for age. Pain: Complains of pain in right leg and left leg. Neuro: Reports numbness in right leg and left leg paresthesias in right leg and left leg. Cardiovascular: No deficits noted. Respiratory: No deficits noted. GI: No deficits noted. : No deficits noted. EENT: No deficits noted. Derm: No deficits noted. Vital Signs: 19:49 BP 136 / 99; Pulse 96; Resp 16; Temp 97.9; Pulse Ox 100% on R/A; Weight 102.06 kg; Pain dd2 9/10; 21:23 BP 144 / 108; Pulse 89; Resp 17; Pulse Ox 96% ; jj7 22:12 BP 117 / 80; Pulse 94; Resp 18; Temp 98.1; Pulse Ox 98% ; jj7 19:49 Pain Scale: Adult dd2 ED Course: 19:31 Patient arrived in ED. mr 19:32 Arnoldo FelicitasDAVE huynh is PHCP. kb 19:32 Jayson Queen DO is Attending Physician. kb 19:48 Triage completed. dd2 19:49 Arm band placed on right wrist. dd2 20:45 US Extremity Venous Unilateral Ltd In Process Unspecified. EDMS 21:08 Artie Doty, ANALY is Primary Nurse. jj7 21:23 Patient has correct armband on for positive identification. Bed in low position. Call jj7 light in reach. Side rails up X2. Provided Education on: USE OF CALL GARCIA. Client placed on continuous cardiac and pulse oximetry monitoring. NIBP monitoring applied. Warm blanket given. 22:12 No provider procedures requiring assistance completed. Patient did not have IV access jj7 during this emergency room visit. Administered Medications: 21:43 Drug: Ketorolac IM 30 mg IM once Route: IM; Site: right deltoid; jj7 22:11 Follow up: Response: No change in condition jj7 22:11 Drug: HYDROcodone-acetaminophen PO 5 mg-325 mg 1 tabs PO once Route: PO; jj7 22:11 Follow up: Response: No adverse reaction jj7 Medication: 21:23 VIS not applicable for this client. jj7 Outcome: 22:02 Discharge ordered by MD. miranda 22:12 Discharged to home ambulatory, jj7 22:12 Condition: good 22:12 Discharge instructions given to patient, Instructed on discharge instructions, follow up and referral plans. Demonstrated understanding of instructions, follow-up care, 22:13 Patient left the ED. jj7 Signatures: Dispatcher [employer] EDMS Felicitas Mclaughlin, PHILIPP-C GOLD PLATER-Roberta Dean, Artie Caicedo, RN RN jj7 TRAVIS MONREAL RN RN dd2
[2025-08-18] MEDS ORDERED: HYDROCODONE/APAP 5/325 MG TAB ONE (22:08)
[2025-08-18 22:57] VITALS: BP 117/80; TEMP 98.1; O2SAT 98
== END 2025-08-18 22:13 | disposition home or self-care (01) ==
LOC: ER 19:29
DX: M79.605 Pain in left leg (principal); E11.9 Type 2 diabetes mellitus without complications; F17.210 Nicotine dependence, cigarettes, uncomplicated; G62.9 Polyneuropathy, unspecified
CPT/HCPCS: 93971; 96372; 99284; J1885

== ENCOUNTER 2025-09-16 23:58 | Emergency (ER) | payer OTHER ==
[2025-09-17] MEDS ORDERED: DIAZEPAM 10 MG/2 ML INJ SYRINGE ONE (02:10)
[2025-09-17] MEDS ORDERED: HYDROCODONE/APAP 7.5/325 MG TAB ONE (02:11)
[2025-09-17] MEDS ORDERED: KETOROLAC 30 MG/ML INJ ONE (02:11)
[2025-09-17] MEDS ORDERED: GABAPENTIN 300 MG CAP ONE (02:11)
--- NOTE | 2025-09-17 03:06 | EDPHYS ---
Physician Documentation [facility] Name: Parker Miller Jr Age: 55 yrs Sex: Male : 1970 Arrival Date: 09/16/2025 Time: 23:58 Bed 20 Private MD: ED Physician Colton Ruvalcaba HPI: 09/17 00:20 This 55 yrs old Male presents to ER via Ambulatory with complaints of Leg Pain. cp 00:20 The patient presents with pain. cp 00:20 The complaints affect the left foot and left leg. Context: resulted from an unknown cp cause, the patient can fully bear weight, the patient is able to ambulate, with mild difficulty. Onset: The symptoms/episode began/occurred for over 1 month. Associated signs and symptoms: Pertinent positives: calf tenderness, Pertinent negatives fever, warmth, edema, chest pain, abdominal pain, shortness of breath. Treatment prior to arrival includes: no previous treatment. Historical: - Allergies: 00:01 No Known Allergies; ha1 - PMHx: 00:01 Diabetes - NIDDM; Kidney stones; neuropathy; ha1 - PSHx: 00:01 Lithotripsy; ha1 - Immunization history:: Adult Immunizations not up to date. - Infectious Disease History:: Denies. - Social history:: Smoking status: Patient reports the use of cigarette tobacco products, smokes one-half pack cigarettes per day. ROS: 00:25 MS/extremity: Positive for pain, of the left foot and left leg, Negative for injury or cp acute deformity, decreased range of motion, paresthesias, 00:25 Eyes: Negative for injury, pain, redness, and discharge, cp 00:25 Constitutional: Negative for body aches, chills, fever, poor PO intake, 00:25 Neck: Negative for injury or acute deformity, pain with movement, pain at rest, 00:25 Cardiovascular: Negative for chest pain, edema, palpitations, 00:25 Respiratory: Negative for cough, shortness of breath, wheezing, 00:25 Abdomen/GI: Negative for abdominal pain, nausea, vomiting, and diarrhea, 00:25 Back: Negative for injury or acute deformity, pain at rest, pain with movement, Exam: 00:30 Constitutional: The patient appears in no acute distress, alert, awake, non-toxic, well cp developed, well nourished, uncomfortable, 00:30 Head/Face: Normocephalic, atraumatic. cp 00:30 Eyes: Periorbital structures: appear normal, Conjunctiva: normal, no exudate, no injection, Sclera: no appreciated abnormality, Lids and lashes: appear normal, bilaterally, 00:30 ENT: External ear(s): are unremarkable, Nose: is normal, Mouth: Lips: moist, Oral mucosa: moist, Posterior pharynx: Airway: no evidence of obstruction, patent, 00:30 Chest/axilla: Inspection: normal, 00:30 Cardiovascular: Rate: normal, Pulses: Pulses are 2+ in left dorsalis pedis artery. Edema: is not appreciated, JVD: is not appreciated, 00:30 Respiratory: the patient does not display signs of respiratory distress, Respirations: normal, no use of accessory muscles, no retractions, labored breathing, is not present, Breath sounds: are clear throughout, no decreased breath sounds, no stridor, no wheezing, 00:30 Abdomen/GI: Inspection: abdomen appears normal, Palpation: abdomen is soft and non-tender, in all quadrants, 00:30 Back: pain, is absent, ROM is normal, 00:30 Musculoskeletal/extremity: Extremities: noted in the left leg: tenderness, There is no evidence of decreased ROM, deformity, erythema, swelling, noted in the mid lateral side of left foot: pain, tenderness, no evidence of decreased ROM, deformity, erythema, 00:30 Neuro: Orientation: to person, place \T\ time. Mentation: is normal, Vital Signs: 00:01 BP 134 / 91; Pulse 94; Resp 18 S; Temp 98.2; Pulse Ox 99% on R/A; Weight 99.79 kg; ha1 Height 5 ft. 9 in. ; Pain 10/10; 02:13 BP 136 / 89; Pulse 69; Resp 17; Pulse Ox 97% on R/A; Pain 6/10; tb4 03:18 BP 138 / 84; Pulse 71; Resp 19; Pulse Ox 100% on R/A; Pain 3/10; tb4 00:01 Body Mass Index 32.49 (99.79 kg, 175.26 cm) ha1 00:01 Pain Scale: Adult ha1 02:13 Pain Scale: Adult tb4 03:18 Pain Scale: Adult tb4 MDM: 00:05 Medical Screening Exam initiated cp 03:05 Data reviewed: vital signs, nurses notes, radiologic studies, plain films, ultrasound, cp and as a result, I will discharge patient. 03:05 Differential diagnosis: closed fracture, contusion, sprain, cellulitis, DVT. I cp considered the following discharge prescriptions or medication management in the emergency department Medications were administered in the Emergency Department. See MAR. Independent interpretation of the following test(s) in the Emergency Department X-Ray: My interpretation is images of left foot negative for fracture and images of left tib/fib negative for fracture. Test considered but Not performed: CT: lower extremity. Care significantly affected by the following chronic conditions: Diabetes. Counseling: I had a detailed discussion with the patient and/or guardian regarding the historical points, exam findings, and any diagnostic results supporting the discharge/admit diagnosis, radiology results, the need for outpatient follow up, a family practitioner, to return to the emergency department if symptoms worsen or persist or if there are any questions or concerns that arise at home. Response to treatment: the patient's symptoms have mildly improved after treatment, and as a result, I will discharge patient. 09/17 00:16 Order name: US Extremity Venous Unilateral Ltd cp 09/17 00:16 Order name: Lower Extremity Artery Uni Ltd cp 09/17 02:11 Order name: XRAY Foot LEFT 3 View cp 09/17 02:11 Order name: XRAY Tib Fib LEFT cp Administered Medications: 02:21 Drug: Gabapentin PO 300 mg PO once Route: PO; tb4 02:58 Follow up: Response: No adverse reaction tb4 02:21 Drug: Diazepam IM 5 mg IM once Route: IM; Site: left deltoid; tb4 02:58 Follow up: Response: No adverse reaction; Anxiety decreased; RASS: Alert and Calm (0) tb4 02:21 Drug: Hydrocodone-Acetaminophen PO (7.5 mg-325 mg) 1 tabs PO once; RASS on ADMIN: tb4 Combtv4, Very Agttd3, Agttd2, Rstlss1, AlertClm0, Drwsy-1, Lt Sdtn-2, Mod Sdtn-3, Dp Sdtn-4, UnArsble-5 Route: PO; 02:57 Follow up: Response: No adverse reaction; Pain is decreased; RASS: Alert and Calm (0) tb4 02:22 Drug: Ketorolac IM 30 mg IM once Route: IM; Site: right deltoid; tb4 02:58 Follow up: Response: No adverse reaction; Pain is decreased tb4 Disposition: 21:48 Co-signature as Attending Physician, Colton Ruvalcaba MD I agree with the assessment sp4 and plan of care. I reviewed the patient's care provided by Advanced Practice Provider \T\ agree w/ the diagnosis \T\ care plan. I personally saw the pt \T\ performed a substantive portion of the visit, incldng all aspects of the (History/Exam/Medical Decision Making). Disposition Summary: 09/17/25 03:06 Discharge Ordered Notes: Location: Home cp Problem: new cp Symptoms: have improved cp Condition: Stable cp Diagnosis - Pain in left leg cp - Pain in left ankle and joints of left foot cp Followup: cp - With: Private Physician - When: 2 - 3 days - Reason: Recheck today's complaints Discharge Instructions: - Discharge Summary Sheet cp - Musculoskeletal Pain cp - Ankle Pain cp - Foot Pain cp Forms: - Medication Reconciliation Form cp - Antibiotic Education cp - Prescription Opioid Use cp - Patient Portal Instructions cp - Leadership Thank You Letter cp Prescriptions: - meloxicam 7.5 mg Oral tablet - take 1 tablet ORAL route every 12 hours; 30 tablet; Refills: 0, Product cp Selection Permitted - Neurontin 300 mg Oral capsule - take 1 capsule ORAL route every 12 hours; 30 capsule; Refills: 0, Product cp Selection Permitted Signatures: Dispatcher [employer] EDMS Jw Beasley PA-C PA-C cp Jovana Joseph RN RN ha1 Colton Ruvalcaba MD MD sp4 Moni Gonzales RN RN tb4 Corrections: (The following items were deleted from the chart) 02:11 02:11 Foot Left 3 View+RAD.RAD.BRZ ordered. EDMS EDMS 02:11 02:11 Tib Fib Left+RAD.RAD.BRZ ordered. EDMS EDMS
--- NOTE | 2025-09-17 03:06 | ER ---
Nurse's Notes [facility] Name: Parker Miller Jr Age: 55 yrs Sex: Male : 1970 Arrival Date: 09/16/2025 Time: 23:58 Bed 20 Private MD: Diagnosis: Pain in left leg;Pain in left ankle and joints of left foot Presentation: 09/17 00:01 Chief complaint: Patient states: LEFT LEG PAIN THAT BEEN GOING ON FOR A MONTH. ha1 00:01 Coronavirus screen: Client denies travel out of the [place] in the last 14 days. Ebola ha1 Screen: No symptoms or risks identified at this time. Initial Sepsis Screen: Does the patient meet any 2 criteria? No. Patient's initial sepsis screen is negative. Does the patient have a suspected source of infection? No. Patient's initial sepsis screen is negative. Risk Assessment: Do you want to hurt yourself or someone else? Patient reports no desire to harm self or others. Onset of symptoms was September 17, 2025. 00:01 Method Of Arrival: Ambulatory ha1 00:01 Acuity: [place] 4 ha1 Triage Assessment: 00:01 General: Appears uncomfortable, Behavior is calm, cooperative. Pain: Complains of pain ha1 in left leg Pain currently is 10 out of 10 on a pain scale. Quality of pain is described as aching. Neuro: Level of Consciousness is awake, alert, obeys commands, Oriented to person, place, time, situation. Cardiovascular: Capillary refill < 3 seconds Patient's skin is warm and dry. Respiratory: Airway is patent Respiratory effort is even, unlabored, Respiratory pattern is regular, symmetrical. GI: No signs and/or symptoms were reported involving the gastrointestinal system. Derm: Skin is pink, warm \T\ dry. Historical: - Allergies: 00:01 No Known Allergies; ha1 - PMHx: 00:01 Diabetes - NIDDM; Kidney stones; neuropathy; ha1 - PSHx: 00:01 Lithotripsy; ha1 - Immunization history:: Adult Immunizations not up to date. - Infectious Disease History:: Denies. - Social history:: Smoking status: Patient reports the use of cigarette tobacco products, smokes one-half pack cigarettes per day. Screenin:26 [facility] ED Fall Risk Assessment (Adult) History of falling in the last 3 months, ha1 including since admission No falls in past 3 months (0 pts) Confusion or Disorientation No (0 pts) Intoxicated or Sedated No (0 pts) Impaired Gait Yes (1 pt) Mobility Assist Device Used Yes (1 pt) Altered Elimination No (0 pt) Score/Fall Risk Level 0 - 2 = Low Risk Oriented to surroundings, Maintained a safe environment, Educated pt \T\ family on fall prevention, incl call for assistance when getting out of bed, Hourly rounding (assess needs \T\ fall precautionary measures) done. Abuse screen: Denies threats or abuse. Denies injuries from another. Nutritional screening: No deficits noted. Tuberculosis screening: No symptoms or risk factors identified. Assessment: 02:55 General: Appears comfortable, Behavior is calm, cooperative. Pain: Complains of pain in tb4 left leg Pain does not radiate. Pain currently is 5 out of 10 on a pain scale. Quality of pain is described as crampy, Pain began gradually. Neuro: Level of Consciousness is awake, alert, obeys commands, Oriented to person, place, time, situation, Moves all extremities. Full function Gait is steady, Speech is normal, Facial symmetry appears normal. Cardiovascular: Patient's skin is warm and dry. Respiratory: Airway is patent Respiratory effort is even, unlabored, Respiratory pattern is regular, symmetrical. GI: No deficits noted. No signs and/or symptoms were reported involving the gastrointestinal system. : No deficits noted. No signs and/or symptoms were reported regarding the genitourinary system. EENT: No deficits noted. No signs and/or symptoms were reported regarding the EENT system. Derm: No deficits noted. No signs and/or symptoms reported regarding the dermatologic system. Skin is intact, is healthy with good turgor, Skin is dry, Skin is normal, Skin temperature is warm. Musculoskeletal: No deficits noted. No signs and/or symptoms reported regarding the musculoskeletal system. Circulation, motion, and sensation intact. Range of motion: intact in all extremities. 03:11 Reassessment: Patient is alert, oriented x 3, equal unlabored respirations, skin tb4 warm/dry/pink. Patient states feeling better. Vital Signs: 00:01 BP 134 / 91; Pulse 94; Resp 18 S; Temp 98.2; Pulse Ox 99% on R/A; Weight 99.79 kg; ha1 Height 5 ft. 9 in. ; Pain 10/10; 02:13 BP 136 / 89; Pulse 69; Resp 17; Pulse Ox 97% on R/A; Pain 6/10; tb4 03:18 BP 138 / 84; Pulse 71; Resp 19; Pulse Ox 100% on R/A; Pain 3/10; tb4 00:01 Body Mass Index 32.49 (99.79 kg, 175.26 cm) ha1 00:01 Pain Scale: Adult ha1 02:13 Pain Scale: Adult tb4 03:18 Pain Scale: Adult tb4 ED Course: 00:00 Patient arrived in ED. im 00:05 Jw Beasley PA-C is PHCP. cp 00:05 Colton Ruvalcaba MD is Attending Physician. cp 00:24 Triage completed. ha1 01:39 US Extremity Venous Unilateral Ltd In Process Unspecified. EDMS 01:39 Lower Extremity Artery Uni Ltd US In Process Unspecified. EDMS 02:48 Patient has correct armband on for positive identification. Bed in low position. Call tb4 light in reach. Client placed on continuous cardiac and pulse oximetry monitoring. NIBP monitoring applied. Pulse ox on. Door closed. Lights dimmed. Warm blanket given. 02:48 No provider procedures requiring assistance completed. X-ray(s) taken. Ultrasound to tb4 leg. 02:58 Arm band placed on left wrist. tb4 03:18 Provided Education on: Follow up with primary care or return to ER if pain continues.. tb4 03:18 Patient did not have IV access during this emergency room visit. tb4 04:27 XRAY Foot LEFT 3 View In Process Unspecified. EDMS 04:27 XRAY Tib Fib LEFT In Process Unspecified. EDMS Administered Medications: 02:21 Drug: Gabapentin PO 300 mg PO once Route: PO; tb4 02:58 Follow up: Response: No adverse reaction tb4 02:21 Drug: Diazepam IM 5 mg IM once Route: IM; Site: left deltoid; tb4 02:58 Follow up: Response: No adverse reaction; Anxiety decreased; RASS: Alert and Calm (0) tb4 02:21 Drug: Hydrocodone-Acetaminophen PO (7.5 mg-325 mg) 1 tabs PO once; RASS on ADMIN: tb4 Combtv4, Very Agttd3, Agttd2, Rstlss1, AlertClm0, Drwsy-1, Lt Sdtn-2, Mod Sdtn-3, Dp Sdtn-4, UnArsble-5 Route: PO; 02:57 Follow up: Response: No adverse reaction; Pain is decreased; RASS: Alert and Calm (0) tb4 02:22 Drug: Ketorolac IM 30 mg IM once Route: IM; Site: right deltoid; tb4 02:58 Follow up: Response: No adverse reaction; Pain is decreased tb4 Medication: 02:13 VIS not applicable for this client. tb4 Outcome: 03:06 Discharge ordered by . terrie 03:30 Discharged to home ambulatory, tb4 03:30 Condition: stable 03:30 Discharge instructions given to patient, Instructed on discharge instructions, follow up and referral plans. Demonstrated understanding of instructions, follow-up care, medications, Prescriptions given X 2, 03:31 Patient left the ED. tb4 Signatures: Dispatcher [employer] EDMS Jw Beasley, AIDE PAJovana Montejo cp, RN RN ha1 Lesli Beasley Terri, RN RN tb4
--- NOTE | 2025-09-17 03:16 | RAD REPORT ---
EXAM: US Duplex Left Lower Extremity Veins CLINICAL HISTORY: PAIN TECHNIQUE: Real-time duplex ultrasound scan of the left lower extremity veins integrating B-mode two-dimensional vascular structure, Doppler spectral analysis, color flow Doppler imaging and compression. COMPARISON: No relevant prior studies available. FINDINGS: Deep veins: Unremarkable. No DVT in the visualized common femoral, femoral, proximal deep femoral , popliteal or visualized calf veins. The veins demonstrate normal color flow, are normally compressible, with normal phasic flow and/or augmentation response. Superficial veins: Unremarkable. No thrombus in the visualized great saphenous vein. Soft tissues: No acute findings. No popliteal cyst. IMPRESSION: No evidence for deep venous thrombosis within the left lower extremity. Electronically signed by: Percy Sprague MD 09/17/2025 03:01 AM CDT Due to temporary technical issues with the PACS/[employer] reporting system, reports are being mahnaz d by the in-house radiologist without review as a courtesy to ensure prompt reporting the interpreting radiologist is fully responsible for the content of the report. Transcribed Date/Time: 09/17/2025 3:15 AM
--- NOTE | 2025-09-17 03:16 | RAD REPORT ---
EXAM: US Duplex Left Lower Extremity Arteries FACILITY: [facility] CLINICAL HISTORY: 55 years, Male; PAIN TECHNIQUE: Real-time duplex ultrasound scan of the left lower extremity arteries integrating B-mode two-dimens ional vascular structure, Doppler spectral analysis and color flow Doppler imaging. COMPARISON: No relevant prior studies available. FINDINGS: Left common femoral artery: 91 cm/s. No acute findings. No occlusion or significant stenosis on color flow and spectral Doppler imaging. Normal waveform. Left superficial femoral artery: 75 cm/s. No acute findings. No occlusion or significant stenos is on color flow and spectral Doppler imaging. Normal waveform. Left popliteal artery: 56 cm/s. No acute findings. No occlusion or significant stenosis on colo r flow and spectral Doppler imaging. Normal waveform. Left calf/foot arteries: 97 cm/s. No acute findings. No occlusion or significant stenosis on co rome flow and spectral Doppler imaging. Normal waveform. Soft tissues: Unremarkable. IMPRESSION: Unremarkable left lower extremity duplex arterial ultrasound. Electronically signed by: Roberto Carlos Gomez MD 09/17/2025 03:04 AM CDT H Due to temporary technical issues with the PACS/[employer] reporting system, reports are being mahnaz d by the in-house radiologist without review as a courtesy to ensure prompt reporting the interpreting radiologist is fully responsible for the content of the report. Transcribed Date/Time: 09/17/2025 3:16 AM
[2025-09-17 04:18] VITALS: TEMP 98.2
[2025-09-17 04:21] VITALS: BP 138/84; O2SAT 100
--- NOTE | 2025-09-17 05:57 | RAD REPORT ---
EXAM: XR FOOT 3 OR MORE VIEWS LEFT 09/17/2025 02: 5:00 AM COMPARISON: None available. CLINICAL HISTORY: Pain. TECHNIQUE: 3 views X-ray of the left foot was performed. FINDINGS: BONES AND JOINTS: No acute fracture. Small calcaneal spurs are noted. No joint dislocation. SOFT TISSUES: The soft tissues are unremarkable. IMPRESSION: 1. No acute findings. 2. Small calcaneal spurs. Electronically signed by: Anant Steiner MD 09/17/2025 04:54 AM CDT Due to temporary technical issues with the PACS/[employer] reporting system, reports are being mahnaz d by the in-house radiologist without review as a courtesy to ensure prompt reporting the interpreting radiologist is fully responsible for the content of the report. Transcribed Date/Time: 09/17/2025 5:56 AM
--- NOTE | 2025-09-17 05:57 | RAD REPORT ---
EXAM: 2 VIEW(S) XRAY OF THE LEFT TIBIA AND FIBULA 09/17/2025 02: 5:00 AM COMPARISON: None available. CLINICAL HISTORY: Pain. TECHNIQUE: 2 views X-ray of the left tibia and fibula were performed. FINDINGS: BONES AND JOINTS: No acute fracture. No focal osseous lesion. No joint dislocation. SOFT TISSUES: The soft tissues are unremarkable. IMPRESSION: 1. No acute findings. Electronically signed by: Anant Steiner MD 09/17/2025 04:56 AM CDT Due to temporary technical issues with the PACS/[employer] reporting system, reports are being mahnaz d by the in-house radiologist without review as a courtesy to ensure prompt reporting the interpreting radiologist is fully responsible for the content of the report. Transcribed Date/Time: 09/17/2025 5:57 AM
== END 2025-09-17 03:31 | disposition home or self-care (01) ==
LOC: ER 23:58
DX: M79.605 Pain in left leg (principal); M25.572 Pain in left ankle and joints of left foot; G62.9 Polyneuropathy, unspecified; F17.210 Nicotine dependence, cigarettes, uncomplicated
CPT/HCPCS: 73630; 73590; 93926; 93971; 96372; 99284; J1885; J3360